=== PATIENT | male | born 1940 | race Two or more races ===

== ENCOUNTER 2020-02-10 21:58 | Inpatient (IN) | payer MEDICARE, OTHER ==
[~2020-02-10] VITALS: Ht 167.6 cm; Wt 63.0 kg
[2020-02-10] MEDS ORDERED: ACETAMINOPHEN 650 MG/SUPP.RECT RC ONE ×2 (22:13→22:30)
--- NOTE | 2020-02-10 22:14 | NUR ---
PATIENT CAME TO ER BED 8 FROM [facility] C/O "MORE ALTERED THAN USUAL". PATIENT IS AAOX0. PATIENT IS RESPONSIVE TO PAINFUL STIMULI. PATIENT IS ON 15L OF NON REBREATHER UPON ARRIVAL. CONNECTED TO POTATO PEELER. RA HAS A 20G STARTED ON THE LEFT HAND.
[2020-02-10] MEDS ORDERED: IV NS 0.9% 500 ML BAG IV ONE (22:30)
[2020-02-10 22:38] LABS: BASOPHILS # (AUTO) 0.2 /CMM (0.0-0.2); BASOPHILS % (AUTO) 2.1 % (0.0-2.0); EOSINOPHILS % (AUTO) 0.1 % (0.0-6.0); HEMATOCRIT 41 % (39-51); HEMOGLOBIN 13.6 g/dL (13.5-17.5); LYMPHOCYTES # (AUTO) 1.4 /CMM (0.8-4.8); LYMPHOCYTES % (AUTO) 15.9 % (20.0-44.0); MEAN CORPUSCULAR HGB CONC 33 g/dl (31.0-36.0); MEAN CORPUSCULAR VOLUME 89 fL (80-96); MONOCYTES # (AUTO) 0.2 /CMM (0.1-1.30); MONOCYTES % (AUTO) 2.7 % (2.0-12.0); NEUTROPHILS # (AUTO) 7.2 /CMM (1.8-8.9); NEUTROPHILS % (AUTO) 79.2 % (43.0-81.0); PLATELET COUNT (AUTO) 239 /CMM (150-450); RED BLOOD CELL COUNT(AUTO) 4.63 MIL/uL (4.5-6.0); WHITE BLOOD COUNT (AUTO) 9.1 K/uL (4.3-11.0)
--- NOTE | 2020-02-10 22:39 | NUR ---
URINE, CULTURES, AND COVID SAMPLE SWAB TAKEN TO LAB.
--- NOTE | 2020-02-10 22:43 | NUR ---
PATIENT TAKEN TO CT.
[2020-02-10 22:47] LABS: APPEARANCE,URINE Cloudy (CLEAR); BILIRUBIN,URINE SMALL (NEGATIVE); BLOOD, URINE Moderate Ery/uL (NEGATIVE); COLOR,URINE Dark (YELLOW); KETONES,URINE Negative (NEGATIVE); LEUKOCYTE ESTERASE ,URINE Large (NEGATIVE); NITRITE, URINE Negative (NEGATIVE); PH,URINE 7.5 (5.0-8.0); PROTEIN,URINE >=300 mg/dl (NEGATIVE); UGLUCOSE Negative (NEGATIVE)
--- NOTE | 2020-02-10 22:49 | NUR ---
PATIENT RETURNED FROM CT.
[2020-02-10 22:50] LABS: CALCIUM, SERUM 8.8 mg/dL (8.5-10.1); CARBON DIOXIDE 25 mmol/L (21-32); CHLORIDE 105 mmol/L (98-107); CREATININE 1.9 mg/dL (0.6-1.3); GLUCOSE 126 mg/dL (74-106); POTASSIUM 4.3 mmol/L (3.5-5.1); SODIUM SERUM 139 mmol/L (136-145); UREA NITROGEN, BLOOD 49 mg/dL (7-18)
[2020-02-10] MEDS ORDERED: AZITHROMYCIN 500 MG in IV D5W 250 ML IV ONE (23:00)
[2020-02-10] MEDS ORDERED: CEFTRIAXONE 1GM BAG (ER ONLY) 1 GM/50 ML PIGGYBACK IV ONE (23:00)
[2020-02-10 23:03] LABS: ALANINE AMINOTRANSFERASE 25 U/L (12-78); ALBUMIN 2.4 g/dL (3.4-5.0); ALKALINE PHOSPHATASE 71 U/L (46-116); ASPARTATE AMINOTRANSFERASE 35 U/L (15-37); B-TYPE NATRIURETIC PEPTIDE 2653 PG/ML (0-125); BILIRUBIN,DIRECT 0.1 mg/dL (0.0-0.2); BILIRUBIN,TOTAL 0.2 mg/dL (0.2-1.0); TOTAL PROTEIN, SERUM 7.2 g/dL (6.4-8.2)
[2020-02-10] MEDS ORDERED: CEFTRIAXONE 1GM BAG (ER ONLY) 50 ML IV ONE (23:03)
[2020-02-10 23:14] LABS: BACTERIA,URINE Many /HPF (None Seen); RBC,URINE 51-80 /HPF (0-2); SQUAMOUS EPITHELIAL CELL,UR Rare /HPF (None Seen); WBC,URINE 51-80 /HPF (0-3)
[2020-02-10] MEDS ORDERED: AZITHROMYCIN 500 MG VIAL ONE (23:24)
[2020-02-10] MEDS ORDERED: ASPIRIN 300 MG/SUPP.RECT RC ONE ×2 (23:30→23:54)
--- NOTE | 2020-02-10 23:38 | NUR ---
CALLED FOR [facility] BED
[2020-02-11] MEDS ORDERED: ONDANSETRON HCL/PF 4 MG/2 ML VIAL IVP PRN
[2020-02-11] MEDS ORDERED: MAGNESIUM HYDROXIDE 30 ML UDC PO PRN
[2020-02-11] MEDS ORDERED: ACETAMINOPHEN 325 MG TABLET PO PRN
[2020-02-11] MEDS ORDERED: ZOLPIDEM TARTRATE 5 MG TABLET PO PRN
[2020-02-11] MEDS ORDERED: MAG HYDROX/AL HYDROX/SIMETH 30 ML UDC PO PRN
[2020-02-11] MEDS ORDERED: Z GUARD REMEDY 2 OZ OINT TP PRN
--- NOTE | 2020-02-11 00:03 | NUR ---
SEEN AND EXAMINED BY DR. RAZO.
--- NOTE | 2020-02-11 00:18 | NUR ---
[facility] CALLED FOR REPORT, STAFF SAID THAT THEY ARE BUSY, WILL CALL BACK AT 10MIN.
--- NOTE | 2020-02-11 00:34 | NUR ---
REPORT GIVEN TO BAKARI MCHUGH FOR RENALDO.
[2020-02-11 01:00] VITALS: BP 94/34
--- NOTE | 2020-02-11 01:00 | NUR ---
RN NOTE PATIENT ARRIVED FROM ER ACCOMPANIED BY 2 RNS UNDER ACLS PROTOCOL. PT CAME IN VIA GURNEY AND TRANSFERRED TO BED WITH 2 PERSON ASSIST. PT ARRIVED WITH 15L NON REBREATHER, PLACED ON TELE MONITOR WHICH SHOWS SINUS RHTHYM, PT IS NON VERBAL BUT PHYSICALLY RESPONSIVE TO VERBAL AND TACTILE STIMULI. VITAL SIGNS TAKEN AND WNL. COMPREHENSIVE PHYSICAL ASSESSMENT COMPLETED, PT KEPT CLEAN AND COMFORTABLE, CALL LIGHT WITHIN REACH, SAFETY MEASURES IN PLACE, NO FURTHER NEEDS AT THIS TIME.
--- NOTE | 2020-02-11 01:45 | NUR ---
RN NOTE PT CODE STATUS CURRENTLY NOT KNOWN, ATTEMPTED TO CALL SNF ([facility]) X 2 BUT NO ANSWER. ATTEMPTED TO CALL KALLI MILLIGAN (PRIMARY CONTACT) [phone] BUT NO ANSWER. WILL ENDORSE TO FOLLOW UP IN AM. PT WILL BE FULL CODE FOR NOW.
[2020-02-11 04:00] VITALS: BP 90/42
[2020-02-11 07:01] LABS: BASOPHILS % (AUTO) 0.1 % (0.0-2.0); HEMATOCRIT 39 % (39-51); HEMOGLOBIN 13.1 g/dL (13.5-17.5); LYMPHOCYTES # (AUTO) 1.1 /CMM (0.8-4.8); LYMPHOCYTES % (AUTO) 10.7 % (20.0-44.0); MEAN CORPUSCULAR HGB CONC 34 g/dl (31.0-36.0); MEAN CORPUSCULAR VOLUME 87 fL (80-96); MONOCYTES # (AUTO) 0.2 /CMM (0.1-1.30); MONOCYTES % (AUTO) 2.1 % (2.0-12.0); NEUTROPHILS # (AUTO) 8.7 /CMM (1.8-8.9); NEUTROPHILS % (AUTO) 87.1 % (43.0-81.0); PLATELET COUNT (AUTO) 244 /CMM (150-450); RED BLOOD CELL COUNT(AUTO) 4.44 MIL/uL (4.5-6.0)
[2020-02-11 07:22] LABS: CALCIUM, SERUM 8.1 mg/dL (8.5-10.1); CARBON DIOXIDE 23 mmol/L (21-32); CHLORIDE 106 mmol/L (98-107); CREATININE 1.8 mg/dL (0.6-1.3); GLUCOSE 92 mg/dL (74-106); MAGNESIUM 1.6 mg/dL (1.8-2.4); PHOSPHORUS 3.9 mg/dL (2.5-4.9); POTASSIUM 4.2 mmol/L (3.5-5.1); SODIUM SERUM 140 mmol/L (136-145); UREA NITROGEN, BLOOD 54 mg/dL (7-18)
[2020-02-11 07:24] LABS: CHOLESTEROL 88 mg/dL (<200); HDL CHOLESTEROL 15 mg/dL (40-60); LDL 39 mg/dL (0-99); THYROID STIMULATING HORMONE 3.717 uIU/mL (0.358-3.74); TRIGLYCERIDES 80 mg/dL (30-150)
--- NOTE | 2020-02-11 07:30 | NUR ---
[facility] RN NOTES RECEIVED PATIENT, OPENS EYES, NON VERBAL, ON 15L NONREBREATHER MASK, NOT IN ANY DISTRESS, RESPIRATION UNLABORED, SINUS RHYTHM, NO SIGNS OF PAIN, SEE NURSING FLOWSHEET FOR SKIN ISSUES. WITH LEFT HAND G 20 AND RT WRIST G 20, FLUSHES WELL, BOTH SITES CLEAR. NPO AT THIS TIME, ISOLATION PRECAUTION OBSERVED, BED LOW LOCKED, CALL LIGHT WITHIN REACH. WILL MONITOR.
[2020-02-11] MEDS ORDERED: ATOR40TA PO (07:43)
[2020-02-11] MEDS ORDERED: MEGE400O4 PO (07:43)
[2020-02-11] MEDS ORDERED: MULT-447 PO (07:43)
[2020-02-11] MEDS ORDERED: MAGN400O6 PO (07:43)
[2020-02-11] MEDS ORDERED: ASCO-352 PO (07:43)
[2020-02-11] MEDS ORDERED: DOCU-141 PO (07:43)
[2020-02-11] MEDS ORDERED: BISA10SU11 RC (07:43)
[2020-02-11] MEDS ORDERED: ACET-2605 PO (07:43)
[2020-02-11] MEDS ORDERED: APIX5TAB PO (07:43)
[2020-02-11] MEDS ORDERED: NA P133E RC (07:43)
[2020-02-11] MEDS ORDERED: ACET-868 PO (07:43)
[2020-02-11] MEDS ORDERED: GABA-532 PO (07:43)
[2020-02-11] MEDS ORDERED: BACL10TA PO (07:43)
[2020-02-11] MEDS ORDERED: HYDR-4384 PO ×2 (07:43)
[2020-02-11 08:00] VITALS: BP 95/42
[2020-02-11] MEDS: ASPIRIN EC 81 MG TABLET.DR PO SCH (08:26)
[2020-02-11] MEDS: PANTOPRAZOLE 40 MG TABLET.DR PO SCH (08:26)
[2020-02-11] MEDS ORDERED: Magnesium 1GM/D5W 100ML PREMIX 50 ML IV SCH (08:47)
--- NOTE | 2020-02-11 09:30 | NUR ---
RN NOTES DUE MEDS GIVEN
[2020-02-11] MEDS: Sodium Bicarbonate 100 MEQ in IV D5/0.45 NACL 1,000 ML IV PRN (10:27)
[2020-02-11] MEDS ORDERED: IV NS 0.9% 1,000 ML IV PRN (11:24)
[2020-02-11 12:00] VITALS: BP 100/53
[2020-02-11] MEDS: ENOXAPARIN SODIUM 30 MG/0.3 ML DISP.SYRIN SQ SCH (12:26)
[2020-02-11 16:00] VITALS: BP 103/63
[2020-02-11] MEDS: IV D5/ 0.9% NACL 1,000 ML IV PRN (18:19)
--- NOTE | 2020-02-11 19:10 | NUR ---
project finance analyst opening notes Received Pt from morning nurse. Pt is resting in bed comfortably. Pt is nonverbal and able to open eyes. Respiration is normal in 15 L non rebreather mask. No SOB. No S/S of distress noted. Tele monitor showed SR Hr at 73 bpm. L hand# 20 is clean, intact and patent. R wrist is clean, intact and patent. Pt status is NPO. Isolation precautions is maintained. Safety precautions is maintained. Bed at low position, brakes locked, side rails upX3, bed alarm is on and call light is within reach. Will continue to monitor.
--- NOTE | 2020-02-11 19:40 | NUR ---
RN NOTES ALL NEEDS MET. STABLE, NOT IN ANY DISTRESS. ENDORSED TO NEXT SHIFT FOR RENALDO.
[2020-02-11 20:00] VITALS: BP 100/54
--- NOTE | 2020-02-11 20:45 | NUR ---
iron worker apprentice notes Jonnathan from lab called to informed Pt's blood cx is gram positive cocci in cluster. MD is notified and informed. Charge nurse is aware and informed. Will continue to monitor.
--- NOTE | 2020-02-11 20:55 | NUR ---
2054 DR RAZO WAS NOTIFIED OF CRITICAL BLOOD CULTURE RESULT GRAM POSITIVE COCCI IN CLUSTERS WITH NO ORDER MADE.
[2020-02-11] MEDS: CEFTRIAXONE 1 G in IV D5W 50 ML IV SCH (22:02)
[2020-02-12] VITALS: BP 90/40
[2020-02-12] MEDS ORDERED: AZITHROMYCIN 500 MG in IV D5W 250 ML IV SCH ×2
--- NOTE | 2020-02-12 00:01 | NUR ---
cognos administrator notes Pt keep removing non rebreather. Made aware risks and benefits. Pt keep removing non rebreather. Pt is not compliant. Pt also scratched the staff. Informed and notified Dr. Tavares. ordered bilateral soft wrist restraints. Order carried out. Charge nurse is aware and informed. Will continue to monitor.
[2020-02-12 04:00] VITALS: BP 116/54
--- NOTE | 2020-02-12 06:26 | NUR ---
lighting technician closing notes Pt is resting in bed comfortably. Pt is nonverbal and able to open eyes. Respiration is normal in 15 L non rebreather mask. No SOB. No S/S of distress noted. Tele monitor showed SR with bundle branch Hr at 89 bpm. Vs is stable. Afebrile. Routine meds were given as ordered. L hand# 20 is clean, intact and patent. R wrist is clean, intact and patent. Wound care provided as ordered. Kept Pt clean, dry and comfortable. Bilateral soft wrist restraints are intact, skin is warm to touch, circulation is check Q 2 hr. Isolation precautions is maintained. Safety precautions is maintained. Bed at low position, brakes locked, side rails upX3, bed alarm is on and call light is within reach. Will endorse to morning nurse for RENALDO.
[2020-02-12] MEDS: PANTOPRAZOLE 40 MG TABLET.DR PO SCH (07:30)
[2020-02-12 08:00] VITALS: BP 111/60
--- NOTE | 2020-02-12 08:00 | NUR ---
SMOKE EATER OPENING NOTES RECEIVED PATIENT IN BED, NON VERBAL, EYES OPEN, RESPOND TO VOICE COMMAND, 15L NON REBREATHER MASK, NO SIGNS OF REPIRATORY DISTRESS, NPO, FOR FURTHER SWALLOW EVAL, LEFT HAND #20, RIGHT WRIST #20, D5NS @ 75ML/HR, NA HCO3 @ 75ML/HR, SIDE RAILS UP.
[2020-02-12 08:01] LABS: BASOPHILS % (AUTO) 0.1 % (0.0-2.0); EOSINOPHILS % (AUTO) 0.1 % (0.0-6.0); HEMATOCRIT 38 % (39-51); HEMOGLOBIN 12.7 g/dL (13.5-17.5); LYMPHOCYTES # (AUTO) 0.6 /CMM (0.8-4.8); LYMPHOCYTES % (AUTO) 9.6 % (20.0-44.0); MEAN CORPUSCULAR HGB CONC 34 g/dl (31.0-36.0); MEAN CORPUSCULAR VOLUME 87 fL (80-96); MONOCYTES # (AUTO) 0.2 /CMM (0.1-1.30); MONOCYTES % (AUTO) 2.7 % (2.0-12.0); NEUTROPHILS # (AUTO) 5.4 /CMM (1.8-8.9); NEUTROPHILS % (AUTO) 87.5 % (43.0-81.0); PLATELET COUNT (AUTO) 271 /CMM (150-450); RED BLOOD CELL COUNT(AUTO) 4.29 MIL/uL (4.5-6.0); WHITE BLOOD COUNT (AUTO) 6.1 K/uL (4.3-11.0)
[2020-02-12 08:50] LABS: ALBUMIN 2.2 g/dL (3.4-5.0); BILIRUBIN,TOTAL 0.3 mg/dL (0.2-1.0); CALCIUM, SERUM 8.4 mg/dL (8.5-10.1); CREATININE 1.3 mg/dL (0.6-1.3); MAGNESIUM 1.8 mg/dL (1.8-2.4); TOTAL PROTEIN, SERUM 6.8 g/dL (6.4-8.2)
[2020-02-12] MEDS: ASPIRIN EC 81 MG TABLET.DR PO SCH (09:00)
[2020-02-12] MEDS: ENOXAPARIN SODIUM 30 MG/0.3 ML DISP.SYRIN SQ SCH (09:57)
[2020-02-12] MEDS: IV D5/ 0.9% NACL 1,000 ML IV PRN (10:04)
[2020-02-12 12:00] VITALS: BP 106/62
[2020-02-12] MEDS: DOXYCYCLINE HYCLATE (100 MG) 100 MG TABLET PO SCH (12:00)
[2020-02-12] MEDS: Sodium Bicarbonate 100 MEQ in IV D5/0.45 NACL 1,000 ML IV PRN (12:02)
[2020-02-12 12:53] LABS: ABG BASE EXCESS 0.6 mmol/L; ABG OXYGEN SATURATION 97.9 % (92.0-98.5); ABG PCO2 32.1 mmHg (35.0-45.0); ABG PO2 98.9 mmHg (75.0-100.0); COHb 0.4 % (0.5-1.5); MetHb 0.3 % (0.0-1.5); O2Hb 97.2 % (94.0-97.0); SITE, ABG Left Radial
[2020-02-12] MEDS: HYDROXYCHLOROQUINE 200 MG TABLET PO SCH ×2 (13:00→17:00)
--- NOTE | 2020-02-12 13:04 | NUR ---
RT NOTE ABG RESULTS RELAYED TO LOLITA FABIAN.
--- NOTE | 2020-02-12 13:05 | NUR ---
MARKETING REP NOTES DR. WHITE INFORMED REGARDING PATIENT'S ABG RESULT.
[2020-02-12] MEDS ORDERED: FEE PK DOSING 1 MIN EA MC ONE (13:08)
--- NOTE | 2020-02-12 13:10 | NUR ---
PARASITOLOGY TEACHER NOTES VIBRAMYCIN AND PLAQUENIL MEDICATION NOT GIVEN. PATIENT WAS NOT ABLE TO TOLERATE DRINKING WATER. RISK FOR ASPIRATION. PATIENT IS ALSO NON VERBAL.
[2020-02-12] MEDS: methylPREDNISolone SOD SUCC 125 MG/2ML VIAL IV SCH (13:16)
[2020-02-12 13:20] LABS: CALCIUM, SERUM 8.5 mg/dL (8.5-10.1); CREATININE 1.3 mg/dL (0.6-1.3); POTASSIUM 4.3 mmol/L (3.5-5.1)
[2020-02-12 13:34] LABS: C-REACTIVE PROTEIN 23.3 mg/dL (0.0-0.9)
--- NOTE | 2020-02-12 13:40 | NUR ---
RT NOTE LOLITA FABIAN INFORMED RT PER . PELEG PT KEPT IN [facility]. PT ON 100% NON REBREATHER AT 15L.
[2020-02-12] MEDS: VANCOMYCIN 1 GM in IV D5W 250 ML IV SCH (14:09)
--- NOTE | 2020-02-12 15:39 | NUR ---
BOOM PUMP OPERATOR NOTES COVID TEST SENT.
[2020-02-12 16:00] VITALS: BP 115/61
[2020-02-12] MEDS ORDERED: Sodium Phosphate 15 MMOL in IV NS 0.9% 245 ML IV SCH (17:00)
--- NOTE | 2020-02-12 18:00 | NUR ---
OIL WELL GUN PERFORATOR OPERATOR NOTES PLAQUENIL NOT GIVEN. PATIENT WAS UNABLE TO TOLERATE WATER AND SOUP. PATIENT IS RISK FOR ASPIRATION AND NON VERBAL.
--- NOTE | 2020-02-12 19:15 | NUR ---
TRACKWALKER CLOSING NOTES ENDORSED PATIENT IN BED, NON VERBAL, EYES OPEN, RESPOND TO VOICE COMMAND, 15L NON REBREATHER MASK, NO SIGNS OF REPIRATORY DISTRESS, NPO, FOR FURTHER SWALLOW EVAL, LEFT HAND #20, RIGHT WRIST #20, D5NS @ 75ML/HR, INFUSING WELL, NO REDNESS OR INFILTRATION NOTED, SIDE RAILS UP FOR SAFETY.
--- NOTE | 2020-02-12 19:20 | NUR ---
RN NOTE RECEIVED PATIENT IN BED RESTING, WITH HOB ELEVATED. A&O X1. PATIENT IS CONFUSED. ON ISOLATION FOR COVID. BREATHING IS EVEN AND NON LABORED. NO SOB NOTED AT THIS TIME. ON O2 15 LPM VIA NON-REBREATHER MASK. PATIENT IS UNABLE TO AMBULATE. EXTREMITIES ARE RIGID. BLE ARE CONTRACTED. IV SITES ON LEFT HAND AND RIGHT WRIST CLEAN AND PATENT. IN NO APPARENT DISTRESS NOTED AT THIS TIME. BED IS LOWERED TO LOWEST LEVEL FOR SAFETY. WILL CONTINUE TO MONITOR.
[2020-02-12 20:00] VITALS: BP 116/66
[2020-02-12] MEDS: CEFTRIAXONE 1 G in IV D5W 50 ML IV SCH (23:04)
[2020-02-13] VITALS (7 sets, daily range): BP systolic 125–139; BP diastolic 60–80
[2020-02-13 05:09] LABS: CREATININE KINASE (CK),MB 3.9 ng/mL (0.0-10.4); PTH, INTACT 16 pg/mL (15-65)
[2020-02-13] MEDS: VANCOMYCIN 1 GM in IV D5W 250 ML IV SCH (06:03)
[2020-02-13] MEDS: IV D5/ 0.9% NACL 1,000 ML IV PRN ×2 (06:03→23:06)
--- NOTE | 2020-02-13 06:46 | NUR ---
RN NOTE PATIENT REMAINED STABLE THROUGHOUT THE NIGHT. NO SIGNIFICANT CHANGES NOTED. PATIENT KEPT CLEAN, DRY, AND COMFORTABLE. ALL WOUND CARE RENDERED. ALL DUE MEDS GIVEN ORDERED AND TOLERATED WELL. REPOSITIONED Q2H. ALL NEEDS ATTENDED AND MET. WILL ENDORSE TO AM SHIFT RN FOR CONTINUATION OF CARE.
[2020-02-13] MEDS: PANTOPRAZOLE 40 MG TABLET.DR PO SCH (07:30)
--- NOTE | 2020-02-13 08:00 | NUR ---
telecommunication tower technician note patient in bed, more awake and alert,non verbal at this time able to take Plaquenil at this time , on nonrebreather mask 15 l ,sat 100% on tele monitor sr hr 85, rt hand is swollen unable to flush hl well bed in lowest and locked position , will cont to monitor, on ivf as ordered, not in distress at this time , hold breakfast per edann roberts dnp notes, will f\u Addendum: 02/13/20 at 0908 by ANDI VAUGHAN RN 0800 rt arm and rt hand is swollen , keep elevated will inform to
[2020-02-13 08:01] LABS: BASOPHILS % (AUTO) 0.1 % (0.0-2.0); CALCIUM, SERUM 8.2 mg/dL (8.5-10.1); CREATININE 0.9 mg/dL (0.6-1.3); HEMATOCRIT 35 % (39-51); HEMOGLOBIN 11.7 g/dL (13.5-17.5); LYMPHOCYTES # (AUTO) 0.5 /CMM (0.8-4.8); LYMPHOCYTES % (AUTO) 11.6 % (20.0-44.0); MEAN CORPUSCULAR HGB CONC 34 g/dl (31.0-36.0); MEAN CORPUSCULAR VOLUME 87 fL (80-96); MONOCYTES # (AUTO) 0.3 /CMM (0.1-1.30); MONOCYTES % (AUTO) 6.8 % (2.0-12.0); NEUTROPHILS # (AUTO) 3.3 /CMM (1.8-8.9); NEUTROPHILS % (AUTO) 81.5 % (43.0-81.0); PLATELET COUNT (AUTO) 290 /CMM (150-450); POTASSIUM 3.3 mmol/L (3.5-5.1); RED BLOOD CELL COUNT(AUTO) 3.94 MIL/uL (4.5-6.0); WHITE BLOOD COUNT (AUTO) 4.1 K/uL (4.3-11.0)
[2020-02-13] MEDS: HYDROXYCHLOROQUINE 200 MG TABLET PO SCH ×2 (08:29→16:50)
[2020-02-13] MEDS: methylPREDNISolone SOD SUCC 125 MG/2ML VIAL IV SCH (08:31)
[2020-02-13] MEDS: ENOXAPARIN SODIUM 30 MG/0.3 ML DISP.SYRIN SQ SCH (08:32)
[2020-02-13] MEDS: ASPIRIN EC 81 MG TABLET.DR PO SCH (08:41)
[2020-02-13] MEDS: THERAHONEY GEL 1.5 OZ TUBE TP SCH (08:42)
[2020-02-13] MEDS ORDERED: POTASSIUM CHLORIDE 20 MEQ TAB.PRT.SR PO SCH (10:30)
--- NOTE | 2020-02-13 10:46 | NUR ---
INSTALLERS MECHANICAL NOTE SPOKE WITH DR WHITE NOTIFIED RT ARM SWOLLEN NO DOPPLER STUDY AT THIS TIME OK TO ELEVATE ARM TOLERATED ALSO SPOKE WITH DR PERALES OK TO ORDER SWALLOW EVAL TODAY .PATENT MORE ALERT ,WILL F\U
[2020-02-13 11:25] LABS: ABG OXYGEN SATURATION 98.3 % (92.0-98.5); SITE, ABG Right Radial
[2020-02-13 11:26] LABS: ABG BASE EXCESS 0.7 mmol/L; ABG PCO2 32.7 mmHg (35.0-45.0); ABG PH 7.475 (7.350-7.450); ABG PO2 126.8 mmHg (75.0-100.0); AaDO2 409.3 mmHg; COHb 1.1 % (0.5-1.5); MetHb 0.7 % (0.0-1.5); O2Hb 95.7 % (94.0-97.0); VENT MODE, BG nrb
[2020-02-13] MEDS: DOXYCYCLINE HYCLATE (100 MG) 100 MG TABLET PO SCH (11:54)
[2020-02-13] MEDS ORDERED: INVESTIGATIONAL MED MISC 1 EA in IV NS 0.9% 250 ML IV ONE (12:00)
--- NOTE | 2020-02-13 13:00 | NUR ---
RN NOTE PICC LINE NURSE AT BED SIDE MIDLINE 18 G INSERTED FRANCHESCA. WILL MONITOR
--- NOTE | 2020-02-13 17:17 | NUR ---
telecommunications network planner note unable to remove soft restrain, patient still at risk to remove all lines
--- NOTE | 2020-02-13 18:51 | NUR ---
telegraph lineman note all needs attended ,will cont to monitor closely ,on 6l of nc ,not in distress
[2020-02-13] MEDS: CEFTRIAXONE 1 G in IV D5W 50 ML IV SCH (22:57)
[2020-02-14] VITALS (8 sets, daily range): BP systolic 125–157; BP diastolic 62–81
--- NOTE | 2020-02-14 | NUR ---
RN NOTES FREQUENT ROUNDING DONE. NO DISTRESS NOTED. PATIENT AWAKE, REQUESTED FOR WATER BY POINTING AT CUP, EXPLAINED HE IS STILL NPO, GAVE ICE CHIPS INSTEAD, TOLERATED WELL. WILL CONT TO MONITOR.
[2020-02-14] MEDS: VANCOMYCIN 1 GM in IV D5W 250 ML IV SCH ×2 (01:24→19:03)
--- NOTE | 2020-02-14 04:51 | NUR ---
RN NOTES LAB PERSONNEL GEORGE STATED PATIENT'S COVID19 RESULT INDETERMINATE. MADE AWARE. AWAITING FOR RESPONSE.
[2020-02-14 07:05] LABS: CALCIUM, SERUM 8.1 mg/dL (8.5-10.1); CREATININE 0.9 mg/dL (0.6-1.3); POTASSIUM 4.1 mmol/L (3.5-5.1)
--- NOTE | 2020-02-14 07:20 | NUR ---
RN NOTES PATIENT IN BED, AWAKE AND ALERT. ON TELE MONITOR SR-SB LOWEST 55 BPM NOTED. STILL ON OXYGEN 6L VIA SIMPLE MASK, TOLERATING WELL, SATURATING >95%. ON BILATERAL SOFT WRIST RESTRAIN FOR PATIENT SAFETY, FREQUENT CHECKS DONE PER PROTOCOL. IV SITES ALL FLUSHING AND PATENT, D5NS RUNNING AT 75ML/HR, TOLERATING WELL. RIGHT ARM STILL WITH NONPITTING EDEMA NOTED, ELEVATED, PER AM RN REPORT MD AWARE. ALL MD ORDERS ATTENDED, ALL NEEDS ANTICIPATED AND MET. REPOSITIONED PATIENT Q2H. SAFETY MEASURES MAINTAINED; CALL LIGHT WITHIN REACH, SIDE RAILS UP X2, HOB ELEVATED, BED LOCKED AND IN LOW POSITION. ENDORSED TO AM RN FOR RENALDO. Addendum: 02/14/20 at 0816 by CALLI CONTRERAS RN IN ADDITION, DR. RAZO MADE AWARE OF PATIENT COVID19 RESULT INDETERMINATE, NO NEW ORDERS NOTED.
--- NOTE | 2020-02-14 08:20 | NUR ---
DEMONSTRATOR SEWING TECHNIQUES OPENING NOTES PT A/O 1-2, ALERT AND RESPONSIVE. ON CONTACT/DROPLET ISOLATION DUE TO + COVID19, RESULT INTERMEDIATE, WAITING FOR PROVIDER RESPONSE. RESPIRATION EVEN AND NON LABORED WITH NO ACUTE RESPIRATORY DISTRESS, ON O2 AT 5LPM VIA N/C, HOB ELEVATED. ABD SOFT AND NON DISTENDED WITH ACTIVE BOWEL SOUNDS. SKIN WARM TO TOUCH AND DRY. NO S/SX OF PAIN AND DISCOMFORT. RIGHT ARM WITH NON PITTING EDEMA, FRANCHESCA MIDLINE RUNNING D5NS AT 75 ML/HR, LEFT HAND #20. PT SINUS BRADYCARDIA 50 PER TELE MONITOR. BED IN LOW LOCKED POSITION, SR X2 UP FOR SAFETY. WILL CONTINUE TO MONITOR CARE
[2020-02-14] MEDS: PANTOPRAZOLE 40 MG TABLET.DR PO SCH (08:24)
[2020-02-14] MEDS: methylPREDNISolone SOD SUCC 125 MG/2ML VIAL IV SCH (08:24)
[2020-02-14] MEDS: ASPIRIN EC 81 MG TABLET.DR PO SCH (08:24)
[2020-02-14] MEDS: ENOXAPARIN SODIUM 30 MG/0.3 ML DISP.SYRIN SQ SCH (08:25)
[2020-02-14] MEDS: HYDROXYCHLOROQUINE 200 MG TABLET PO SCH ×2 (08:27→16:53)
[2020-02-14] MEDS: THERAHONEY GEL 1.5 OZ TUBE TP SCH (08:28)
--- NOTE | 2020-02-14 10:19 | NUR ---
LAMP DECORATOR NOTES REPORT GIVEN TO ANGELLA AMADOR DNP. WHEN GIVEN MEDICATION CRUSH MEDS TO PATIENT, HE IS ABLE TO SWALLOW APPLE SAUCE AND WATER WITH NO THICKENER, NO COUGHING/CHOKING NOTED, HOB ELEVATED FR ASPIRATION PRECAUTION. NEW ORDER OBTAINED FROM THE PROVIDER TO ADVANCE DIET TO MECHANICAL SOFT. ORDER READ BACK NOTED AND CARRIED OUT. WILL MONITOR CARE
[2020-02-14] MEDS: DOXYCYCLINE HYCLATE (100 MG) 100 MG TABLET PO SCH (11:35)
--- NOTE | 2020-02-14 12:06 | NUR ---
DRY CHAIN PULLER NOTES COVID 19 SWAB RE-DONE TODAY DUE TO INTERMIDIATE RESULT FROM THE LAST TESTING. DROPPED OFF TO THE LAB
[2020-02-14] MEDS: INVESTIGATIONAL MED MISC 1 EA in IV NS 0.9% 250 ML IV SCH (12:11)
[2020-02-14] MEDS: IV D5/ 0.9% NACL 1,000 ML IV PRN (18:29)
--- NOTE | 2020-02-14 18:49 | NUR ---
FIG CAPRIFIER CLOSING NOTES PT A/O 1-2. NOT IN ACUTE RESPIRATORY DISTRESS SATING 95-100% AT 5LPM VIA N/C, HOB ELEVATED. BM X1 TODAY. NO NEW SKIN BREAKDOWN, WARM TO TOUCH AND DRY. NO S/SX OF PAIN AND DISCOMFORT. IV SITE AT RIGHT UPPER ARM MIDLINE RUNNING NS D5NS AT 75 ML/HR AND LEFT HAND #20, IV SITE PATENT IN FLUSHING, WITH NO S/SX OF INFILTRATION. TELE MONITOR SHOWS SINUS RHYTHM 79 WITH EPISODES OF SINUS BRADYCARDIA 40'S AND PVC. ON DROPLET/CONTACT ISOLATION DUE TO + COVID19. BED IN LOW LOCKED POSITION, SR X2 UP FOR SAFETY. ENDORSED PT CARE TO NEXT SHIFT.
[2020-02-14] MEDS: CEFTRIAXONE 1 G in IV D5W 50 ML IV SCH (23:03)
[2020-02-15] VITALS: BP 162/77
[2020-02-15 04:00] VITALS: BP 136/70
[2020-02-15 07:56] LABS: BASOPHILS % (AUTO) 0.1 % (0.0-2.0); CALCIUM, SERUM 7.8 mg/dL (8.5-10.1); CREATININE 0.8 mg/dL (0.6-1.3); HEMATOCRIT 36 % (39-51); HEMOGLOBIN 11.8 g/dL (13.5-17.5); LYMPHOCYTES # (AUTO) 1.1 /CMM (0.8-4.8); LYMPHOCYTES % (AUTO) 14.2 % (20.0-44.0); MAGNESIUM 1.6 mg/dL (1.8-2.4); MEAN CORPUSCULAR HGB CONC 33 g/dl (31.0-36.0); MEAN CORPUSCULAR VOLUME 87 fL (80-96); MONOCYTES # (AUTO) 0.7 /CMM (0.1-1.30); MONOCYTES % (AUTO) 8.9 % (2.0-12.0); NEUTROPHILS # (AUTO) 6.1 /CMM (1.8-8.9); NEUTROPHILS % (AUTO) 76.8 % (43.0-81.0); PHOSPHORUS 1.8 mg/dL (2.5-4.9); PLATELET COUNT (AUTO) 362 /CMM (150-450); POTASSIUM 3.3 mmol/L (3.5-5.1); WHITE BLOOD COUNT (AUTO) 7.9 K/uL (4.3-11.0)
[2020-02-15 08:00] VITALS: BP 130/76
--- NOTE | 2020-02-15 08:30 | NUR ---
tele section laborer: notes received pt in bed awake, alert to self only. reality orientation provided prn. pt is on o2 at 5l/min via n/c. hob elevated. isolation precaution maintained. will continue to monitor.
[2020-02-15] MEDS: ASPIRIN EC 81 MG TABLET.DR PO SCH (08:43)
[2020-02-15] MEDS: HYDROXYCHLOROQUINE 200 MG TABLET PO SCH ×2 (08:43→17:02)
[2020-02-15] MEDS: PANTOPRAZOLE 40 MG TABLET.DR PO SCH (08:43)
[2020-02-15] MEDS: ENOXAPARIN SODIUM 30 MG/0.3 ML DISP.SYRIN SQ SCH (08:44)
--- NOTE | 2020-02-15 09:30 | NUR ---
tele cell tuber machine: md visit seen and examined by dr. bacon with verbal order for wound consult re: right nares pressure ulcer. order carried out.
[2020-02-15 09:31] LABS: ALBUMIN 2.1 g/dL (3.4-5.0); BILIRUBIN,DIRECT 0.1 mg/dL (0.0-0.2); BILIRUBIN,TOTAL 0.4 mg/dL (0.2-1.0); TOTAL PROTEIN, SERUM 6.4 g/dL (6.4-8.2)
[2020-02-15] MEDS: methylPREDNISolone SOD SUCC 125 MG/2ML VIAL IV SCH (09:31)
--- NOTE | 2020-02-15 10:00 | NUR ---
tele counter intelligence technician: notes titrated o2 to 4l/min via n/c and satting at 98%. kept comfortable. will continue to monitor.
[2020-02-15] MEDS: Magnesium 1GM/D5W 100ML PREMIX 100 ML IV SCH ×2 (10:23→11:26)
[2020-02-15] MEDS ORDERED: POTASSIUM CHLORIDE 20 MEQ TAB.PRT.SR PO SCH (10:30)
--- NOTE | 2020-02-15 10:45 | NUR ---
tele burrer operator: morenita eval s.t. at bedside and did swallow eval and recommends puree diet with swallow safety precautions. md aware with change diet to puree. will continue to monitor.
--- NOTE | 2020-02-15 10:55 | NUR ---
tele poll clerk: notes lab called and informed me that pt covid result is positive. cn aware.
[2020-02-15] MEDS ORDERED: NEUTRA PHOS 1 POWD.PACKET PO ONE (11:00)
[2020-02-15 12:00] VITALS: BP 126/80
--- NOTE | 2020-02-15 12:00 | NUR ---
tele parcel post officer: notes pt remains confused and disoriented. reality orientation provided prn. will continue to monitor.
[2020-02-15] MEDS: DOXYCYCLINE HYCLATE (100 MG) 100 MG TABLET PO SCH (13:01)
[2020-02-15] MEDS: THERAHONEY GEL 1.5 OZ TUBE TP SCH (13:01)
[2020-02-15] MEDS: INVESTIGATIONAL MED MISC 1 EA in IV NS 0.9% 250 ML IV SCH (13:06)
[2020-02-15] MEDS: VANCOMYCIN 1 GM in IV D5W 250 ML IV SCH (14:20)
[2020-02-15 16:00] VITALS: BP 129/78
--- NOTE | 2020-02-15 16:00 | NUR ---
tele tongue and groove machine operator: notes pt in bed with eyes close. no s/s of resp. distress noted. on 4l of o2 via n/c and satting at 98%. hob elevated. will continue to monitor.
[2020-02-15] MEDS: IV D5/ 0.9% NACL 1,000 ML IV PRN (18:03)
--- NOTE | 2020-02-15 18:03 | NUR ---
tele city sanitarian: notes started on d5ns at 75ml/hr per md due to poor appetite despite pt pass his swallow eval and recommended puree diet. needs attended. will continue to monitor.
--- NOTE | 2020-02-15 19:00 | NUR ---
tele insecticide sprayer: notes report given to endy burton) for continuity of care.
--- NOTE | 2020-02-15 19:00 | NUR ---
tele auditing specialist: notes report given to madan burton) for continuity of care. Addendum: 02/15/20 at 1907 by SHAE NOBLE LVN above charting error.
--- NOTE | 2020-02-15 19:00 | NUR ---
RN OPENING NOTES PATIENT SLEEPING IN BED, BUT EASY TO AROUSE, ALERT HOWEVER CONFUSED. ON TELE MONITOR SB WITH HR 40'S. ON OXYGEN 5LPM VIA NASAL CANNULA, TOLERATING WELL, SATURATING >95%. ON BILATERAL SOFT WRIST RESTRAIN FOR PATIENT SAFETY, FREQUENT CHECKS WILL BE DONE PER PROTOCOL. IV SITES ALL FLUSHING AND PATENT, D5NS RUNNING AT 75ML/HR, TOLERATING WELL. RIGHT ARM NONPITTING EDEMA NOTED, ELEVATED WITH PILLOW. SAFETY MEASURES IN PLACE; CALL LIGHT WITHIN REACH, SIDE RAILS UP X2, HOB ELEVATED, BED LOCKED AND IN LOW POSITION. ISOLATION PRECAUTIONS IN PLACE. WILL CONT TO MONITOR PATIENT CLOSELY.
[2020-02-15 20:00] VITALS: BP 139/64
[2020-02-15] MEDS: CEFTRIAXONE 1 G in IV D5W 50 ML IV SCH (22:17)
[2020-02-16] VITALS: BP 144/70
--- NOTE | 2020-02-16 | NUR ---
RN NOTES FREQUENT ROUNDING DONE; PATIENT SLEEPING IN BED, NO ACUTE DISTRESS NOTED, SATURATING WNL. WILL CONT TO MONITOR.
[2020-02-16] MEDS: IV D5/ 0.9% NACL 1,000 ML IV PRN ×2 (03:57→20:06)
[2020-02-16 04:00] VITALS: BP 147/64
[2020-02-16] MEDS: VANCOMYCIN 1 GM in IV D5W 250 ML IV SCH ×2 (06:30→17:34)
--- NOTE | 2020-02-16 07:08 | NUR ---
RN CLOSING NOTES PATIENT IN BED, AWAKE AND ALERT. ON TELE MONITOR SR-SB LOWEST 42 BPM WHEN SLEEPING NOTED. STILL ON OXYGEN 4L VIA NC, TOLERATING WELL, SATURATING 95%. ON BILATERAL SOFT WRIST RESTRAIN FOR PATIENT SAFETY, FREQUENT CHECKS DONE PER PROTOCOL. IV SITE FRANCHESCA MIDLINE FLUSHING AND PATENT, IVF RUNNING AT 75ML/HR, TOLERATING WELL. ALL MD ORDERS ATTENDED, ALL NEEDS ANTICIPATED AND MET. REPOSITIONED PATIENT Q2H. SAFETY MEASURES MAINTAINED; CALL LIGHT WITHIN REACH, SIDE RAILS UP X2, HOB ELEVATED, BED LOCKED AND IN LOW POSITION. ISOLATION PRECAUTION MAINTAINED. ENDORSED TO AM RN FOR RENALDO.
--- NOTE | 2020-02-16 07:30 | NUR ---
RN OPENING NOTE RECEIVED PATIENT RESTING IN BED. ON 5L O2 TOLERATING WELL, SATURATING WELL. NO SIGNS OF RESPIRATORY DISTRESS NOTED. PATIENT IS A/O X1, CONFUSED AND IS ON RESTRAINTS DUE TO PT PULLING TUBES AND INTERFERING WITH CARE. RESTRAINTS ASSESSED PER PROTOCOL. FRANCHESCA MIDLINE INTACT, PATENT AND FLUSHED WELL. BLOOD RETURN PRESENT. RUNNING D5NS ORDERED. PATIENT SAFETY MAINTAINED, CALL LIGHT WITHIN REACH, WILL CONTINUE TO MONITOR CLOSELY.
[2020-02-16 07:39] LABS: CALCIUM, SERUM 7.8 mg/dL (8.5-10.1); CREATININE 0.8 mg/dL (0.6-1.3); PHOSPHORUS 2.4 mg/dL (2.5-4.9); POTASSIUM 3.7 mmol/L (3.5-5.1)
[2020-02-16 08:00] VITALS: BP 135/43
[2020-02-16 08:08] LABS: *SPE A/G RATIO 0.6 (0.7-1.7); *SPE ALBUMIN 2.2 g/dL (2.9-4.4); *SPE ALPHA-1-GLOBULIN 0.4 g/dL (0.0-0.4); *SPE ALPHA-2-GLOBULIN 1.3 g/dL (0.4-1.0); *SPE BETA GLOBULIN 0.9 g/dL (0.7-1.3); *SPE GLOBULIN, TOTAL 3.4 g/dL (2.2-3.9); *SPE M-SPIKE Not Observed g/dL (Not Observed); *SPEGAMMA GLOBULIN 0.9 g/dL (0.4-1.8)
[2020-02-16] MEDS: ASPIRIN EC 81 MG TABLET.DR PO SCH (08:12)
[2020-02-16] MEDS: HYDROXYCHLOROQUINE 200 MG TABLET PO SCH ×2 (08:13→17:24)
[2020-02-16] MEDS: methylPREDNISolone SOD SUCC 125 MG/2ML VIAL IV SCH (08:13)
[2020-02-16] MEDS: PANTOPRAZOLE 40 MG TABLET.DR PO SCH (08:13)
[2020-02-16] MEDS: ENOXAPARIN SODIUM 30 MG/0.3 ML DISP.SYRIN SQ SCH (08:14)
[2020-02-16] MEDS: THERAHONEY GEL 1.5 OZ TUBE TP SCH (08:15)
--- NOTE | 2020-02-16 09:11 | NUR ---
WOUND CARE CONSULT: RECEIVED CONSULT FOR RT VICENTAE. REVIEWED CHART, NURSING DOCUMENTATION AND PHOTOS WHICH SHOW CRUSTED LESION TO RT NOSTRIL/UPPER LIP AREA. DEFER TO MD FOR LESION. RN TO DISCUSS WITH HOSPICE NURSE PRACTITIONER/IAmaury CHO TODAY. ALL SKIN PROTECTION MEASURES IN PLACE AND DISCUSSED WITH NURSING STAFF. PT ON LAYNE ISOFLEX LOW AIRLOSS BED. MD IN AGREEMENT WITH PLAN OF CARE.
[2020-02-16 09:33] LABS: C-REACTIVE PROTEIN 3.5 mg/dL (0.0-0.9)
[2020-02-16] MEDS: K PHOS NEUTRAL 250 MG TABLET PO ONE ×2 (11:14→11:27)
[2020-02-16] MEDS: DOXYCYCLINE HYCLATE (100 MG) 100 MG TABLET PO SCH (11:27)
[2020-02-16] MEDS ORDERED: POTASSIUM PHOSPHATE MM 15 MMOL in IV NS 0.9% 250 ML IV SCH (11:30)
[2020-02-16 11:34] LABS: BASOPHILS % (AUTO) 0.4 % (0.0-2.0); EOSINOPHILS % (AUTO) 0.1 % (0.0-6.0); HEMATOCRIT 41 % (39-51); HEMOGLOBIN 13.5 g/dL (13.5-17.5); LYMPHOCYTES # (AUTO) 1.2 /CMM (0.8-4.8); LYMPHOCYTES % (AUTO) 16.5 % (20.0-44.0); MEAN CORPUSCULAR HGB CONC 33 g/dl (31.0-36.0); MEAN CORPUSCULAR VOLUME 88 fL (80-96); MONOCYTES # (AUTO) 0.6 /CMM (0.1-1.30); MONOCYTES % (AUTO) 8.3 % (2.0-12.0); NEUTROPHILS # (AUTO) 5.6 /CMM (1.8-8.9); NEUTROPHILS % (AUTO) 74.7 % (43.0-81.0); PLATELET COUNT (AUTO) 388 /CMM (150-450); RED BLOOD CELL COUNT(AUTO) 4.68 MIL/uL (4.5-6.0); WHITE BLOOD COUNT (AUTO) 7.5 K/uL (4.3-11.0)
--- NOTE | 2020-02-16 11:35 | NUR ---
RN NOTE Remdesivir IV IS NOT AVAILABLE ON THE UNIT. CALLED THE PHARMACY. PHARMACY WAITING ON LAB RESULTS BEFORE SENDING THE MEDICATION. WILL NOTIFY ME WHEN IT IS READY. PATIENT SAFETY IS MAINTAINED, CALL LIGHT WITHIN REACH, WILL CONTINUE TO MONITOR.
[2020-02-16 11:40] LABS: ALBUMIN 2.2 g/dL (3.4-5.0); BILIRUBIN,DIRECT 0.1 mg/dL (0.0-0.2); BILIRUBIN,TOTAL 0.3 mg/dL (0.2-1.0); CALCIUM, SERUM 8.2 mg/dL (8.5-10.1); POTASSIUM 4.2 mmol/L (3.5-5.1); TOTAL PROTEIN, SERUM 6.7 g/dL (6.4-8.2)
[2020-02-16 12:00] VITALS: BP 142/80
[2020-02-16 16:00] VITALS: BP 139/73
--- NOTE | 2020-02-16 18:47 | NUR ---
RN OPENING NOTE RECEIVED PATIENT RESTING IN BED. ON 5L O2 TOLERATING WELL, SATURATING WELL. NO SIGNS OF RESPIRATORY DISTRESS NOTED. PATIENT IS A/O X1, CONFUSED AND IS ON RESTRAINTS DUE TO PT PULLING TUBES AND INTERFERING WITH CARE. RESTRAINTS ASSESSED PER PROTOCOL. FRANCHESCA MIDLINE INTACT, PATENT AND FLUSHED WELL. BLOOD RETURN PRESENT. RUNNING D5NS ORDERED. PATIENT SAFETY MAINTAINED, CALL LIGHT WITHIN REACH, WILL CONTINUE TO MONITOR CLOSELY. Addendum: 02/16/20 at 1850 by EARNEST FAIRBANKS RN WRONG TIME DOCUMENTED. NOTE FOR 0730 AM
--- NOTE | 2020-02-16 18:50 | NUR ---
RN CLOSING NOTES NO ACUTE CHANGES TO PATIENT CONDITION DURING MY SHIFT. REMAINED ON 5L O2 VIA NC, TOLERATING WELL. RESTRAINTS ASSESSED FREQUENTLY. REMDESIVIR BROUGHT UP BY THE PHARMACY, INSTRUCTED TO ADMINISTER AFTER VANCOMYCIN. VANCO IS CURRENTLY RUNNING AT THE MOMENT. WILL ENDORSE TO PM NURSE TO HANG REMDESIVIR SOON VANCO IS FINISHED RUNNING. PATIENT SAFETY IS MAINTAINED, CALL LIGHT WITHIN REACH, WILL ENDORSE TO PM NURSE TO CONTINUE CARE.
--- NOTE | 2020-02-16 19:41 | NUR ---
SLAG WORKER OPENING NOTES PATIENT RECEIVED RESTING IN BED, A/OX1, CONFUSED/LETHARGIC; BREATHING EVEN AND UNLABORED; NO SOB NOTED; PATIENT TOLERATING 5L NC WELL; TELE MONITOR READS SINUS ANDRZEJ - SINUS RHYTHM 56 - 60S BPM; R UA MIDLINE INTACT AND PATENT; INFUSING D5NS @ 75ML/HR; PER AM SHIFT, VANCOMYCIN STILL RUNNING AND UNABLE TO GIVE SCHEDULED REMDESIVIR BAG #3 AT 1200; PER AM SHIFT, AWAITING LAB DRAW AND PHARMACY UNABLE TO BRING MEDICATION TO UNIT; WILL HANG BAG #3 ONCE VANCO IS COMPLETED; SAFETY PRECAUTIONS IMPLEMENTED; BED LOCKED IN LOW POSITION; SIDE RAILS X2; CALL LIGHT WITHIN REACH; WILL CONT PLAN OF CARE AND TO MONITOR PATIENT Addendum: 02/16/20 at 1942 by SHERRIE LOPEZ RN BAG #2 SCHEDULED 02/16/20 1200; NOT BAG 3; WILL CONT TO MONITOR
[2020-02-16 20:00] VITALS: BP 111/86
[2020-02-16] MEDS: INVESTIGATIONAL MED MISC 1 EA in IV NS 0.9% 250 ML IV SCH (20:04)
[2020-02-17] VITALS: BP 141/81
[2020-02-17 04:00] VITALS: BP 145/95
[2020-02-17] MEDS: VANCOMYCIN 1 GM in IV D5W 250 ML IV SCH ×2 (05:00→17:07)
--- NOTE | 2020-02-17 06:49 | NUR ---
SEALS ENGRAVER CLOSING NOTES PATIENT RESTING IN BED COMFORTABLY; A/OX1; CONFUSED; BREATHING EVEN AND UNLABORED; PATIENT TOLERATING 5L NC WELL, SPO2 >95%; NO SOB NOTED; TELE MONITOR READS SINUS ANDRZEJ - SINUS RHYTM - SINUS TACHY; PATIENT HR AT REST LOWEST 40 BPM; R UA MIDLINE INTACT; INFUSING D5NS @ 75ML/HR; TOLERATING IVF WELL; NO S/S OF REDNESS OR INFILTRATION NOTED; BILATERAL SOFT WRIST RESTRAINTS APPLIED; NO EVIDENCE OF SKIN BREAKDOWN; ALL NEEDS RENDERED; ISOLATION PRECAUTIONS MAINTAINED; SAFETY PRECAUTIONS IMPLEMENTED; BED LOCKED IN LOW POSITION; SIDE RAILS X2; WILL ENDORSE RENALDO TO ONCOMING SHIFT
--- NOTE | 2020-02-17 07:00 | NUR ---
RN TELE1 OPENING NOTES PATIENT A/O X1 PATIENT CONFUSED ; LETHARGIC PATIENT IS AWAKE AND RESTING COMFORTABLE IN BED. PATIENT ON EXTERNAL MONITOR 50'S SB ASYMPTOMATIC. ON N/C 5L SATURATING >95%. PATIENT HAS MULTIPLE WOUNDS R HEEL STAGE 3 COVER WITH MEPLEX DRY DRESSING, R NARE AND L LEFT DRY DRESSING IN PLACE, ALL WOUNDS CLEAN AND DRY. PATIENT IS ON CARDIAC PURREE DIET. R UA MIDLINE D6NS @ 75 ML/ HR. BED LOCKED LOWEST POSITION CALL [facility] WITH IN REACH ALL SAFETY MEASURE IMPLEMENTED PER HOSPITAL POLICY
[2020-02-17 07:02] LABS: BASOPHILS % (AUTO) 0.2 % (0.0-2.0); EOSINOPHILS % (AUTO) 0.3 % (0.0-6.0); HEMATOCRIT 38 % (39-51); HEMOGLOBIN 12.5 g/dL (13.5-17.5); LYMPHOCYTES # (AUTO) 1.5 /CMM (0.8-4.8); MEAN CORPUSCULAR HGB CONC 33 g/dl (31.0-36.0); MEAN CORPUSCULAR VOLUME 87 fL (80-96); MONOCYTES # (AUTO) 0.4 /CMM (0.1-1.30); NEUTROPHILS # (AUTO) 6.6 /CMM (1.8-8.9); NEUTROPHILS % (AUTO) 77.5 % (43.0-81.0); PLATELET COUNT (AUTO) 407 /CMM (150-450); RED BLOOD CELL COUNT(AUTO) 4.31 MIL/uL (4.5-6.0); WHITE BLOOD COUNT (AUTO) 8.5 K/uL (4.3-11.0)
[2020-02-17 07:16] LABS: CALCIUM, SERUM 7.5 mg/dL (8.5-10.1); CREATININE 0.8 mg/dL (0.6-1.3); PHOSPHORUS 1.9 mg/dL (2.5-4.9); POTASSIUM 3.3 mmol/L (3.5-5.1)
[2020-02-17] MEDS: PANTOPRAZOLE 40 MG TABLET.DR PO SCH ×2 (07:30→09:29)
--- NOTE | 2020-02-17 07:36 | NUR ---
POLICE STENOGRAPHER LAB VANC 50.9 LAB DRAW (0630)AFTER MEDICATION WAS GIVEN (0500).
[2020-02-17 08:00] VITALS: BP 144/68
[2020-02-17] MEDS: ASPIRIN EC 81 MG TABLET.DR PO SCH ×2 (09:00→09:28)
[2020-02-17] MEDS: ENOXAPARIN SODIUM 30 MG/0.3 ML DISP.SYRIN SQ SCH ×2 (09:00→09:30)
[2020-02-17] MEDS: methylPREDNISolone SOD SUCC 125 MG/2ML VIAL IV SCH (09:29)
[2020-02-17] MEDS: THERAHONEY GEL 1.5 OZ TUBE TP SCH (09:32)
--- NOTE | 2020-02-17 09:52 | NUR ---
NEWSPAPER CORRESPONDENT AM MEDS - PATIENT REFUSED MEDICATIONS PATIENT WAS INFORMED 3X THE RISK AND BENIFITS OF MEDICATION COMPLIANCE . PATIENT ABLE FOLLOW SIMPLES AND AWARE OF SELF
[2020-02-17] MEDS ORDERED: POTASSIUM CHLORIDE 20 MEQ POWDER PACKET PO SCH (11:00)
[2020-02-17] MEDS ORDERED: NEUTRA PHOS 1 POWD.PACKET PO ONE (11:30)
[2020-02-17 12:00] VITALS: BP 162/68
--- NOTE | 2020-02-17 12:16 | NUR ---
AIRLINE MANAGERIAL SUPERVISOR - PHARMACY WAITING FOR IV MEDICATION TO BE GIVEN PHARMACY TOLD ME THAT MEDICATIONS HAVE TO HAVE INR PRIOR TO BEING GIVEN
[2020-02-17] MEDS: DOXYCYCLINE HYCLATE (100 MG) 100 MG TABLET PO SCH (12:27)
[2020-02-17 13:09] LABS: BILIRUBIN,DIRECT 0.1 mg/dL (0.0-0.2); BILIRUBIN,TOTAL 0.4 mg/dL (0.2-1.0); CALCIUM, SERUM 7.6 mg/dL (8.5-10.1); CREATININE 0.9 mg/dL (0.6-1.3); POTASSIUM 3.4 mmol/L (3.5-5.1); TOTAL PROTEIN, SERUM 5.7 g/dL (6.4-8.2)
[2020-02-17] MEDS: INVESTIGATIONAL MED MISC 1 EA in IV NS 0.9% 250 ML IV SCH (14:06)
[2020-02-17 16:00] VITALS: BP 139/80
[2020-02-17] MEDS: IV D5/ 0.9% NACL 1,000 ML IV PRN (17:05)
[2020-02-17] MEDS: ENSURE ENLIVE CHOC 237 ML CAN PO SCH (17:25)
--- NOTE | 2020-02-17 18:00 | NUR ---
LOLITA KNOX - Ozzie . ANTIBIOTICS GIVEN
--- NOTE | 2020-02-17 18:32 | NUR ---
RN TELE1 PATIENT REMAINS STABLE AT THIS TIME. NO CHANGE IN PATIENT CONDITION. PATIENT STILL REFUSED MEDICAITIONS AND FOOD THAT WAS OFFERED TO PATIENT. BED LOCKED LOWEST POSITION CALL LIGHT WITH IN REACH ALL SAFETY MEASURE IMPLEMENTED PER HOSPITAL POLICY .
--- NOTE | 2020-02-17 19:35 | NUR ---
AIR TRAFFIC CONTROL OPERATOR OPENING NOTES RECEIVED PATIENT FROM MORNING SHIFT, ALERT AND ORIENTED X 1 CONFUSED. BREATHING REGULAR AND UNLABORED ON OXYGEN AT 5L/MIN VIA NASAL CANNULA. RIGHT UPPER ARM MIDLINE INTACT AND PATENT, INFUSING WELL WITH NO BLEEDING OR S/S OF INFILTRATION NOTED. ON CARDIAC MONITORING WITH NSR AT 69bpm. BILATERAL SOFT WRIST RESTRAINTS ON, SKIN ASSESSMENT DONE. NO S/S OF PAIN/DISCOMFORT NOTED AT THIS TIME. CALL LIGHT IN REACH. WILL CONTINUE TO MONITOR.
[2020-02-17 20:00] VITALS: BP 145/74
[2020-02-18] VITALS: BP 150/75
[2020-02-18 04:00] VITALS: BP 146/67
--- NOTE | 2020-02-18 04:00 | NUR ---
PUNCH BOX TENDER NOTES ON-GOING WOUND TREATMENTS PROVIDED, BOTH HEELS OFFLOADED. REPOSITIONING EVERY 2HRS AND NEEDED.
[2020-02-18] MEDS: VANCOMYCIN 1 GM in IV D5W 250 ML IV SCH (05:23)
[2020-02-18] MEDS: IV D5/ 0.9% NACL 1,000 ML IV PRN ×2 (05:24→22:53)
[2020-02-18 06:33] LABS: BASOPHILS % (AUTO) 0.2 % (0.0-2.0); EOSINOPHILS % (AUTO) 0.3 % (0.0-6.0); HEMATOCRIT 33 % (39-51); HEMOGLOBIN 11.4 g/dL (13.5-17.5); LYMPHOCYTES # (AUTO) 1.7 /CMM (0.8-4.8); LYMPHOCYTES % (AUTO) 18.2 % (20.0-44.0); MEAN CORPUSCULAR HGB CONC 34 g/dl (31.0-36.0); MEAN CORPUSCULAR VOLUME 86 fL (80-96); MONOCYTES # (AUTO) 0.6 /CMM (0.1-1.30); MONOCYTES % (AUTO) 6.3 % (2.0-12.0); NEUTROPHILS # (AUTO) 6.9 /CMM (1.8-8.9); PLATELET COUNT (AUTO) 431 /CMM (150-450); RED BLOOD CELL COUNT(AUTO) 3.87 MIL/uL (4.5-6.0); WHITE BLOOD COUNT (AUTO) 9.2 K/uL (4.3-11.0)
--- NOTE | 2020-02-18 06:35 | NUR ---
SCALE ATTENDANT CLOSING NOTES PATIENT IN BED ALERT AND ORIENTED X 1 CONFUSED. AFEBRILE WITH NO S/S OF DISTRESS OBSERVED. ON OXYGEN AT 5L/MIN VIA NASAL CANNULA; LATEST SPO2 99%. RIGHT UPPER ARM MIDLINE PATENT AND INFUSING WELL. MAINTAINED ON CARDIAC MONITORING WITH NSR AT 69bpm. NO S/S OF PAIN/DISCOMFORT NOTED THE WHOLE SHIFT. MAINTAINED ON BILATERAL SOFT WRIST RESTRAINTS. CIRCULATION AND SKIN ASSESSMENT DONE. CALL LIGHT IN REACH. WILL ENDORSE TO MORNING SHIFT FOR RENALDO.
[2020-02-18 06:46] LABS: BILIRUBIN,DIRECT 0.1 mg/dL (0.0-0.2); BILIRUBIN,TOTAL 0.5 mg/dL (0.2-1.0); CALCIUM, SERUM 7.6 mg/dL (8.5-10.1); CREATININE 0.7 mg/dL (0.6-1.3); PHOSPHORUS 1.8 mg/dL (2.5-4.9); POTASSIUM 3.2 mmol/L (3.5-5.1); TOTAL PROTEIN, SERUM 5.6 g/dL (6.4-8.2)
[2020-02-18 07:11] LABS: C-REACTIVE PROTEIN 2.2 mg/dL (0.0-0.9)
[2020-02-18] MEDS: PANTOPRAZOLE 40 MG TABLET.DR PO SCH (07:51)
[2020-02-18] MEDS: ENSURE ENLIVE CHOC 237 ML CAN PO SCH ×3 (07:54→17:06)
[2020-02-18 08:00] VITALS: BP 140/70
--- NOTE | 2020-02-18 08:00 | NUR ---
RN OPENING NOTES RECEIVED PATIENT IN BED ALERT AND ORIENTED X 2. AFEBRILE WITH NO S/S OF DISTRESS OBSERVED. ON OXYGEN AT 5L/MIN VIA NASAL CANNULA; SAT SPO2 99%. RIGHT UPPER ARM MIDLINE PATENT AND INFUSING WELL. MAINTAINED ON CARDIAC MONITORING WITH NSR AT 69bpm. NO S/S OF PAIN/DISCOMFORT NOTED. PATIENT DENIES PAIN. MAINTAINED ON BILATERAL SOFT WRIST RESTRAINTS. CIRCULATION AND SKIN ASSESSMENT COMPLETED Q1HR. CALL LIGHT IN REACH. WILL CONTINUE TO MONITOR.
[2020-02-18] MEDS: ASPIRIN EC 81 MG TABLET.DR PO SCH (08:06)
[2020-02-18] MEDS: ENOXAPARIN SODIUM 30 MG/0.3 ML DISP.SYRIN SQ SCH (08:12)
[2020-02-18] MEDS: THERAHONEY GEL 1.5 OZ TUBE TP SCH (08:23)
--- NOTE | 2020-02-18 09:00 | NUR ---
on assessment, the patient's lung sounds seem dimished with crackles on the left lobes. it has been reported to Seb (hospitalist).
[2020-02-18] MEDS: POTASSIUM CHLORIDE 20 MEQ TAB.PRT.SR PO SCH ×2 (10:25→10:52)
[2020-02-18 11:33] LABS: ABG BASE EXCESS -2.2 mmol/L; ABG OXYGEN SATURATION 94.1 % (92.0-98.5); ABG PCO2 27.4 mmHg (35.0-45.0); ABG PH 7.482 (7.350-7.450); AaDO2 186.7 mmHg; COHb 0.3 % (0.5-1.5); MetHb 0.4 % (0.0-1.5); O2Hb 93.4 % (94.0-97.0); SITE, ABG Right Radial; VENT MODE, BG Nasal Cannula
[2020-02-18 12:00] VITALS: BP_SYST 135; BP_SYST 147; BP_DIAS 58; BP_DIAS 73
--- NOTE | 2020-02-18 14:49 | NUR ---
when rounding the patient, the patient requested pain medication. unable to state pain level, but has facial grimacing. Tylenol has been given. will be reassessing medication in an hour.
[2020-02-18] MEDS ORDERED: NEUTRA PHOS 1 POWD.PACKET PO ONE (15:00)
--- NOTE | 2020-02-18 15:46 | NUR ---
pain has been reassessed, no facial grimacing at this time. - wound care has been performed on sacral area and both feet - patient has been cleaned and bed linen has been changed - will continue to monitor the patient
[2020-02-18 16:00] VITALS: BP_SYST 140; BP_SYST 144; BP_DIAS 67; BP_DIAS 70
[2020-02-18] MEDS: VANCOMYCIN 0.75 GM in IV D5W 250 ML IV SCH (17:00)
--- NOTE | 2020-02-18 18:08 | NUR ---
RN CLOSING NOTES PATIENT IS IN BED ALERT AND ORIENTED X 2. AFEBRILE WITH NO S/S OF DISTRESS OBSERVED. ON OXYGEN AT 5L/MIN VIA NASAL CANNULA; SAT SPO2 96%. RIGHT UPPER ARM MIDLINE PATENT AND INFUSING WELL. MAINTAINED ON CARDIAC MONITORING WITH NSR AT 77bpm. NO S/S OF PAIN/DISCOMFORT NOTED. PATIENT DENIES PAIN. MAINTAINED ON BILATERAL SOFT WRIST RESTRAINTS. CAP REFILL LESS THAN 3 SEC. SKIN INTACT. CALL LIGHT IN REACH. WILL ENDORSE THE NEXT SHIFT.
--- NOTE | 2020-02-18 18:08 | NUR ---
rn closing notes
[2020-02-18 20:00] VITALS: BP 126/61
[2020-02-18] MEDS: HYDROCODONE/APAP 5/325MG 1 EACH TABLET PO PRN (22:37)
[2020-02-19] VITALS: BP 136/84
[2020-02-19] MEDS: HYDROCODONE/APAP 5/325MG 1 EACH TABLET PO PRN (03:14)
[2020-02-19 04:00] VITALS: BP 138/64
[2020-02-19] MEDS: VANCOMYCIN 0.75 GM in IV D5W 250 ML IV SCH ×2 (06:39→18:15)
[2020-02-19 07:03] LABS: CALCIUM, SERUM 6.9 mg/dL (8.5-10.1); CREATININE 0.8 mg/dL (0.6-1.3); PHOSPHORUS 1.6 mg/dL (2.5-4.9); POTASSIUM 3.1 mmol/L (3.5-5.1)
--- NOTE | 2020-02-19 07:30 | NUR ---
RN OPENING NOTE: RECEIVED PATIENT IN BED THIS MORNING. PATIENT IS ALERT AND ORIENTED X1, FOLLOWS COMMANDS. PATIENT ON 5L/MIN O2 VIA NC, SATING WELL, NO SIGNS OF ACUTE RESPIRATORY DISTRESS NOTED. NO SIGNS OF ACUTE DISTRESS NOTED. TELE READING SR IN THE 80S. BED BOUND AND CONTRACTED. WOUND CARE PER ORDERS. PUREE DIET, CRUSH MEDS, THIN LIQUIDS. MIDLINE AT FRANCHESCA, FLUSHES WELL, C/D/I, NO SIGNS OF COMPLICATIONS NOTED. ISOLATIONS PRECAUTIONS FOR + COVID 19 RESULTS. SAFETY MEASURES IMPLEMENTED, BED IN LOWEST POSITION, LOCKED, SIDE RAILS UP X2, CALL LIGHT WITHIN REACH. WILL CONTINUE TO MONITOR PATIENT FOR CHANGES.
[2020-02-19 07:52] LABS: BASOPHILS % (AUTO) 0.2 % (0.0-2.0); HEMATOCRIT 31 % (39-51); HEMOGLOBIN 10.5 g/dL (13.5-17.5); LYMPHOCYTES # (AUTO) 1.6 /CMM (0.8-4.8); LYMPHOCYTES % (AUTO) 16.8 % (20.0-44.0); MEAN CORPUSCULAR HGB CONC 34 g/dl (31.0-36.0); MEAN CORPUSCULAR VOLUME 86 fL (80-96); MONOCYTES # (AUTO) 0.5 /CMM (0.1-1.30); MONOCYTES % (AUTO) 5.7 % (2.0-12.0); NEUTROPHILS # (AUTO) 7.3 /CMM (1.8-8.9); NEUTROPHILS % (AUTO) 76.3 % (43.0-81.0); PLATELET COUNT (AUTO) 379 /CMM (150-450); RED BLOOD CELL COUNT(AUTO) 3.61 MIL/uL (4.5-6.0); WHITE BLOOD COUNT (AUTO) 9.5 K/uL (4.3-11.0)
[2020-02-19 08:00] VITALS: BP 130/66
[2020-02-19] MEDS ORDERED: POTASSIUM PHOSPHATE MM 15 MMOL in IV NS 0.9% 250 ML IV SCH (08:00)
[2020-02-19] MEDS: ASPIRIN EC 81 MG TABLET.DR PO SCH (08:47)
[2020-02-19] MEDS: PANTOPRAZOLE 40 MG TABLET.DR PO SCH (08:47)
[2020-02-19] MEDS: ENOXAPARIN SODIUM 40 MG/0.4 ML DISP.SYRIN SQ SCH (08:52)
[2020-02-19] MEDS: ENSURE ENLIVE CHOC 237 ML CAN PO SCH ×3 (09:48→17:46)
[2020-02-19] MEDS: THERAHONEY GEL 1.5 OZ TUBE TP SCH (09:49)
[2020-02-19 11:05] LABS: ABG BASE EXCESS 0.6 mmol/L; ABG PCO2 30.1 mmHg (35.0-45.0); ABG PH 7.502 (7.350-7.450); ABG PO2 69.4 mmHg (75.0-100.0); AaDO2 94.7 mmHg; COHb 0.5 % (0.5-1.5); MetHb 0.2 % (0.0-1.5); O2Hb 94.3 % (94.0-97.0); SITE, ABG Right Radial; VENT MODE, BG NC 2 L
[2020-02-19 12:00] VITALS: BP 128/70
[2020-02-19] MEDS ORDERED: POTASSIUM CHLORIDE 20 MEQ POWDER PACKET PO SCH (15:30)
[2020-02-19 16:00] VITALS: BP 132/68
--- NOTE | 2020-02-19 18:59 | NUR ---
RN CLOSING NOTE: PATIENT REMAINS IN BED. NO SIGNS OF ACUTE DISTRESS NOTED. SR IN THE 70S W/ OCCASIONAL PAC ON TELE MONITOR. SAFETY MEASURES IMPLEMENTED, BED IN LOWEST POSITION, LOCKED, SIDE RAILS UP X2, CALL LIGHT WITHIN REACH. WILL ENDORSE TO ONCOMING SHIFT RN FOR CONTINUITY OF CARE.
[2020-02-19] MEDS: IV D5/ 0.9% NACL 1,000 ML IV PRN (19:00)
[2020-02-19 20:00] VITALS: BP 149/71
[2020-02-20] VITALS: BP_SYST 138; BP_DIAS 56; BP_DIAS 58
[2020-02-20] MEDS: IV D5/ 0.9% NACL 1,000 ML IV PRN (02:17)
[2020-02-20 04:00] VITALS: BP 140/73
[2020-02-20] MEDS: VANCOMYCIN 0.75 GM in IV D5W 250 ML IV SCH (04:39)
[2020-02-20 06:44] LABS: BASOPHILS % (AUTO) 0.3 % (0.0-2.0); EOSINOPHILS % (AUTO) 1.4 % (0.0-6.0); HEMATOCRIT 33 % (39-51); HEMOGLOBIN 11.2 g/dL (13.5-17.5); LYMPHOCYTES # (AUTO) 1.7 /CMM (0.8-4.8); LYMPHOCYTES % (AUTO) 15.7 % (20.0-44.0); MEAN CORPUSCULAR HGB CONC 34 g/dl (31.0-36.0); MEAN CORPUSCULAR VOLUME 87 fL (80-96); MONOCYTES # (AUTO) 0.7 /CMM (0.1-1.30); MONOCYTES % (AUTO) 6.4 % (2.0-12.0); NEUTROPHILS # (AUTO) 8.1 /CMM (1.8-8.9); NEUTROPHILS % (AUTO) 76.2 % (43.0-81.0); PLATELET COUNT (AUTO) 422 /CMM (150-450); RED BLOOD CELL COUNT(AUTO) 3.85 MIL/uL (4.5-6.0); WHITE BLOOD COUNT (AUTO) 10.6 K/uL (4.3-11.0)
--- NOTE | 2020-02-20 06:44 | NUR ---
RN notes Patient in bed awake, alert with confusion and episodes of shouting in a very clear tone. No distress noted. breathing even and unlabored. On O2 at 2.5lpm via nasal cannula with O2sat of 91 - 93%. Increased 02 to 5lpm, O2sat went up rto 98-100%. No significant change of condition. Vital signs within normal level. No physical manifestation of pain or discomfort. Kept clean and dry. Will endorse to next shift for continuity of care.
[2020-02-20 07:01] LABS: BILIRUBIN,TOTAL 0.7 mg/dL (0.2-1.0); CALCIUM, SERUM 7.5 mg/dL (8.5-10.1); CREATININE 0.8 mg/dL (0.6-1.3); MAGNESIUM 1.5 mg/dL (1.8-2.4); PHOSPHORUS 2.4 mg/dL (2.5-4.9); TOTAL PROTEIN, SERUM 5.4 g/dL (6.4-8.2)
[2020-02-20 08:00] VITALS: BP_SYST 137; BP_SYST 138; BP_DIAS 68; BP_DIAS 74
--- NOTE | 2020-02-20 08:45 | NUR ---
WELLNESS MANAGER- PATIENT REFUSED TO EAT ATTEMPTED 3X TIMES. PATIENT STILL REFUSED. WAS OFFERED ENSURE ONLY DRANK TWO SIPS
[2020-02-20] MEDS: PANTOPRAZOLE 40 MG TABLET.DR PO SCH (08:54)
[2020-02-20] MEDS: ASPIRIN EC 81 MG TABLET.DR PO SCH (08:54)
[2020-02-20] MEDS: ENOXAPARIN SODIUM 40 MG/0.4 ML DISP.SYRIN SQ SCH (08:56)
[2020-02-20] MEDS: THERAHONEY GEL 1.5 OZ TUBE TP SCH (09:12)
[2020-02-20] MEDS: ENSURE ENLIVE CHOC 237 ML CAN PO SCH ×3 (09:12→17:06)
--- NOTE | 2020-02-20 10:00 | NUR ---
RN TELE1 PATIENT REFUSED TO TAKE MORNING MEDICATION. PATIENT INFORMED 3X TIMES PT EDUCATION. RISK AND BENIFITS. PATIENT STILL REFUSED. PATIENT ABLE TO ANSWER YES AND NO QUESTION.
[2020-02-20] MEDS ORDERED: Magnesium 1GM/D5W 100ML PREMIX 100 ML IV SCH (10:31)
[2020-02-20] MEDS: Magnesium 1GM/D5W 100ML PREMIX 100 ML IV SCH ×2 (10:52→12:38)
[2020-02-20] MEDS ORDERED: K PHOS NEUTRAL 250 MG TABLET PO ONE (11:00)
[2020-02-20 12:00] VITALS: BP 156/57
--- NOTE | 2020-02-20 13:15 | NUR ---
MILLING/POLISHING OPERATOR - PATIENT REFUSED TO EAT FOOD, RN AND SHAREPOINT ARCHITECT ATTEMPTED 3X TIMES . PATIENT STILL REFUSED .
[2020-02-20 16:00] VITALS: BP 130/66
--- NOTE | 2020-02-20 18:25 | NUR ---
RN TELE1 NO CHANGE IN PATIENT CONDITION AT THIS TIME. PATIENT VITALS REMAINS STABLES, NO PAIN, NO ACUTE RESPIRATORY DISTRESS, TURNED AND REPOSITION Q2H, PATIENT AM CARE COMPLETED, EDUCATION AND MEDCATION GIVEN TO PATIENT. BED LOCKED AND LOWEST POSITION CALL LIGHT WITH IN REACH ALL SAFETY MEASURE IMPLEMENTED
--- NOTE | 2020-02-20 19:25 | NUR ---
RN OPENING NOTES PATIENT IS IN BED ALERT AND ORIENTED X 2. AFEBRILE WITH NO S/S OF DISTRESS OBSERVED. ON OXYGEN AT 5L/MIN VIA NASAL CANNULA; SAT SPO2 96%. RIGHT UPPER ARM MIDLINE PATENT AND INFUSING WELL. MAINTAINED ON CARDIAC MONITORING WITH NSR AT 77bpm. NO S/S OF PAIN/DISCOMFORT NOTED. PATIENT DENIES PAIN. MAINTAINED ON BILATERAL SOFT WRIST RESTRAINTS. CAP REFILL LESS THAN 3 SEC. SKIN INTACT. CALL LIGHT IN REACH. WILL CONTINUE TO MONITOR.
[2020-02-20 20:00] VITALS: BP 134/68
[2020-02-20] MEDS: HYDROCODONE/APAP 5/325MG 1 EACH TABLET PO PRN (23:36)
--- NOTE | 2020-02-20 23:54 | NUR ---
Patient continuously was screaming, " why.... why.... god.... god..." When asked if he had pain, he said yes. Unable to state pain level but evident by facial grimacing and yelling. [place] was given. Will monitor the patients response to the medication.
[2020-02-21] VITALS: BP 114/54
--- NOTE | 2020-02-21 00:48 | NUR ---
PAIN REASSESSMENT: PATIENT SEEM MORE RELAX AT THIS TIME. NO FACIAL GRIMACING AND YELLING HAS STOPPED.
[2020-02-21 04:00] VITALS: BP 114/54
[2020-02-21] MEDS: IV D5/ 0.9% NACL 1,000 ML IV PRN (05:20)
[2020-02-21] MEDS: VANCOMYCIN 0.75 GM in IV D5W 250 ML IV SCH (05:55)
--- NOTE | 2020-02-21 07:00 | NUR ---
DOMAIN ARCHITECT 1 OPENING PATIENT ALERT X1 . RESPONSIVE TO NAME, ABLE TO ANSWER YES/ NO QUESTION. ON ISOLATION FOR COVID-19 (+) . ON NASAL CANNULA @ 4LMP PATIENT SATURATING 80'S NURSING INTERVENTIONS DONE, HEAD OF THE BED UP, RT NOTIFIED. INFORMED. PATIENT SATURATING 94% PATIENT ON EXTERNAL MONITOR SR 90'S PATIENT HAS DIAPER, RIGHT HEEL WOUND AND LEFT FOOT REDNESS CLEANED DRY DRESSING WOUND TX . PATIENT ON PUREE DIET, FRANCHESCA MIDLINE WITH D5NS @ 75 ML/HR. BED LOCKED AND LOWEST POSITION CALL LIGHT WITH IN REACH ALL SAFETY MEASURE IMPLEMENTED PER HOSPITAL POLICY .
[2020-02-21] MEDS: PANTOPRAZOLE 40 MG TABLET.DR PO SCH (07:30)
[2020-02-21 08:00] VITALS: BP_SYST 114; BP_SYST 148; BP_DIAS 54; BP_DIAS 78
[2020-02-21 08:19] LABS: BASOPHILS # (AUTO) 0.1 /CMM (0.0-0.2); BASOPHILS % (AUTO) 0.5 % (0.0-2.0); EOSINOPHILS % (AUTO) 0.9 % (0.0-6.0); HEMATOCRIT 34 % (39-51); HEMOGLOBIN 11.5 g/dL (13.5-17.5); LYMPHOCYTES # (AUTO) 1.9 /CMM (0.8-4.8); LYMPHOCYTES % (AUTO) 14.5 % (20.0-44.0); MEAN CORPUSCULAR HGB CONC 34 g/dl (31.0-36.0); MEAN CORPUSCULAR VOLUME 87 fL (80-96); MONOCYTES % (AUTO) 7.4 % (2.0-12.0); NEUTROPHILS # (AUTO) 10.2 /CMM (1.8-8.9); NEUTROPHILS % (AUTO) 76.7 % (43.0-81.0); PLATELET COUNT (AUTO) 420 /CMM (150-450); RED BLOOD CELL COUNT(AUTO) 3.91 MIL/uL (4.5-6.0); WHITE BLOOD COUNT (AUTO) 13.4 K/uL (4.3-11.0)
[2020-02-21 08:33] LABS: CALCIUM, SERUM 7.6 mg/dL (8.5-10.1); CREATININE 0.8 mg/dL (0.6-1.3); MAGNESIUM 1.8 mg/dL (1.8-2.4); PHOSPHORUS 2.2 mg/dL (2.5-4.9); POTASSIUM 3.5 mmol/L (3.5-5.1)
[2020-02-21] MEDS: ASPIRIN EC 81 MG TABLET.DR PO SCH (09:00)
[2020-02-21] MEDS: ENOXAPARIN SODIUM 40 MG/0.4 ML DISP.SYRIN SQ SCH (09:00)
--- NOTE | 2020-02-21 09:00 | NUR ---
LOLITA WHITE ORDER XRAY / ABG
--- NOTE | 2020-02-21 09:21 | NUR ---
BAR TACKER SEWING MACHINE - FEEDING PATIENT ABLE TO DRINK ENSURE. BUT DID NOT WANT PUREE FOODS.
[2020-02-21] MEDS ORDERED: NEUTRA PHOS 1 POWD.PACKET PO ONE (09:30)
[2020-02-21 10:29] LABS: ABG BASE EXCESS 0.7 mmol/L; ABG OXYGEN SATURATION 96.9 % (92.0-98.5); ABG PCO2 34.1 mmHg (35.0-45.0); ABG PH 7.466 (7.350-7.450); ABG PO2 94.8 mmHg (75.0-100.0); AaDO2 295.5 mmHg; COHb 0.3 % (0.5-1.5); MetHb 0.4 % (0.0-1.5); O2Hb 96.2 % (94.0-97.0); SITE, ABG Left Radial; VENT MODE, BG 10L SM
[2020-02-21] MEDS: ENSURE ENLIVE CHOC 237 ML CAN PO SCH ×3 (10:49→17:13)
[2020-02-21] MEDS: THERAHONEY GEL 1.5 OZ TUBE TP SCH (10:50)
--- NOTE | 2020-02-21 10:51 | NUR ---
MEDIA ANALYTICS MANAGER PATIENT REFUSED TO TAKE MEDICATION, PATIENT STARTS TO BITE THE SPOON AND SPITS OUT MEDICATION PATIENT EDUCATION 3X TIMES RISK NAD BENEFITS, PATIENT STILL REFUSES TO TAKE MEDICATION
[2020-02-21 12:00] VITALS: BP 108/49
[2020-02-21 16:00] VITALS: BP 106/66
--- NOTE | 2020-02-21 18:47 | NUR ---
RN TELE1 CLOSING PATIENT REMAINS STABLE AT THIS TIME, VITALS STABLE, NO ACUTE RESPIRATORY DISTRESS. NO PAIN. PATIENT A/O X1. ABLE TO ANSWER YES NO QUESTIONS. AM CARE COMPLETED, WOUND TX DONE, BED LOCKED AND LOWEST POSITION CALL LIGHT WITH IN REACH ALL SAFETY MEASURES IMPLEMENTED PER HOSPITAL POLICY. PATIENT TURNED AND REPOSITION Q2H
--- NOTE | 2020-02-21 19:30 | NUR ---
TECHNICIAN BIOLOGICAL HEALTH OPENING NOTES: RECEIVED PT A/OX1; NOT RESPONSIVE. PT IN BED RESTING COMFORTABLY. PATIENT IN NO S/SX OF ACUTE DISTRESS AT THIS TIME. NO SOB NOTED. PATIENT'S BREATHING IS EVEN AND UNLABORED. PATIENT IS ON 4 L OF OXYGEN VIA NC; TOLERATING WELL. PATIENT ON TELE MONITORING READING SINUS RHYTHM HR IS @90s NOTED IV SITE ON FRANCHESCA MIDLINE #18 ; PATENT IN INTACT,NO S/S OF INFECTION OR INFILTRATION. PATIENT ON DIAPERS. PATIENT HAS BILATERAL SOFT WRIST RESTRAINTS IN PLACE, ASSESSED PER PROTOCOL. SAFETY MEASURES HAVE BEEN PROVIDED AND IMPLEMENTED. PATIENT BED ALARM IS ON. HEAD OF BED ELEVATED. BED IS LOCKED, IN LOWEST POSITION AND SIDE RAILS UP. CALL LIGHT WITHIN REACH OF THE PATIENT. ISOLATION PRECAUTIONS IN PLACE. WILL CONTINUE TO MONITOR AND REASSESS FOR ANY CHANGES.
[2020-02-21 20:00] VITALS: BP 160/60
[2020-02-22 01:00] VITALS: BP 110/51
[2020-02-22] MEDS: IV D5/ 0.9% NACL 1,000 ML IV PRN (03:31)
[2020-02-22 04:00] VITALS: BP 160/70
--- NOTE | 2020-02-22 06:05 | NUR ---
RN NOTES VANCO IV PUT ON HOLD/PENDING VANCO TROUGH RESULT NOT YET AVAILABLE. CLINICAL EDUCATION MANAGER INFORMED. WILL ENDORSE TO AM SHIFT RN
--- NOTE | 2020-02-22 06:30 | NUR ---
RN CLOSING NOTE: PATIENT REMAINS IN ROOM RESTING COMFORTABLY. PATIENT IN NO ACUTE DISTRESS. NO SOB NOTED, PT BREATHING IS EVEN AND UNLABORED. PATIENT IS CLEAN , DRY AND COMFORTABLE THROUGHOUT THE SHIFT. NEEDS AND CONCERNS ADDRESSED. SAFETY MEASURES IN PLACED. PATIENT BED IS LOCKED AND IN LOWEST POSITION. SIDE RAILS UP. CALL LIGHT WITHIN REACH OF THE PATIENT. ISOLATION PRECAUTION MAINTAINED .WILL ENDORSE TO AM SHIFT FOR RENALDO.
[2020-02-22 06:43] LABS: BASOPHILS % (AUTO) 0.2 % (0.0-2.0); EOSINOPHILS % (AUTO) 0.6 % (0.0-6.0); HEMATOCRIT 32 % (39-51); HEMOGLOBIN 10.8 g/dL (13.5-17.5); LYMPHOCYTES # (AUTO) 1.6 /CMM (0.8-4.8); MEAN CORPUSCULAR HGB CONC 34 g/dl (31.0-36.0); MEAN CORPUSCULAR VOLUME 87 fL (80-96); MONOCYTES % (AUTO) 7.4 % (2.0-12.0); NEUTROPHILS # (AUTO) 10.5 /CMM (1.8-8.9); NEUTROPHILS % (AUTO) 79.8 % (43.0-81.0); PLATELET COUNT (AUTO) 405 /CMM (150-450); RED BLOOD CELL COUNT(AUTO) 3.68 MIL/uL (4.5-6.0); WHITE BLOOD COUNT (AUTO) 13.1 K/uL (4.3-11.0)
[2020-02-22 06:59] LABS: CALCIUM, SERUM 7.6 mg/dL (8.5-10.1); PHOSPHORUS 1.5 mg/dL (2.5-4.9); POTASSIUM 3.5 mmol/L (3.5-5.1)
--- NOTE | 2020-02-22 07:27 | NUR ---
TRAVEL SERVICES PROFESSIONAL NOTES: RECEIVED PT IN BED RESTING COMFORTABLY IN MODERATE HIGH BACK REST. A/OX1;. NO S/SX OF ACUTE DISTRESS NOTED AT THIS TIME. ON 4 L OF OXYGEN VIA NC; TOLERATING WELL. PATIENT ON TELE MONITORING READING SINUS RHYTHM HR IS @90s. NOTED IV FLUIDS ON FRANCHESCA MIDLINE #18, PATENT AND INTACT, INFUSING WELL @ 75ML/HR, NO S/S OF INFECTION OR INFILTRATION. PATIENT HAS BILATERAL SOFT WRIST RESTRAINTS IN PLACE, ASSESSED PER PROTOCOL. SAFETY MEASURES IN PLACE. PATIENT BED ALARM IS ON. BED IS LOCKED, IN LOWEST POSITION AND SIDE RAILS UP X2. CALL LIGHT WITHIN REACH OF THE PATIENT. ISOLATION PRECAUTIONS IN PLACE. WILL CONTINUE TO MONITOR.
[2020-02-22 08:00] VITALS: BP 108/52
[2020-02-22] MEDS: VANCOMYCIN 0.75 GM in IV D5W 250 ML IV SCH (08:15)
[2020-02-22] MEDS: ASPIRIN EC 81 MG TABLET.DR PO SCH (08:15)
[2020-02-22] MEDS: PANTOPRAZOLE 40 MG TABLET.DR PO SCH (08:16)
[2020-02-22] MEDS: ENSURE ENLIVE CHOC 237 ML CAN PO SCH ×3 (08:16→16:29)
[2020-02-22] MEDS: ENOXAPARIN SODIUM 40 MG/0.4 ML DISP.SYRIN SQ SCH (08:21)
[2020-02-22] MEDS: THERAHONEY GEL 1.5 OZ TUBE TP SCH (08:35)
[2020-02-22] MEDS ORDERED: Sodium Phosphate 15 MMOL in IV NS 0.9% 245 ML IV SCH (09:40)
--- NOTE | 2020-02-22 10:25 | NUR ---
RN NOTES CALLED PHARMACY REGARDING SODIUM PHOSPHATE, PER HAYLIE THEY ARE STILL WORKING ON IT. WILL F/U AND MONITOR.
[2020-02-22] MEDS: GUAIFENESIN LA 600 MG TABLET.SA PO SCH ×2 (11:36→20:16)
[2020-02-22 12:00] VITALS: BP 122/54
[2020-02-22 16:00] VITALS: BP_SYST 118; BP_SYST 128; BP_DIAS 53; BP_DIAS 63
--- NOTE | 2020-02-22 18:43 | NUR ---
MICROFICHE DUPLICATOR NOTES: PT IN BED RESTING COMFORTABLY IN MODERATE HIGH BACK REST. A/OX1;. NO S/SX OF ACUTE DISTRESS NOTED THROUGHOUT THE SHIFT. ON 4 L OF OXYGEN VIA NC; TOLERATING WELL. PATIENT ON TELE MONITORING READING SINUS RHYTHM HR IS @90s. NOTED IV FLUIDS ON FRANCHESAC MIDLINE #18, PATENT AND INTACT, INFUSING WELL @ 75ML/HR, NO S/S OF INFECTION OR INFILTRATION. PATIENT HAS BILATERAL SOFT WRIST RESTRAINTS IN PLACE, ASSESSED PER PROTOCOL. SAFETY MEASURES IN PLACE. PATIENT BED ALARM IS ON. BED IS LOCKED, IN LOWEST POSITION AND SIDE RAILS UP X2. CALL LIGHT WITHIN REACH OF THE PATIENT. ISOLATION PRECAUTIONS IN PLACE. WILL ENDORSE TO CONTRACTOR GENERAL BUILDING NURSE FOR RENALDO.
--- NOTE | 2020-02-22 19:30 | NUR ---
CRUSHER AND BLENDER OPERATOR OPENING NOTES: RECEIVED PT A/OX1; CONFUSED DOESNT RESPOND WELL TO RN. PATIENT IN BED RESTING COMFORTABLY. PATIENT IN NO S/SX OF ACUTE DISTRESS AT THIS TIME. NO SOB NOTED. PATIENT'S BREATHING IS EVEN AND UNLABORED. PATIENT IS ON 4L OF OXYGEN VIA NC; TOLERATING WELL. PATIENT ON TELE MONITORING READING SINUS TACHY HR IS @106. NOTED IV SITE ON FRANCHESCA MIDLINE #18 ; PATENT IN INTACT,NO S/S OF INFECTION OR INFILTRATION. PATIENT ON DIAPERS. PATIENT HAS BILATERAL SOFT WRIST RESTRAINTS IN PLACE, ASSESSED PER PROTOCOL. SAFETY MEASURES HAVE BEEN PROVIDED AND IMPLEMENTED. PATIENT BED ALARM IS ON. HEAD OF BED ELEVATED. BED IS LOCKED, IN LOWEST POSITION AND SIDE RAILS UP. CALL LIGHT WITHIN REACH OF THE PATIENT. ISOLATION PRECAUTIONS IN PLACE. WILL CONTINUE TO MONITOR AND REASSESS FOR ANY CHANGES.
[2020-02-22 20:00] VITALS: BP 100/52
[2020-02-23] VITALS: BP 98/45
[2020-02-23] MEDS: IV D5/ 0.9% NACL 1,000 ML IV PRN (00:24)
[2020-02-23] MEDS: PIPERACILLIN /TAZOBACTAM 3.375 G in IV D5W 50 ML IV SCH ×4 (00:54→17:03)
[2020-02-23 04:00] VITALS: BP 114/61
[2020-02-23] MEDS: VANCOMYCIN 0.75 GM in IV D5W 250 ML IV SCH (05:07)
[2020-02-23 06:58] LABS: BASOPHILS % (AUTO) 0.3 % (0.0-2.0); EOSINOPHILS % (AUTO) 0.1 % (0.0-6.0); HEMATOCRIT 28 % (39-51); HEMOGLOBIN 9.3 g/dL (13.5-17.5); LYMPHOCYTES # (AUTO) 1.4 /CMM (0.8-4.8); LYMPHOCYTES % (AUTO) 8.9 % (20.0-44.0); MEAN CORPUSCULAR HGB CONC 33 g/dl (31.0-36.0); MEAN CORPUSCULAR VOLUME 87 fL (80-96); MONOCYTES % (AUTO) 6.3 % (2.0-12.0); NEUTROPHILS # (AUTO) 13.6 /CMM (1.8-8.9); NEUTROPHILS % (AUTO) 84.4 % (43.0-81.0); PLATELET COUNT (AUTO) 334 /CMM (150-450); RED BLOOD CELL COUNT(AUTO) 3.25 MIL/uL (4.5-6.0); WHITE BLOOD COUNT (AUTO) 16.1 K/uL (4.3-11.0)
--- NOTE | 2020-02-23 07:00 | NUR ---
RN CLOSING NOTE: PATIENT REMAINS IN ROOM. NO SIGNS OF RESPIRATORY. ALL DUE MEDS GIVEN ORDERED. SAFETY MEASURES IMPLEMENTED, BED IN LOWEST POSITION, LOCKED, SIDE RAILS UP, CALL LIGHT WITHIN REACH. ISOLATION PRECAUTION MAINTAINED .ENDORSED TO ONCOMING SHIFT RN FOR CONTINUITY OF CARE.
[2020-02-23 07:08] LABS: CALCIUM, SERUM 7.2 mg/dL (8.5-10.1); POTASSIUM 3.3 mmol/L (3.5-5.1)
[2020-02-23] MEDS: ENSURE ENLIVE CHOC 237 ML CAN PO SCH ×3 (07:37→16:17)
--- NOTE | 2020-02-23 07:46 | NUR ---
telegraphic typewriter installer note patient in bed awake alert with confusion,on 4l nc, no sob noted at this time sat 98% ,on tele monitor st hr 105 , at this time , rt upper arm midline in place on ivf as ordered , rt foot with swelling noted, keep elevated as tolerated , bed in lowest and locked position, all needs attended ,call light within reach ,plan or care discussed with patent Addendum: 02/23/20 at 1459 by ANDI VAUGHAN RN [id number] LT ARM AND LT HAND IS SWOLLEN KEEP ELEVATED TOLERATED
[2020-02-23 08:00] VITALS: BP 117/62
[2020-02-23] MEDS: GUAIFENESIN LA 600 MG TABLET.SA PO SCH ×2 (08:38→20:40)
[2020-02-23] MEDS: PANTOPRAZOLE 40 MG TABLET.DR PO SCH (08:38)
[2020-02-23] MEDS: ASPIRIN EC 81 MG TABLET.DR PO SCH (08:39)
[2020-02-23] MEDS: ENOXAPARIN SODIUM 40 MG/0.4 ML DISP.SYRIN SQ SCH (08:40)
[2020-02-23] MEDS: THERAHONEY GEL 1.5 OZ TUBE TP SCH (08:41)
[2020-02-23] MEDS ORDERED: POTASSIUM CHLORIDE 20 MEQ TAB.PRT.SR PO SCH (10:30)
[2020-02-23 12:00] VITALS: BP 114/42
--- NOTE | 2020-02-23 12:53 | NUR ---
ARC FURNACE OPERATOR NOTE KEEP CLEAN DRY REPOSITION REFUSED TO HAVE LUNCH ,OFFERED X3 STILL REFUSING
--- NOTE | 2020-02-23 15:00 | NUR ---
CERTIFIED CONTROL SYSTEMS TECHNICIAN NOTE UNABLE TO REMOVE SOFT RESTRAIN, STILL AT RISK TO REMOVE ALL LINES
[2020-02-23 16:00] VITALS: BP 96/42
--- NOTE | 2020-02-23 16:59 | NUR ---
SUPERVISOR CLAM BED NOTE LT RM AND LT HAND IS SWOLLEN ,DR CHAO SALAS NOTIFIED WITH ORDER DOPPLER STUDLY, WILL F\U
--- NOTE | 2020-02-23 18:40 | NUR ---
CLINICAL COURIER NOTE KEEP CLEAN DRY , ALL NEEDS ATTENDED, NOT IN DISTRESS AT THIS TIME
--- NOTE | 2020-02-23 19:25 | NUR ---
PROMOTIONS EXECUTIVE OPENING NOTES PATIENT SLEEPING IN BED, EASY TO AWAKEN. A/OX2. ON 4L NC. NO S/S OF ACUTE RESPIRATORY DISTRESS; BREATHING IS EVEN AND UNLABORED. NO S/S OF PAIN AT THIS TIME. TELE MONITOR READING NSR, HEART RATE 82. DROPLET/CONTACT PRECAUTIONS IN PLACE FOR POSITIVE COVID 19. BILATERAL SOFT WRIST RESTRAINTS CURRENTLY PRESENT; SKIN CIRCULATION WNL. MIDLINE PRESENT ON RIGHT UPPER ARM, INTACT & PATENT, HEP LOCKED. SAFETY MEASURES IN PLACE AND PATIENT'S NEEDS MET. BED LOCKED, ALARM ON, HOB ELEVATED, SIDE RAILS X3, CALL LIGHT WITHIN REACH. WILL CONTINUE TO MONITOR.
[2020-02-23 20:00] VITALS: BP 96/47
[2020-02-24] VITALS (7 sets, daily range): BP systolic 94–141; BP diastolic 49–66
[2020-02-24] MEDS: PIPERACILLIN /TAZOBACTAM 3.375 G in IV D5W 50 ML IV SCH ×5 (00:15→23:00)
[2020-02-24 05:35] LABS: APPEARANCE,URINE CLOUDY (CLEAR); BILIRUBIN,URINE NEGATIVE (NEGATIVE); BLOOD, URINE NEGATIVE Ery/uL (NEGATIVE); COLOR,URINE YELLOW (YELLOW); KETONES,URINE NEGATIVE (NEGATIVE); LEUKOCYTE ESTERASE ,URINE TRACE (NEGATIVE); NITRITE, URINE NEGATIVE (NEGATIVE); PROTEIN,URINE NEGATIVE (NEGATIVE); UGLUCOSE NEGATIVE (NEGATIVE)
[2020-02-24 05:45] LABS: BACTERIA,URINE Few /HPF (None Seen); RBC,URINE 0-2 /HPF (0-2); SQUAMOUS EPITHELIAL CELL,UR Rare /HPF (None Seen); URINE AMORPHOUS URATE Many /HPF (None Seen)
[2020-02-24] MEDS: VANCOMYCIN 0.75 GM in IV D5W 250 ML IV SCH (06:35)
[2020-02-24 06:37] LABS: BASOPHILS % (AUTO) 0.5 % (0.0-2.0); EOSINOPHILS % (AUTO) 0.6 % (0.0-6.0); HEMATOCRIT 27 % (39-51); HEMOGLOBIN 9.1 g/dL (13.5-17.5); LYMPHOCYTES # (AUTO) 1.2 /CMM (0.8-4.8); LYMPHOCYTES % (AUTO) 12.7 % (20.0-44.0); MEAN CORPUSCULAR HGB CONC 34 g/dl (31.0-36.0); MEAN CORPUSCULAR VOLUME 88 fL (80-96); MONOCYTES # (AUTO) 0.8 /CMM (0.1-1.30); MONOCYTES % (AUTO) 8.5 % (2.0-12.0); NEUTROPHILS # (AUTO) 7.4 /CMM (1.8-8.9); NEUTROPHILS % (AUTO) 77.7 % (43.0-81.0); PLATELET COUNT (AUTO) 333 /CMM (150-450); RED BLOOD CELL COUNT(AUTO) 3.06 MIL/uL (4.5-6.0); WHITE BLOOD COUNT (AUTO) 9.6 K/uL (4.3-11.0)
--- NOTE | 2020-02-24 06:49 | NUR ---
HOIST WORKER CLOSING NOTES PATIENT SLEEPING IN BED, EASY TO AWAKEN. A/OX1-2. ON 4L NC. NO S/S OF ACUTE RESPIRATORY DISTRESS; BREATHING IS EVEN AND UNLABORED; SPO2 100%. NO S/S OF PAIN AT THIS TIME. TELE MONITOR READING NSR, HEART RATE 90. BILATERAL SOFT WRIST RESTRAINTS CURRENTLY OFF; PATIENT IS CALM AND COOPERATIVE. MIDLINE ON RIGHT UPPER ARM REMAINS INTACT & PATENT WITH IVPB VANCO RUNNING AT 250ML/HR. SAFETY MEASURES IN PLACE AND PATIENT'S NEEDS MET. BED LOCKED, ALARM ON, HOB ELEVATED, SIDE RAILS X3, CALL LIGHT WITHIN REACH. WILL ENDORSE TO DAY SHIFT NURSE PLAN OF CARE.
[2020-02-24 06:54] LABS: CREATININE 1.2 mg/dL (0.6-1.3); MAGNESIUM 1.7 mg/dL (1.8-2.4); PHOSPHORUS 2.8 mg/dL (2.5-4.9); POTASSIUM 3.4 mmol/L (3.5-5.1)
[2020-02-24] MEDS: PANTOPRAZOLE 40 MG TABLET.DR PO SCH ×2 (07:30→08:51)
[2020-02-24] MEDS: GUAIFENESIN LA 600 MG TABLET.SA PO SCH ×2 (08:51→21:38)
[2020-02-24] MEDS: ASPIRIN EC 81 MG TABLET.DR PO SCH ×2 (08:51→09:00)
[2020-02-24] MEDS: ENOXAPARIN SODIUM 40 MG/0.4 ML DISP.SYRIN SQ SCH (08:53)
[2020-02-24] MEDS: ENSURE ENLIVE CHOC 237 ML CAN PO SCH ×3 (08:59→17:00)
[2020-02-24] MEDS ORDERED: POTASSIUM CHLORIDE 20 MEQ TAB.PRT.SR PO SCH (09:00)
[2020-02-24] MEDS: THERAHONEY GEL 1.5 OZ TUBE TP SCH (09:00)
[2020-02-24] MEDS: Magnesium 1GM/D5W 100ML PREMIX 100 ML IV SCH ×2 (09:00→10:08)
--- NOTE | 2020-02-24 09:30 | NUR ---
the patient is refusing to take some of the medications. It was mentioned to Dr Horner.
--- NOTE | 2020-02-24 12:14 | NUR ---
the patient continues to refuse to take any po medication, including meals. The charge nurse will communicate the issue with Dr. Barbi Martel...
--- NOTE | 2020-02-24 19:45 | NUR ---
BOX TOE FLANGER STITCHDOWNS NOTES PATIENT IN BED, RESTING, ALERT AND ORIENTED X 1. BREATHING EVEN AND UNLABORED ON 4L. SHOWS NO SIGNS OF ACUTE RESPIRATORY DISTRESS, NO ACUTE PAIN. TELE MONITOR SR 60'S. IBV ON FRANCHESCA MIDLINE. SHOW NO SIGNS OF INFILTRATION, NO REDNESS. SAFETY PRECAUTIONS IN PLACE. BED IN LOWEST POSITION, LOCKED, AND CALL LIGHT KEPT WITH IN REACH. WILL CONTINUE TO MONITOR.
[2020-02-25] VITALS (7 sets, daily range): BP systolic 95–137; BP diastolic 63–83
[2020-02-25] MEDS: PIPERACILLIN /TAZOBACTAM 3.375 G in IV D5W 50 ML IV SCH ×3 (05:13→17:05)
--- NOTE | 2020-02-25 06:44 | NUR ---
ELL TEACHER NOTES PATIENT IN BED, RESTING, ALERT AND ORIENTED X 1. BREATHING EVEN AND UNLABORED ON 4L. SHOWS NO SIGNS OF ACUTE RESPIRATORY DISTRESS, NO ACUTE PAIN. TELE MONITOR SR-SB 60'S. IV ON FRANCHESCA MIDLINE. SHOWS NO SIGNS OF INFILTRATION, NO REDNESS. ALL IV MEDICATIONS GIVEN. PT REFUSED PO MED. RELEASED FROM BILATERAL WRIST RESTRAINTS THROUGHOUT NIGHT. SAFETY PRECAUTIONS IN PLACE. BED IN LOWEST POSITION, LOCKED, AND CALL LIGHT KEPT WITH IN REACH. WILL ENDORSE TO ONCOMING NURSE.
[2020-02-25 06:52] LABS: BASOPHILS % (AUTO) 0.6 % (0.0-2.0); EOSINOPHILS % (AUTO) 0.7 % (0.0-6.0); HEMATOCRIT 25 % (39-51); HEMOGLOBIN 8.6 g/dL (13.5-17.5); LYMPHOCYTES # (AUTO) 1.1 /CMM (0.8-4.8); LYMPHOCYTES % (AUTO) 13.7 % (20.0-44.0); MEAN CORPUSCULAR HGB CONC 34 g/dl (31.0-36.0); MEAN CORPUSCULAR VOLUME 87 fL (80-96); MONOCYTES # (AUTO) 0.6 /CMM (0.1-1.30); MONOCYTES % (AUTO) 7.1 % (2.0-12.0); NEUTROPHILS # (AUTO) 6.2 /CMM (1.8-8.9); NEUTROPHILS % (AUTO) 77.9 % (43.0-81.0); PLATELET COUNT (AUTO) 343 /CMM (150-450); RED BLOOD CELL COUNT(AUTO) 2.89 MIL/uL (4.5-6.0); WHITE BLOOD COUNT (AUTO) 7.9 K/uL (4.3-11.0)
[2020-02-25 06:56] LABS: CREATININE 1.1 mg/dL (0.6-1.3); MAGNESIUM 2.1 mg/dL (1.8-2.4); PHOSPHORUS 2.6 mg/dL (2.5-4.9); POTASSIUM 3.3 mmol/L (3.5-5.1)
--- NOTE | 2020-02-25 07:23 | NUR ---
MINH CLAMP REMOVER NOTES CALLED PHARMACY IN REGARDS TO VANCO TROPH IT IS K TO GIVE THE 6 AM VANCO
--- NOTE | 2020-02-25 08:00 | NUR ---
MINH OTHER SALES SUPPORT WORKER NOTES RECEIVED PT IN BED. ALERT AND ORIENTED X1. LOOK VERY SAD. PT ON RA ON 4L OXYGEN . PT IS AFIB HR 73. RIGHT MIDLINE ARE FLUSHED WELL AND INTACT. IN COVID DROPLET ISOLATION. SAFETY MEASURES ARE IMPLEMENTED. BED IN LOWEST POSITION. SIDE RAILS ARE UP X2..CALL LIGHT WITHIN REACH.WILL CONTINUE TO MONITOR.
[2020-02-25] MEDS: VANCOMYCIN 0.75 GM in IV D5W 250 ML IV SCH (08:13)
[2020-02-25] MEDS: ASPIRIN EC 81 MG TABLET.DR PO SCH (08:15)
[2020-02-25] MEDS: ENOXAPARIN SODIUM 40 MG/0.4 ML DISP.SYRIN SQ SCH (08:15)
[2020-02-25] MEDS: PANTOPRAZOLE 40 MG TABLET.DR PO SCH (08:15)
[2020-02-25] MEDS: GUAIFENESIN LA 600 MG TABLET.SA PO SCH ×2 (08:15→20:37)
[2020-02-25] MEDS: THERAHONEY GEL 1.5 OZ TUBE TP SCH (08:16)
[2020-02-25] MEDS: ENSURE ENLIVE CHOC 237 ML CAN PO SCH ×3 (08:17→17:04)
--- NOTE | 2020-02-25 09:41 | NUR ---
MINH LASER ENGINEER NOTES CALLED PHARMACY TO CHANGED THE PILL POTASSIUM TO POWDER DUE TO UNABLE TO SWALLOW
[2020-02-25] MEDS ORDERED: POTASSIUM CHLORIDE 20 MEQ POWDER PACKET PO SCH (10:00)
[2020-02-25] MEDS ORDERED: POTASSIUM CHLORIDE 20 MEQ TAB.PRT.SR PO SCH (10:00)
--- NOTE | 2020-02-25 10:36 | NUR ---
MINH ANGEL RN NOTES PT DRANK ENSURE THE WHOLE BOTTLE AND A HALF THIS MORNING . HAD APPLE SAUCE WITH HIS MEDS. HAD CRUSHED ICE.
--- NOTE | 2020-02-25 15:59 | NUR ---
TELE MINH RN NOTES TALKED TO WOOD FILLER LET THEM KNOW THAT HE DRANK ENSURE IN THE MORNING. PT ALSO DRANK ANOTHER BOTTLE OF ENSURE AND MILK.
--- NOTE | 2020-02-25 19:07 | NUR ---
MINH TELEMETRY CLOSING RN NOTES PATIENT IS RESTING. WILL BE TRANSFER TOMORROW TO SNF. PT IS ON NC 4 L. PT SR HR 88. FRANCHESCA MIDLINE IS FLUSHED AND INTACT. BED IS IN LOWER POSITION. CALL LIGHT WITHIN REACH. SAFETY MEASURED ARE IMPLEMENTED. PT IS COVID PENDING. RAILS ARE X2. WILL ENDORSED TO NIGHTSFITS TO [facility].
--- NOTE | 2020-02-25 19:12 | NUR ---
MINH TELEMETRY CLOSING RN NOTES PATIENT IS RESTING. . PT IS ON NC 3 L. PT SR HR 88. FRANCHESCA MIDLINE IS FLUSHED AND INTACT. BED IS IN LOWER POSITION. CALL LIGHT WITHIN REACH. SAFETY MEASURED ARE IMPLEMENTED. PT IS COVID TESTED AND HANDED TO LAB BY RN.. RAILS ARE X2. WILL ENDORSED TO NIGHTSFITS TO [facility].
--- NOTE | 2020-02-25 19:19 | NUR ---
RN OPENING NOTE RECEIVED PATIENT AWAKE IN BED. ON O2 VIA NC AT 3 L/MIN O2 SAT AT 99 %. PT CURRENTLY SR ON TELE MONITOR. FRANCHESCA MIDLINE IS PATENT AND INTACT FLUSHING WELL. BED LOCKED AND IN LOWEST POSITION. CALL LIGHT WITHIN REACH. SAFETY MEASURES IN PLACE. SIDE RAILS UP X 3 WILL CONTINUE TO MONITOR PT
[2020-02-26] VITALS (7 sets, daily range): BP systolic 95–141; BP diastolic 50–66
[2020-02-26] MEDS: PIPERACILLIN /TAZOBACTAM 3.375 G in IV D5W 50 ML IV SCH ×4 (00:07→17:11)
[2020-02-26] MEDS: VANCOMYCIN 0.75 GM in IV D5W 250 ML IV SCH (05:50)
[2020-02-26 07:02] LABS: CALCIUM, SERUM 7.9 mg/dL (8.5-10.1); CREATININE 1.1 mg/dL (0.6-1.3); MAGNESIUM 1.7 mg/dL (1.8-2.4); PHOSPHORUS 2.3 mg/dL (2.5-4.9); POTASSIUM 3.8 mmol/L (3.5-5.1)
--- NOTE | 2020-02-26 07:30 | NUR ---
RN OPENING NOTES: RECEIVED PT AT BED, RESTING CALM, A&O X 1. PATIENT ON ISOLATION FOR POSITIVE COVID ; REPEATING TEST IS PENDING. ON 3L OXYGEN WITH NC TOLERATING WELL. NO SOB, NO DISTRESS NOTED. PATIENT IS IN SOFT WRIST RESTRAINTS,REMOVED RESTRAINTS FOR ASSESSMENT , SKIN INTACT NO BRUISING, NO REDNESS NOTED; CHECKING REGULARLY. FRANCHESCA MIDLINE PATENT AND FLUSHING, G 18. TKO NS SOLUTION IS RUNNING @5ML/HR. MULTIPLE DRESSINGS IN PLACE NOTED- ON R HEEL AND ON SACRUM (MEPILEX)BOTH ARE INTACT AND CLEAN. SAFETY MEASURES IN PLACE. CALL LIGHT IN REACH, BED IN LOWEST POSITION, SIDE RAILS X 2 UP APPROPRIATE, NO S/S OF DISTRESS NOTED, NEEDS ATTENDED. WILL CONTINUE TO MONITOR.
[2020-02-26 07:58] LABS: BASOPHILS # (AUTO) 0.1 /CMM (0.0-0.2); BASOPHILS % (AUTO) 0.8 % (0.0-2.0); EOSINOPHILS % (AUTO) 0.9 % (0.0-6.0); HEMATOCRIT 30 % (39-51); HEMOGLOBIN 10.1 g/dL (13.5-17.5); LYMPHOCYTES # (AUTO) 1.2 /CMM (0.8-4.8); LYMPHOCYTES % (AUTO) 18.6 % (20.0-44.0); MEAN CORPUSCULAR HGB CONC 34 g/dl (31.0-36.0); MEAN CORPUSCULAR VOLUME 87 fL (80-96); MONOCYTES # (AUTO) 0.6 /CMM (0.1-1.30); MONOCYTES % (AUTO) 8.7 % (2.0-12.0); NEUTROPHILS # (AUTO) 4.5 /CMM (1.8-8.9); PLATELET COUNT (AUTO) 367 /CMM (150-450); RED BLOOD CELL COUNT(AUTO) 3.43 MIL/uL (4.5-6.0); WHITE BLOOD COUNT (AUTO) 6.4 K/uL (4.3-11.0)
[2020-02-26] MEDS: GUAIFENESIN LA 600 MG TABLET.SA PO SCH ×2 (08:10→20:50)
[2020-02-26] MEDS: ASPIRIN EC 81 MG TABLET.DR PO SCH (08:10)
[2020-02-26] MEDS: ENOXAPARIN SODIUM 40 MG/0.4 ML DISP.SYRIN SQ SCH ×2 (08:10→09:00)
[2020-02-26] MEDS: PANTOPRAZOLE 40 MG TABLET.DR PO SCH (08:10)
[2020-02-26] MEDS: ENSURE ENLIVE CHOC 237 ML CAN PO SCH ×3 (08:17→16:20)
[2020-02-26] MEDS: THERAHONEY GEL 1.5 OZ TUBE TP SCH (08:23)
[2020-02-26] MEDS: MAGNESIUM OXIDE 400 MG TABLET PO SCH ×3 (09:00→16:20)
[2020-02-26] MEDS: NEUTRA PHOS 1 POWD.PACKET PO SCH ×4 (09:00→16:20)
[2020-02-26] MEDS ORDERED: K PHOS NEUTRAL 250 MG TABLET PO ONE (14:00)
--- NOTE | 2020-02-26 18:56 | NUR ---
RN CLOSING NOTES: PT AT BED, RESTING CALM, A&O X 1. PATIENT ON ISOLATION FOR POSITIVE COVID ; REPEATING TEST IS PENDING. ON 3L OXYGEN WITH NC TOLERATING WELL. NO SOB, NO DISTRESS NOTED. PATIENT IS IN SOFT WRIST RESTRAINTS,REMOVED RESTRAINTS FOR ASSESSMENT , SKIN INTACT NO BRUISING, NO REDNESS NOTED; CHECKING REGULARLY. FRANCHESCA MIDLINE PATENT AND FLUSHING, G 18. TKO NS SOLUTION IS RUNNING @5ML/HR. SAFETY MEASURES IN PLACE. CALL LIGHT IN REACH, BED IN LOWEST POSITION, SIDE RAILS X 2 UP APPROPRIATE, NO S/S OF DISTRESS NOTED, ALL MEDS ARE GIVEN IN SAFETY DIRECTION, NEEDS ATTENDED.
--- NOTE | 2020-02-26 19:30 | NUR ---
GOLF BALL MOLDER OPENING NOTES: RECEIVED PT A/OX1; CONFUSED IN BED RESTING COMFORTABLY. PATIENT IN NO S/SX OF ACUTE DISTRESS AT THIS TIME. NO SOB NOTED. PATIENT'S BREATHING IS EVEN AND UNLABORED.PATIENT IS ON 3 L OF OXYGEN VIA NC; TOLERATING WELL. PATIENT ON TELE MONITORING READING SINUS RHYTHM HR IS @60s. NOTED IV SITE ON FRANCHESCA MIDLINE #18; PATENT IN INTACT,NO S/S OF INFECTION OR INFILTRATION. PT ON DIAPERS. BILATERAL SOFT WRIST RESTRAINTS IN PLACE, ASSESSED PER PROTOCOL. SAFETY MEASURES HAVE BEEN PROVIDED AND IMPLEMENTED. PATIENT BED ALARM IS ON. HEAD OF BED ELEVATED. BED IS LOCKED, IN LOWEST POSITION AND SIDE RAILS UP. CALL LIGHT WITHIN REACH OF THE PATIENT. ISOLATION PRECAUTIONS IN PLACE. WILL CONTINUE TO MONITOR AND REASSESS FOR ANY CHANGES.
[2020-02-27] VITALS: BP 125/59
[2020-02-27 04:00] VITALS: BP 121/53
[2020-02-27] MEDS: PIPERACILLIN /TAZOBACTAM 3.375 G in IV D5W 50 ML IV SCH ×5 (05:25→17:31)
--- NOTE | 2020-02-27 06:41 | NUR ---
RN NOTES NOREEN BAKER FROM LAB CALLED FOR COVID RESULT NEGATIVE. THIS IS #3 COVID TEST; WILL ENDORSE TO AM SHIFT TO NOTIFY MD SINCE THE FIRST 2 RESULTS ARE POSITIVE. PRIMARY RN LYN MADE AWARE
--- NOTE | 2020-02-27 06:55 | NUR ---
RN CLOSING NOTE: PATIENT REMAINS IN ROOM. NO SIGNS OF RESPIRATORY. SAFETY MEASURES IMPLEMENTED, BED IN LOWEST POSITION, LOCKED, SIDE RAILS UP, CALL LIGHT WITHIN REACH. ENDORSED TO ONCOMING SHIFT RN FOR CONTINUITY OF CARE.
[2020-02-27 08:00] VITALS: BP 140/86
[2020-02-27] MEDS: PANTOPRAZOLE 40 MG TABLET.DR PO SCH (08:45)
[2020-02-27] MEDS: ENSURE ENLIVE CHOC 237 ML CAN PO SCH ×3 (08:46→17:28)
[2020-02-27] MEDS: GUAIFENESIN LA 600 MG TABLET.SA PO SCH ×2 (08:51→21:38)
[2020-02-27] MEDS: ASPIRIN EC 81 MG TABLET.DR PO SCH (08:51)
[2020-02-27] MEDS: MAGNESIUM OXIDE 400 MG TABLET PO SCH ×2 (08:52→17:28)
[2020-02-27] MEDS: ENOXAPARIN SODIUM 40 MG/0.4 ML DISP.SYRIN SQ SCH (08:52)
[2020-02-27] MEDS: THERAHONEY GEL 1.5 OZ TUBE TP SCH (08:53)
[2020-02-27 12:00] VITALS: BP 133/76
[2020-02-27 16:00] VITALS: BP 128/82
[2020-02-27 20:00] VITALS: BP 113/53
[2020-02-28] VITALS: BP 128/48
[2020-02-28] MEDS: PIPERACILLIN /TAZOBACTAM 3.375 G in IV D5W 50 ML IV SCH ×4 (00:49→17:45)
[2020-02-28 04:00] VITALS: BP 120/53
--- NOTE | 2020-02-28 07:20 | NUR ---
RN opening note: Received patient in bed. Awake, alert and oriented to self. On bilateral soft wrist restraints for behavior noted. Tele monitor showing Call light in reach. Bed locked, low and at semi-khalil's position. 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 Isolation precaution for COVID-[address] Patient on cont. 02 via NC @ 3lpm. NO SOB noted and not in respiratory distress. Patient with no reports of pain and none noted. IV site clean, dry, patent and intact. Call light in reach. Bed locked, low and at semi-khalil's position. Side rails upx3. Safety ensured and observed. Will continue to monitor.
[2020-02-28 07:23] LABS: BASOPHILS # (AUTO) 0.2 /CMM (0.0-0.2); BASOPHILS % (AUTO) 2.8 % (0.0-2.0); EOSINOPHILS % (AUTO) 1.5 % (0.0-6.0); HEMATOCRIT 29 % (39-51); HEMOGLOBIN 9.8 g/dL (13.5-17.5); LYMPHOCYTES # (AUTO) 1.8 /CMM (0.8-4.8); LYMPHOCYTES % (AUTO) 20.4 % (20.0-44.0); MEAN CORPUSCULAR HGB CONC 34 g/dl (31.0-36.0); MEAN CORPUSCULAR VOLUME 89 fL (80-96); MONOCYTES # (AUTO) 0.8 /CMM (0.1-1.30); NEUTROPHILS # (AUTO) 5.8 /CMM (1.8-8.9); NEUTROPHILS % (AUTO) 66.3 % (43.0-81.0); PLATELET COUNT (AUTO) 381 /CMM (150-450); RED BLOOD CELL COUNT(AUTO) 3.28 MIL/uL (4.5-6.0); WHITE BLOOD COUNT (AUTO) 8.7 K/uL (4.3-11.0)
[2020-02-28 08:00] VITALS: BP_SYST 111; BP_DIAS 48; BP_DIAS 58
[2020-02-28 08:15] LABS: ALBUMIN 1.9 g/dL (3.4-5.0); BILIRUBIN,TOTAL 0.5 mg/dL (0.2-1.0); CALCIUM, SERUM 8.2 mg/dL (8.5-10.1); CREATININE 1.1 mg/dL (0.6-1.3); MAGNESIUM 1.8 mg/dL (1.8-2.4); POTASSIUM 3.7 mmol/L (3.5-5.1)
[2020-02-28] MEDS: PANTOPRAZOLE 40 MG TABLET.DR PO SCH (08:17)
[2020-02-28] MEDS: ASPIRIN EC 81 MG TABLET.DR PO SCH (08:17)
[2020-02-28] MEDS: GUAIFENESIN LA 600 MG TABLET.SA PO SCH ×2 (08:18→20:09)
[2020-02-28] MEDS: ENOXAPARIN SODIUM 40 MG/0.4 ML DISP.SYRIN SQ SCH (08:20)
[2020-02-28] MEDS: THERAHONEY GEL 1.5 OZ TUBE TP SCH (08:27)
[2020-02-28] MEDS: ENSURE ENLIVE CHOC 237 ML CAN PO SCH ×3 (08:28→17:45)
[2020-02-28 12:00] VITALS: BP 126/54
[2020-02-28 16:00] VITALS: BP_SYST 84; BP_SYST 87; BP_DIAS 38; BP_DIAS 39
[2020-02-28] MEDS ORDERED: IV NS 0.9% 1,000 ML IV PRN (16:30)
[2020-02-28] MEDS ORDERED: IV NS 0.9% 500 ML IV ONE (16:30)
--- NOTE | 2020-02-28 16:30 | NUR ---
rn note: informed Segundo Bryant DNP about patient's current blood pressure. Orders for NS 500ml bolus then NS @ 80mls/hr given. Noted and carried out. Will continue to monitor patient's blood pressure
--- NOTE | 2020-02-28 18:26 | NUR ---
rn note: rechecked patient's BP with 101/57 as the latest value
--- NOTE | 2020-02-28 19:35 | NUR ---
RN closing note: Patient remains in bed. Awake, alert and oriented to self. On bilateral soft wrist restraints for behavior noted. Tele monitor showing Call light in reach. Bed locked, low and at semi-khalil's position. Tele monitor showing sinus rhythm to sinus tachycardia with BBB noted. Isolation precaution for COVID-[address] Patient on room air with saturation >92% with noted refusal of cont. 02 via NC @ 3lpm and Segundo Bryant DNP informed. NO SOB noted and not in respiratory distress. Patient appears relaxed and comfortable. IV site clean, dry, patent and intact with infusion of NS running as ordered. Bed locked, low and at semi-khalil's position. Side rails upx3. Safety ensured and observed. Due medications given. Treatment given as ordered. Endorsed to oncoming shift for RENALDO.
--- NOTE | 2020-02-28 19:35 | NUR ---
DOCK CLERK OPENING NOTES, RECEIVED PATIENT IN BED AWAKE, A/OX1; CONFUSED, ON RA REFUSED NS DURING DAY SHIFT AND NOW, TOLERATING WELL NO S/S OF SOB OR ACUTE DISTRESSED NOTED AT THIS TIME. PATIENT'S BREATHING IS EVEN AND UNLABORED. SINUS RHYTHM HR IS @60s. IV SITE ON FRANCHESCA MIDLINE #18; PATENT IN INTACT, NO S/S OF INFILTRATION NOTED. PATIENT ON DIAPERS. BILATERAL SOFT WRIST RESTRAINTS IN PLACE, ASSESSED PER PROTOCOL. SAFETY MEASURES HAVE BEEN PROVIDED AND IMPLEMENTED. PATIENT BED ALARM IS ON. HEAD OF BED ELEVATED. BED IS LOCKED, IN LOWEST POSITION AND SIDE RAILS UP. CALL LIGHT WITHIN REACH. ISOLATION PRECAUTIONS IN PLACE. WILL CONTINUE TO MONITOR THE PATIENT.
[2020-02-28 20:00] VITALS: BP 115/53
[2020-02-29] VITALS: BP 109/59
[2020-02-29] MEDS: PIPERACILLIN /TAZOBACTAM 3.375 G in IV D5W 50 ML IV SCH ×4 (00:53→17:38)
[2020-02-29 04:00] VITALS: BP 105/51
--- NOTE | 2020-02-29 06:59 | NUR ---
COPYRIGHT EXPERT CLOSING NOTES, PATIENT IN BED AWAKE, A/OX1; CONFUSED, ON RA, REFUSED NS DURING BUSINESS PROCESS SPECIALIST, TOLERATING WELL NO S/S OF SOB OR ACUTE DISTRESSED NOTED AT THIS TIME. PATIENT'S BREATHING IS EVEN AND UNLABORED. SR/ST WITH BBB, HR IN 90S. IV SITE ON FRANCHESCA MIDLINE #18; PATENT IN INTACT, NO S/S OF INFILTRATION NOTED. PATIENT ON DIAPERS. BILATERAL SOFT WRIST RESTRAINTS IN PLACE, ASSESSED PER PROTOCOL. SAFETY MEASURES HAVE BEEN PROVIDED AND IMPLEMENTED. PATIENT BED ALARM IS ON. HEAD OF BED ELEVATED. BED IS LOCKED, IN LOWEST POSITION AND SIDE RAILS UP. CALL LIGHT WITHIN REACH. ISOLATION PRECAUTIONS IN PLACE. WILL ENDORSE THE PATIENT TO AM RN FOR RENALDO.
--- NOTE | 2020-02-29 07:00 | NUR ---
RN TELE1 OPENING NOTES. A/OX 1 ABLE T ANSWER YES NO QUESTION PATIENT WAKE . ON LAMBSKIN TRIMMER SR 80'S NO PAIN, NO SOB, NO ACUTE RESPIRATORY DISTRESS. PATIENT ON ROOM AIR SATING @ < 92 %. PATIENT DIAPER. FRANCHESCA MIDLINE NS @ 80 ML/ HR PATIENT NO SIGNS OF INFILTRATION OR REDNESS. BED LOCKED LOWEST POSITION CALL LIGHT WITH IN REACH ALL SAFETY MEASURE IMPLEMENTED PER HOSPITAL POLICY
[2020-02-29 08:00] VITALS: BP 111/32
[2020-02-29] MEDS: ENSURE ENLIVE CHOC 237 ML CAN PO SCH ×3 (10:28→17:38)
[2020-02-29] MEDS: PANTOPRAZOLE 40 MG TABLET.DR PO SCH (10:28)
[2020-02-29] MEDS: GUAIFENESIN LA 600 MG TABLET.SA PO SCH (10:28)
[2020-02-29] MEDS: ASPIRIN EC 81 MG TABLET.DR PO SCH (10:28)
[2020-02-29] MEDS: THERAHONEY GEL 1.5 OZ TUBE TP SCH (10:28)
[2020-02-29] MEDS: ENOXAPARIN SODIUM 40 MG/0.4 ML DISP.SYRIN SQ SCH (10:35)
[2020-02-29 12:00] VITALS: BP 96/51
[2020-02-29] MEDS ORDERED: PIPE3.379 IV (14:09)
[2020-02-29] MEDS ORDERED: COLL30OI TP (14:09)
[2020-02-29] MEDS ORDERED: ASPI-1152 PO (14:09)
[2020-02-29 16:00] VITALS: BP 137/64
--- NOTE | 2020-02-29 18:10 | NUR ---
CLAIMS REPRESENTATIVE- CLOSING DISCHARGE PAPER SIGNED, COMPLETE, REPORT GIVEN TO DANNY MCHUGH AT 4 SEASON. PATIENT STABLE AT THIS TIME, NO CHANGE IN CONDITION, PATIENT VITALS STABLE. BED LOCKED LOWEST POSITION CALL LIGHT WITH IN REACH ALL SAFETY MEASURE IMPLENENTED PER HOSPITAL POLICY. PATIENT WOUND DRESSING CHANGED, AM SHIFT BED BATH COMPLETED , ALL NEEDS MET. PATIENT TURN Q2H
== END 2020-02-29 19:04 | DRG 871 ==
LOC: ER 21:58 → TELE1 02-11 00:50 → TELE-TD 02-11 01:29 → TELE1 02-11 17:30
PROVIDERS: ADMIT Student in an Organized Health Care Education/Training Program; ATTEND Nurse Practitioner Acute Care
PROC: 05HY33Z Insertion of Infusion Device into Upper Vein, Percutaneous Approach (ICD-10-PCS; principal; 2020-02-13)
DX: A41.89 Other specified sepsis (principal); L89.613 Pressure ulcer of right heel, stage 3; U07.1 COVID-19; G92 Toxic encephalopathy; J96.01 Acute respiratory failure with hypoxia; J12.89 Other viral pneumonia; N17.0 Acute kidney failure with tubular necrosis; E43 Unspecified severe protein-calorie malnutrition; I21.A1 Myocardial infarction type 2; N39.0 Urinary tract infection, site not specified; D68.59 Other primary thrombophilia; J90 Pleural effusion, not elsewhere classified; J98.11 Atelectasis; J44.1 Chronic obstructive pulmonary disease with (acute) exacerbation; J44.0 Chronic obstructive pulmonary disease with (acute) lower respiratory infection; L97.419 Non-pressure chronic ulcer of right heel and midfoot with unspecified severity; I69.351 Hemiplegia and hemiparesis following cerebral infarction affecting right dominant side; E87.2 Acidosis; E87.0 Hyperosmolality and hypernatremia; E78.5 Hyperlipidemia, unspecified; G62.9 Polyneuropathy, unspecified; R91.8 Other nonspecific abnormal finding of lung field; R65.20 Severe sepsis without septic shock; R13.10 Dysphagia, unspecified; M19.90 Unspecified osteoarthritis, unspecified site; F03.90 Unspecified dementia, unspecified severity, without behavioral disturbance, psychotic disturbance, mood disturbance, and anxiety; I70.0 Atherosclerosis of aorta; I73.9 Peripheral vascular disease, unspecified; Y95 Nosocomial condition; Z74.01 Bed confinement status; E83.42 Hypomagnesemia; E86.0 Dehydration; E87.6 Hypokalemia; E83.39 Other disorders of phosphorus metabolism; D63.8 Anemia in other chronic diseases classified elsewhere; Z74.09 Other reduced mobility; L89.890 Pressure ulcer of other site, unstageable
CPT/HCPCS: 36410; 36415; 36600; 70450-TC; 71045-TC; 80048-TC; 80053-TC; 80061-TC; 80076-TC; 80202-TC; 81000-TC; 82550-TC; 82553; 82728-TC; 82803-TC; 82962-TC; 83605-TC; 83615-TC; 83735-TC; 83880; 83970; 84100-TC; 84155; 84165; 84443-TC; 84484-TC; 85025-TC; 85378-TC; 85610-TC; 85730-TC; 86140-TC; 86480; 87040-TC; 87081-TC; 87086-TC; 87186-TC; 92526; 92611-TC; 93307-TC; 94760-TC; 97530-TC; 97535-TC; A4349; A6253; A6403; A9563; G0378; J0456; J0696; J1650; J2543; J2930; J3370; J3475; J3490; J7030; J7040; J7042; J7050; J7060; J7070; U0003-CS

== ENCOUNTER 2020-04-05 07:48 | Inpatient (IN) | payer MEDICARE, OTHER ==
[~2020-04-05] VITALS: Ht 170.2 cm; Wt 73.9 kg
[2020-04-05] VITALS (45 sets, daily range): BP systolic 67–148; BP diastolic 46–77
[~2020-04-05 07:48] MED LIST: ACET-2605 GT; ACET-868 GT; APIX5TAB GT; ASCO-352 GT; ASPI-1152 PO; ATOR40TA GT; BACL10TA GT; BISA10SU11 RC; COLL30OI TP; DOCU-141 GT; GABA-532 GT; HYDR-4384 GT; MAGN400O6 GT; MEGE400O4 PO; MULT-447 GT; NA P133E RC; PIPE3.379 IV
--- NOTE | 2020-04-05 08:05 | NUR ---
KLALI MILLIGAN CALLED, LEFT A MESSAGE TO CALL BACK
[2020-04-05] MEDS ORDERED: ROCURONIUM BROMIDE 100 MG/10 ML VIAL IV ONE (08:30)
[2020-04-05] MEDS ORDERED: IV NS 0.9% 1,000 ML BAG IV ONE (08:30)
[2020-04-05] MEDS ORDERED: PIPERACILLIN /TAZOBACTAM 3.375 G in IV D5W 50 ML IV ONE (08:30)
[2020-04-05] MEDS ORDERED: VANCOMYCIN 1 GM in IV D5W 250 ML IV ONE (08:30)
[2020-04-05] MEDS ORDERED: ETOMIDATE 2 MG/ML VIAL IV ONE (08:30)
--- NOTE | 2020-04-05 08:36 | NUR ---
DR AGUILAR, RN AND RT AT BEDSIDE FOR INTUBATION
--- NOTE | 2020-04-05 08:37 | NUR ---
@ 0837 PT. INTUBATED BY ANGÉLICA CHO DUE TO INCREASED WORK OF BREATHING AND AIRWAY PROTECTION. INTUBATED WITH 7.5 ETT SECURED @ 23 CM CENTER OF THE LIPS. CO2 DETECTOR CHANGED TO YELLOW COLOR POST INTUBATION. BREATH SOUNDS CLEAR BILATERAL WITH SYMMETRICAL CHEST RISE. VENT SETTINGS BELOW ORDER: AC 22 VT 500ml FIO2 100% PEEP+ 12 VENT PLUGGED INTO RED OUTLET WITH ALARMS ON AND FUNCTIONING. IGNACIOUBAG@ BEDSIDE. Addendum: 04/05/20 at 0909 by VAN LANDIS RT Amended: Links added.
--- NOTE | 2020-04-05 08:40 | NUR ---
PT INTUBATED BY DR. CLEMENTE. RT @ BS. ET TUBE 7.5, 23 @ LIP. VENT SETTINGS: R22, 500ML TV, PEEP 12 @ 100%
[2020-04-05 09:25] LABS: BASOPHILS # (AUTO) 0.2 /CMM (0.0-0.2); EOSINOPHILS % (AUTO) 1.3 % (0.0-6.0); HEMATOCRIT 33 % (39-51); HEMOGLOBIN 10.6 g/dL (13.5-17.5); LYMPHOCYTES # (AUTO) 1.2 /CMM (0.8-4.8); LYMPHOCYTES % (AUTO) 6.2 % (20.0-44.0); MEAN CORPUSCULAR HGB CONC 32 g/dl (31.0-36.0); MEAN CORPUSCULAR VOLUME 93 fL (80-96); MONOCYTES # (AUTO) 0.7 /CMM (0.1-1.30); MONOCYTES % (AUTO) 3.7 % (2.0-12.0); NEUTROPHILS # (AUTO) 16.9 /CMM (1.8-8.9); NEUTROPHILS % (AUTO) 87.8 % (43.0-81.0); PLATELET COUNT (AUTO) 332 /CMM (150-450); RED BLOOD CELL COUNT(AUTO) 3.54 MIL/uL (4.5-6.0); WHITE BLOOD COUNT (AUTO) 19.2 K/uL (4.3-11.0)
[2020-04-05 09:33] LABS: CALCIUM, SERUM 8.9 mg/dL (8.5-10.1); CARBON DIOXIDE 29 mmol/L (21-32); CHLORIDE 110 mmol/L (98-107); CREATININE 1.3 mg/dL (0.6-1.3); GLUCOSE 126 mg/dL (74-106); POTASSIUM 4.8 mmol/L (3.5-5.1); SODIUM SERUM 142 mmol/L (136-145); UREA NITROGEN, BLOOD 42 mg/dL (7-18)
[2020-04-05 09:39] LABS: ALANINE AMINOTRANSFERASE 20 U/L (12-78); ALBUMIN 1.7 g/dL (3.4-5.0); ALKALINE PHOSPHATASE 107 U/L (46-116); ASPARTATE AMINOTRANSFERASE 43 U/L (15-37); BILIRUBIN,DIRECT 0.1 mg/dL (0.0-0.2); BILIRUBIN,TOTAL 0.1 mg/dL (0.2-1.0); TOTAL PROTEIN, SERUM 6.1 g/dL (6.4-8.2)
--- NOTE | 2020-04-05 09:41 | NUR ---
GOT ICU BED 257.
[2020-04-05] MEDS ORDERED: ASPI-605 GT (10:01)
[2020-04-05] MEDS ORDERED: LACT-96 (10:01)
[2020-04-05] MEDS ORDERED: ZINC1CAP3 GT (10:01)
[2020-04-05] MEDS ORDERED: SENN-18 GT (10:01)
[2020-04-05 10:13] LABS: ABG OXYGEN SATURATION 94.8 % (92.0-98.5); ABG PCO2 51.4 mmHg (35.0-45.0); ABG PH 7.256 (7.350-7.450); ABG PO2 92.8 mmHg (75.0-100.0); AaDO2 568.8 mmHg; COHb 0.3 % (0.5-1.5); MetHb 0.5 % (0.0-1.5); PEEP,BG 12 cm H2O; SITE, ABG Right Radial; VT, ABG 500 mL
--- NOTE | 2020-04-05 10:18 | NUR ---
VENT CHANGES BELOW PER ER MD: HIRAL 26 VT 550 Addendum: 04/05/20 at 1019 by VAN LANDIS RT Amended: Links added.
[2020-04-05] MEDS ORDERED: ACETAMINOPHEN 325 MG TABLET PO PRN (10:30)
[2020-04-05] MEDS ORDERED: MAGNESIUM HYDROXIDE 30 ML UDC PO PRN (10:30)
[2020-04-05] MEDS ORDERED: ENOXAPARIN SODIUM 40 MG/0.4 ML DISP.SYRIN SQ SCH (10:30)
[2020-04-05] MEDS ORDERED: ONDANSETRON HCL/PF 4 MG/2 ML VIAL IVP PRN (10:30)
[2020-04-05] MEDS ORDERED: ZOLPIDEM TARTRATE 5 MG TABLET PO PRN (10:30)
[2020-04-05] MEDS ORDERED: HYDROCODONE/APAP 5/325MG 1 EACH TABLET PO PRN (10:30)
[2020-04-05] MEDS ORDERED: MAG HYDROX/AL HYDROX/SIMETH 30 ML UDC PO PRN (10:30)
[2020-04-05] MEDS ORDERED: Z GUARD REMEDY 2 OZ OINT TP PRN (10:30)
--- NOTE | 2020-04-05 10:31 | NUR ---
REPORT GIVEN TO LOLITA MALDONADO FOR RENALDO.
[2020-04-05] MEDS ORDERED: FEE PK DOSING 1 MIN EA MC ONE (10:54)
--- NOTE | 2020-04-05 11:27 | NUR ---
transferred from er to icu 257 with same [facility] vent and settings. vent plugged into red outlet with alarms on and functioning. elisabeth @ bedside. Addendum: 04/05/20 at 1128 by VAN LANDIS RT Amended: Links added.
--- NOTE | 2020-04-05 12:00 | NUR ---
ICU/RN PT IS ADMITTED FROM ER INTUBATED ON THE VENT ON FIO2-100%,SAT O2 -87%.V/S STABLE,AFEBRILE.HR 115-120 BPM.PT IS RESPONSIVE ON PAIN STIMULATION. CONTRACTED ,MULTIPLY WOUND NOTED ALL OVER THE BODY.F/C REPLACED .RIGHT UPPER ARM PICC LINE,NO BLOOD RETURN. REDNESS ON ELYSIA ARE NOTED..CONTINUE MONITORING.
[2020-04-05] MEDS: FUROSEMIDE 40 MG/4 ML VIAL IV SCH ×2 (12:20→16:11)
[2020-04-05] MEDS: DEXAMETHASONE SOD PHOSPHATE 10 MG/ML VIAL IV SCH (12:20)
[2020-04-05 12:22] LABS: ABG BASE EXCESS -0.2 mmol/L; ABG OXYGEN SATURATION 77.8 % (92.0-98.5); ABG PCO2 64.5 mmHg (35.0-45.0); ABG PH 7.259 (7.350-7.450); AaDO2 603.5 mmHg; COHb 0.5 % (0.5-1.5); MetHb 0.3 % (0.0-1.5); O2Hb 77.2 % (94.0-97.0); PEEP,BG 12 cm H2O; SITE, ABG Left Radial; VT, ABG 550 mL
--- NOTE | 2020-04-05 12:35 | NUR ---
VENT CHANGES BELOW PER DR. WHITE: AC 30 VT 600 Addendum: 04/05/20 at 1236 by VAN LANDIS RT Amended: Links added.
[2020-04-05 14:28] LABS: THYROID STIMULATING HORMONE 5.791 uIU/mL (0.358-3.74)
[2020-04-05 15:05] LABS: ABG BASE EXCESS -3.4 mmol/L; ABG OXYGEN SATURATION 99.5 % (92.0-98.5); ABG PCO2 69.6 mmHg (35.0-45.0); ABG PH 7.191 (7.350-7.450); ABG PO2 282.7 mmHg (75.0-100.0); AaDO2 360.7 mmHg; COHb 0.3 % (0.5-1.5); MetHb 0.2 % (0.0-1.5); PEEP,BG 12 cm H2O; SITE, ABG Right Radial; VT, ABG 600 mL
--- NOTE | 2020-04-05 15:18 | NUR ---
VENT CHANGES BELOW PER DR. WHITE: VT 650 ML FIO2 60% PEEP +8 Addendum: 04/05/20 at 1519 by VAN LANDIS RT Amended: Links added.
--- NOTE | 2020-04-05 15:54 | NUR ---
vent changes below per dr. bess: fio2 100% peep +10 Addendum: 04/05/20 at 1555 by VAN LANDIS RT Amended: Links added.
[2020-04-05] MEDS: PHENYLEPHRINE 100 MG in IV NS 0.9% 240 ML IV PRN (16:12)
[2020-04-05] MEDS: PROPOFOL 100 ML IV PRN (16:14)
[2020-04-05] MEDS ORDERED: IV NS 0.9% 500 ML BAG IV ONE (16:30)
[2020-04-05] MEDS: PIPERACILLIN /TAZOBACTAM 3.375 G in IV D5W 50 ML IV SCH (17:06)
[2020-04-05] MEDS: ASPIRIN 81 MG TAB.CHEW PO SCH (17:06)
[2020-04-05 17:26] LABS: ABG BASE EXCESS -2.2 mmol/L; ABG OXYGEN SATURATION 99.6 % (92.0-98.5); ABG PCO2 45.3 mmHg (35.0-45.0); ABG PH 7.337 (7.350-7.450); ABG PO2 366.3 mmHg (75.0-100.0); AaDO2 301.4 mmHg; COHb 0.3 % (0.5-1.5); MetHb 0.3 % (0.0-1.5); PEEP,BG 10 cm H2O; SITE, ABG Right Radial; VT, ABG 650 mL
--- NOTE | 2020-04-05 17:35 | NUR ---
PEEP OF +[address] WHITE Addendum: 04/05/20 at 1735 by VAN LANDIS RT Amended: Links added.
--- NOTE | 2020-04-05 18:00 | NUR ---
ICU/RN PM CARE PROVIDED.WOUND DRESSING DONE.REPOSITION FOR COMFORT.DIPRIVAN STARTED ORDERED, NEOSYNEPHRINE STARTED.
--- NOTE | 2020-04-05 19:28 | NUR ---
PRESCRIPTION CLERK. INITIAL ASSESSMENT. RECEIVED THE PT REST ON THE BED. ORALLY INTUBATED, SEDATED WITH DIPRIVAN. ETT 7.5,LIP 23,AC 30,TV 650,FIO2 100%,PEEP 8. SAT 98%, NO ACUTE DISTRESS NOTED. AD COPY WRITER SHOWING S ANDRZEJ. HOB ELEVATED. GT CLAMPED, FC PATENT, BRANDIE SOFT WRIST RESTRAINT CHECKED AND RELEASED. NO INJURY OR REDNESS NOTED. PT IS NPO RT UPPER ARM PICC LINE DIPRIVAN 10 MCG/KG/MIN,KYLER 0.7MCG/KG/MIN,TKO STARTED. AFEBRILE. WILL CONTINUE TO MONITOR VITALS.
[2020-04-05] MEDS ORDERED: NOREPINEPHRINE 8 MG in IV NS 0.9% 242 ML IV PRN (19:30)
[2020-04-05] MEDS ORDERED: IV NS 0.9% 250 ML IV PRN (19:30)
[2020-04-06] VITALS (87 sets, daily range): BP systolic 58–143; BP diastolic 36–91
[2020-04-06] MEDS: PROPOFOL 100 ML IV PRN ×2 (00:40→18:54)
[2020-04-06] MEDS: PIPERACILLIN /TAZOBACTAM 3.375 G in IV D5W 50 ML IV SCH ×4 (00:45→18:20)
[2020-04-06] MEDS: PHENYLEPHRINE 100 MG in IV NS 0.9% 240 ML IV PRN ×2 (01:50→11:04)
--- NOTE | 2020-04-06 03:39 | NUR ---
agricultural adviser. am care. oral care, bed bath given. linen changed.remaining same vent setting tolerated well. sat 98%. no acute distress noted. clinical project leader showing s berto. hob elevated, ivf tko @5ml/h.diprivan 15mcg/kg/min,dannielle 1.1mcg/kg/min,gt clamped. afebrile. npo. will continue to monitor vitals.
[2020-04-06 05:13] LABS: BASOPHILS # (AUTO) 0.1 /CMM (0.0-0.2); BASOPHILS % (AUTO) 0.3 % (0.0-2.0); HEMATOCRIT 36 % (39-51); HEMOGLOBIN 11.5 g/dL (13.5-17.5); LYMPHOCYTES # (AUTO) 2.2 /CMM (0.8-4.8); LYMPHOCYTES % (AUTO) 6.9 % (20.0-44.0); MEAN CORPUSCULAR HGB CONC 32 g/dl (31.0-36.0); MEAN CORPUSCULAR VOLUME 95 fL (80-96); MONOCYTES # (AUTO) 1.2 /CMM (0.1-1.30); MONOCYTES % (AUTO) 3.8 % (2.0-12.0); NEUTROPHILS # (AUTO) 28.6 /CMM (1.8-8.9); PLATELET COUNT (AUTO) 496 /CMM (150-450); RED BLOOD CELL COUNT(AUTO) 3.81 MIL/uL (4.5-6.0)
[2020-04-06 05:15] LABS: WHITE BLOOD COUNT (AUTO) 32.2 K/uL (4.3-11.0)
[2020-04-06 05:20] LABS: CALCIUM, SERUM 9.5 mg/dL (8.5-10.1); CARBON DIOXIDE 21 mmol/L (21-32); CHLORIDE 107 mmol/L (98-107); CREATININE 2.2 mg/dL (0.6-1.3); GLUCOSE 104 mg/dL (74-106); MAGNESIUM 2.2 mg/dL (1.8-2.4); PHOSPHORUS 4.7 mg/dL (2.5-4.9); SODIUM SERUM 140 mmol/L (136-145); UREA NITROGEN, BLOOD 53 mg/dL (7-18)
[2020-04-06 05:25] LABS: POTASSIUM 6.2 mmol/L (3.5-5.1)
[2020-04-06 05:28] LABS: CHOLESTEROL 119 mg/dL (<200); HDL CHOLESTEROL 31 mg/dL (40-60); LDL 76 mg/dL (0-99); THYROID STIMULATING HORMONE 5.687 uIU/mL (0.358-3.74); TRIGLYCERIDES 128 mg/dL (30-150)
[2020-04-06 06:00] LABS: BAND % (MANUAL) 1 % (0.0-5.0); LYMPHOCYTES % (MANUAL) 2 % (16-48); MONOCYTES % (MANUAL) 2 % (0-11.0); NEUTROPHILS % (MANUAL) 95 (42-76)
[2020-04-06] MEDS ORDERED: SODIUM POLYSTYRENE SULFONATE 15 G/60 ML BOTTLE PO ONE (06:00)
[2020-04-06] MEDS ORDERED: SODIUM POLYSTYRENE SULFONATE 15 G/60 ML BOTTLE ONE ×2 (06:08→06:09)
--- NOTE | 2020-04-06 06:51 | NUR ---
horticulture professor. omaira sykes extremity contracted
--- NOTE | 2020-04-06 06:52 | NUR ---
lab called for potassium 6.2. wbc 32.2. notified esteban latham. order received
--- NOTE | 2020-04-06 07:00 | NUR ---
agricultural research technologist.temperature 100. tylenol given per md ordered
[2020-04-06] MEDS ORDERED: IV NS 0.9% 1,000 ML IV PRN (08:03)
[2020-04-06 08:11] LABS: ABG OXYGEN SATURATION 99.5 % (92.0-98.5); ABG PCO2 24.3 mmHg (35.0-45.0); ABG PO2 460.2 mmHg (75.0-100.0); AaDO2 228.5 mmHg; COHb 0.3 % (0.5-1.5); MetHb 0.3 % (0.0-1.5); O2Hb 98.9 % (94.0-97.0); PEEP,BG 8 cm H2O; SITE, ABG Left Radial; VT, ABG 650 mL
--- NOTE | 2020-04-06 08:23 | NUR ---
WOUND CARE CONSULT: REVIEWED CHART, NURSING DOCUMENTATION AND PHOTOS WHICH SHOW MULTIPLE WOUNDS PRESENT ON ADMISSION. RECOMMEND DPM AND SURGICAL CONSULTS. DR MENDOZA AND DR KEYS NOTIFIED OF CONSULT REQUESTS. PT IS ON ISOFLEX LOW AIRLOSS BED. ALL SKIN PROTECTION RECOMMENDATIONS MADE AND DISCUSSED WITH NURSING STAFF. WILL SEE PRN. CHO IN AGREEMENT WITH PLAN OF CARE.
[2020-04-06] MEDS: ASPIRIN 81 MG TAB.CHEW PO SCH (08:50)
[2020-04-06] MEDS: ENOXAPARIN SODIUM 30 MG/0.3 ML DISP.SYRIN SQ SCH (08:50)
[2020-04-06] MEDS: DEXAMETHASONE SOD PHOSPHATE 10 MG/ML VIAL IV SCH (08:50)
[2020-04-06] MEDS: PANTOPRAZOLE 40 MG TABLET.DR PO SCH (08:50)
[2020-04-06] MEDS ORDERED: VANCOMYCIN 0.75 GM in IV D5W 250 ML IV SCH (10:00)
[2020-04-06] MEDS ORDERED: FUROSEMIDE 20 MG/2 ML VIAL IV ONE (13:00)
[2020-04-06] MEDS: Sodium Bicarbonate 100 MEQ in IV D5/0.45 NACL 1,000 ML IV PRN (13:33)
[2020-04-06] MEDS: LEVOTHYROXINE SODIUM 100 MCG TABLET PO SCH (14:26)
--- NOTE | 2020-04-06 17:40 | NUR ---
RT NOTE Pt received intubated via 7.5 ETT @ 23cm and on [facility] vent on ordered settings. Alarms are set and audible. Bmv @ hob. Vent plugged into red outlet. Pt is stable. No respiratory distress noted t/o shift. Addendum: 04/06/20 at 1825 by BLANCA WALKER RT Amended: Links added.
--- NOTE | 2020-04-06 19:55 | NUR ---
curriculum counselor closing note no significant changed. no distress noted, tolerating current vent settings. kept clean and dry. wound tx done. all due meds given. hob elevated. gt in place, patent and intact. f/c draining by gravity. turned and repositioned q2 and prn. isolation precautions observed. side rails up and locked. bed kept at lowest position. sofia picc line patent and intact with diprivan at 10mcg/kg/min and dannielle at 0.8 mcg/kg/min. continuity of care endorsed to pm nurse.
--- NOTE | 2020-04-06 20:03 | NUR ---
RT NOTE PT RECEIVED INTUBATED WITH 7.5 ET TUBE @ 23 CM LIP LINE. MOVED ET TUBE TO MID LIP LINE. SX DONE, ET TUBE SECURED AND PATENT. ALARMS ON AND AUDIBLE. VENT PLUGGED TO RED OUTLET. SRINIVASA BAG @ HOB. NO DISTRESS NOTED AT THIS TIME. WILL CONTINUE TO MONITOR T/O SHIFT. Addendum: 04/06/20 at 2004 by SAIDA SEBASTIAN RT Amended: Links added.
--- NOTE | 2020-04-06 23:35 | NUR ---
RT NOTE TITRATED FIO2 TO 50%. RN PAMELA AWARE. NO SOB NOTED AT THIS TIME. WILL CONTINUE TO MONITOR CLOSELY.
[2020-04-07] VITALS (97 sets, daily range): BP systolic 73–139; BP diastolic 38–71
[2020-04-07] MEDS: PIPERACILLIN /TAZOBACTAM 3.375 G in IV D5W 50 ML IV SCH ×4 (00:11→17:23)
[2020-04-07] MEDS: Sodium Bicarbonate 100 MEQ in IV D5/0.45 NACL 1,000 ML IV PRN (00:17)
--- NOTE | 2020-04-07 01:08 | NUR ---
RT NOTE PLACED PT BACK ON 60% DUE TO DESATURATION. RN PAMELA AWARE. WILL CONTINUE TO MONITOR.
--- NOTE | 2020-04-07 02:10 | NUR ---
POLICE BOOKING OFFICER COVID TEST NEGATIVE. CONTINUE TO MONITOR.
[2020-04-07] MEDS: PHENYLEPHRINE 100 MG in IV NS 0.9% 240 ML IV PRN (02:54)
[2020-04-07 04:50] LABS: BASOPHILS # (AUTO) 0.1 /CMM (0.0-0.2); BASOPHILS % (AUTO) 0.3 % (0.0-2.0); EOSINOPHILS % (AUTO) 0.2 % (0.0-6.0); HEMATOCRIT 28 % (39-51); HEMOGLOBIN 9.2 g/dL (13.5-17.5); LYMPHOCYTES # (AUTO) 2.5 /CMM (0.8-4.8); LYMPHOCYTES % (AUTO) 11.9 % (20.0-44.0); MEAN CORPUSCULAR HGB CONC 33 g/dl (31.0-36.0); MEAN CORPUSCULAR VOLUME 92 fL (80-96); MONOCYTES # (AUTO) 1.3 /CMM (0.1-1.30); NEUTROPHILS # (AUTO) 17.3 /CMM (1.8-8.9); NEUTROPHILS % (AUTO) 81.6 % (43.0-81.0); PLATELET COUNT (AUTO) 382 /CMM (150-450); RED BLOOD CELL COUNT(AUTO) 3.04 MIL/uL (4.5-6.0); WHITE BLOOD COUNT (AUTO) 21.2 K/uL (4.3-11.0)
[2020-04-07] MEDS: PROPOFOL 100 ML IV PRN (05:30)
[2020-04-07 05:31] LABS: CARBON DIOXIDE 23 mmol/L (21-32); CHLORIDE 105 mmol/L (98-107); GLUCOSE 110 mg/dL (74-106); MAGNESIUM 2.1 mg/dL (1.8-2.4); PHOSPHORUS 3.3 mg/dL (2.5-4.9); SODIUM SERUM 142 mmol/L (136-145); UREA NITROGEN, BLOOD 65 mg/dL (7-18)
--- NOTE | 2020-04-07 06:49 | NUR ---
CAR DUMPER OPERATOR PT WITH WHAT APPEARS TO BE DRY BLACK BLOOD ON RIGHT NOSTRIL CLEANED WITH INTERMITTENT BLEEDING NOTED.
[2020-04-07 08:06] LABS: ABG BASE EXCESS 1.1 mmol/L; ABG OXYGEN SATURATION 98.2 % (92.0-98.5); ABG PCO2 22.8 mmHg (35.0-45.0); ABG PH 7.602 (7.350-7.450); ABG PO2 110.1 mmHg (75.0-100.0); AaDO2 292.6 mmHg; COHb 0.3 % (0.5-1.5); MetHb 0.3 % (0.0-1.5); O2Hb 97.6 % (94.0-97.0); SITE, ABG Right Radial
[2020-04-07] MEDS: LEVOTHYROXINE SODIUM 100 MCG TABLET PO SCH (08:19)
[2020-04-07] MEDS: ASPIRIN 81 MG TAB.CHEW PO SCH (08:19)
[2020-04-07] MEDS: PANTOPRAZOLE 40 MG TABLET.DR PO SCH (08:19)
[2020-04-07] MEDS: DEXAMETHASONE SOD PHOSPHATE 10 MG/ML VIAL IV SCH (08:19)
[2020-04-07] MEDS: ENOXAPARIN SODIUM 30 MG/0.3 ML DISP.SYRIN SQ SCH (08:20)
[2020-04-07] MEDS: THERAHONEY GEL 1.5 OZ TUBE TP SCH (08:20)
[2020-04-07] MEDS: IV D5/ 0.9% NACL 1,000 ML IV PRN ×2 (09:33→18:52)
[2020-04-07] MEDS: VANCOMYCIN 0.75 GM in IV D5W 250 ML IV SCH (10:27)
--- NOTE | 2020-04-07 10:49 | NUR ---
RN NOTE 0715: Received patient with ETT intact, to vent, tolerated settings at this time. With GT clamped. FRANCHESCA PICC intact. On D5 1/2 NS with 100mEq Bicarb @ 100, Levo @ 0.8 and Diprivan @ 10. Will titrate meds as ordered. SB 40-50's on the monitor. Chavez cath intact, noted with minimal amount of jose colored urine drained to BSD. PNEUMATIC TESTER restraints on for safety. Noted with BLE contracted. 0830: S/E by Dr. Horner, ABG resulted with new order of settings AC 22 500 50%, will monitor. Changed IVF from with Bicarb to D%NS. 1045: No any significant changes noted at this time . On Levo @ 0.9, Diprivan is off per Dr. Horner, will keep off for now, VSS and no resp distress. Patient is unable to follow commands, does not open eyes either, noted with facial grimace on painful stimuli. Turned and repositioned q2. Made MD aware for low UOP.
[2020-04-07] MEDS ORDERED: ETOMIDATE 2 MG/ML VIAL IV ONE (15:16)
[2020-04-07] MEDS ORDERED: FEE EMEERGENCY 1 MIN EA MC ONE (15:16)
[2020-04-07] MEDS ORDERED: ROCURONIUM BROMIDE 50 MG/5 ML IV ONE (15:16)
[2020-04-07] MEDS: JEVITY 1.2 CAL 1,000 ML BOTTLE GT PRN (17:27)
--- NOTE | 2020-04-07 18:37 | NUR ---
RN NOTE No any significant changes noted. Noted with bleeding on nose, placed dry dressing. Started on TF @ mL/hr. Will continue to monitor. Remained on Levo @ 0.5mcg at this time. Kept clean, warm and dry. Needs attended. SB 40, with episode of 30's, kept SBP >100. Low UOP, awaiting Bumex drip from pharmacy.
--- NOTE | 2020-04-07 19:30 | NUR ---
[employer] RCD PT W/DX RESP FAIL; PT IS OBTUNDED. SB ON MONITOR. ON NEOSTNEPHRINE @ 0.5 MCG/KG/MIN TO MAIN SBP >90. INTUBATED 7.5 @ 23 W/VENT SETTINGS AC 22 500 50% +8. PT HAS THICK WHITE SECRETIONS; RENDERED ORAL CARE. SANTANA CATH IN PLACE W/MIN URINE OUTPUT; PENDING PHARMACY DELIVERY OF BUMEX. MULTIPLE SKIN ISSUES W/DRESSINGS C/D/I. JEVITY 1.2 @ 20 ML/HR VIA G TUBE WITH GOAL OF 60 ML/HR. NO RESIDUAL AT THIS TIME. FRANCHESCA PICC LINE IN PLACE' NO BLOOD RETURN AT THIS TIME. CONTINUE TO MONITOR.
[2020-04-07] MEDS ORDERED: BUMETANIDE INJ 4 MG in IV D5W 24 ML IV ONE (20:00)
[2020-04-08] VITALS (94 sets, daily range): BP systolic 73–161; BP diastolic 39–80
[2020-04-08] MEDS: PHENYLEPHRINE 100 MG in IV NS 0.9% 240 ML IV PRN (00:30)
[2020-04-08] MEDS: IV D5/ 0.9% NACL 1,000 ML IV PRN ×3 (00:30→16:54)
[2020-04-08 04:48] LABS: BASOPHILS % (AUTO) 0.1 % (0.0-2.0); EOSINOPHILS % (AUTO) 0.4 % (0.0-6.0); HEMATOCRIT 24 % (39-51); HEMOGLOBIN 7.7 g/dL (13.5-17.5); LYMPHOCYTES # (AUTO) 1.2 /CMM (0.8-4.8); LYMPHOCYTES % (AUTO) 10.6 % (20.0-44.0); MEAN CORPUSCULAR HGB CONC 32 g/dl (31.0-36.0); MEAN CORPUSCULAR VOLUME 92 fL (80-96); MONOCYTES # (AUTO) 0.5 /CMM (0.1-1.30); MONOCYTES % (AUTO) 4.4 % (2.0-12.0); NEUTROPHILS # (AUTO) 9.5 /CMM (1.8-8.9); NEUTROPHILS % (AUTO) 84.5 % (43.0-81.0); PLATELET COUNT (AUTO) 267 /CMM (150-450); WHITE BLOOD COUNT (AUTO) 11.3 K/uL (4.3-11.0)
[2020-04-08 04:59] LABS: CALCIUM, SERUM 7.4 mg/dL (8.5-10.1); CARBON DIOXIDE 24 mmol/L (21-32); CHLORIDE 105 mmol/L (98-107); CREATININE 3.5 mg/dL (0.6-1.3); GLUCOSE 161 mg/dL (74-106); MAGNESIUM 2.2 mg/dL (1.8-2.4); PHOSPHORUS 4.3 mg/dL (2.5-4.9); POTASSIUM 4.1 mmol/L (3.5-5.1); SODIUM SERUM 140 mmol/L (136-145); UREA NITROGEN, BLOOD 69 mg/dL (7-18)
[2020-04-08] MEDS: PIPERACILLIN /TAZOBACTAM 3.375 G in IV D5W 50 ML IV SCH ×6 (05:30→23:29)
--- NOTE | 2020-04-08 07:39 | NUR ---
RN NOTE 0715: Received patient with ETT intact, to vent, tolerated settings at this time. With GT intact, TF tolerated, on 30mL/hr, goal of 60. Awaiting Chavez cath intact, noted with minimal UOP, jose with sediments. BLE contracted. PUMPER HELPER restraints on for safety. FRANCHESCA PICC intact. On Levo @ 0.2mcg and IVF infusing as ordered. SB 40's on the monitor. 0730: S/E by Dr. Horner, patient is still unable to follow commands. Only responds to painful stimuli. Tried calling Yemi, family, but no answer. Called SNF and spoke with a nurse re: patient's mentality, about 2 weeks ago, patient became less responsive and does not talk anymore like before that he was able to follow simple commands at times. 0735: ABG resulted, Dr. Horner in the unit with order to change vent settings from AC 22 500 50% +8 to AC 16 PEEP 5, will monitor.
[2020-04-08 07:46] LABS: ABG BASE EXCESS -3.5 mmol/L; ABG OXYGEN SATURATION 98.9 % (92.0-98.5); ABG PCO2 28.3 mmHg (35.0-45.0); ABG PH 7.459 (7.350-7.450); ABG PO2 151.4 mmHg (75.0-100.0); AaDO2 173.3 mmHg; COHb 0.3 % (0.5-1.5); MetHb 0.2 % (0.0-1.5); O2Hb 98.4 % (94.0-97.0); SITE, ABG Left Radial; VENT MODE, BG AC 22 500 50% +8
[2020-04-08] MEDS: LEVOTHYROXINE SODIUM 100 MCG TABLET PO SCH (08:11)
[2020-04-08] MEDS: PANTOPRAZOLE 40 MG TABLET.DR PO SCH (08:11)
[2020-04-08] MEDS: DEXAMETHASONE SOD PHOSPHATE 10 MG/ML VIAL IV SCH (08:11)
[2020-04-08] MEDS: ASPIRIN 81 MG TAB.CHEW PO SCH (08:11)
[2020-04-08] MEDS: ENOXAPARIN SODIUM 30 MG/0.3 ML DISP.SYRIN SQ SCH (08:13)
[2020-04-08] MEDS: THERAHONEY GEL 1.5 OZ TUBE TP SCH (09:20)
[2020-04-08] MEDS: VANCOMYCIN 0.75 GM in IV D5W 250 ML IV SCH (10:39)
[2020-04-08] MEDS ORDERED: HYDROCODONE/APAP 5/325MG 1 EACH TABLET GT PRN ×2 (12:00→12:30)
[2020-04-08] MEDS ORDERED: MAGNESIUM HYDROXIDE 30 ML UDC GT PRN ×2 (12:00)
[2020-04-08] MEDS ORDERED: BISACODYL SUPP (10 MG) 10 MG/SUPP.RECT SUPP.RECT RC PRN (12:00)
[2020-04-08] MEDS ORDERED: NA PHOS,M-B/NA PHOS,DI-BA 1 EA ENEMA RC PRN (12:00)
[2020-04-08] MEDS ORDERED: MAG HYDROX/AL HYDROX/SIMETH 30 ML UDC GT PRN (12:00)
[2020-04-08] MEDS: GABAPENTIN 100 MG CAPSULE GT SCH ×2 (12:21→17:02)
[2020-04-08] MEDS: HYDROCODONE/APAP 5/325MG 1 EACH TABLET GT SCH (12:22)
[2020-04-08] MEDS: HYDROCORTISONE SOD SUCCINATE 100 MG/2 ML VIAL IV SCH ×2 (12:59→17:02)
--- NOTE | 2020-04-08 13:54 | NUR ---
RN NOTE Received order to give 1PRBC today, tried calling Yemi Hernandez again @ [phone], but no answer, again left message.
--- NOTE | 2020-04-08 16:12 | NUR ---
RN NOTE Still unable to get a hold of RP, per Dr. Maldonado, give 1PRBCMD's agreed.
[2020-04-08] MEDS ORDERED: APIXABAN 5 MG TABLET GT SCH (17:00)
[2020-04-08] MEDS ORDERED: DOCUSATE SODIUM 100 MG CAPSULE PO SCH (17:00)
[2020-04-08] MEDS: DOCUSATE SODIUM LIQ 100 MG/10 ML UDC GT SCH (17:02)
[2020-04-08] MEDS: BACLOFEN (10 MG) 10 MG TABLET GT SCH (17:02)
--- NOTE | 2020-04-08 19:09 | NUR ---
RN NOTE Blood transfusion ongoing, tolerated. On Levo 0.3mcg. D5NS IVF on hold while on BT. Kept clean, warm and dry.
--- NOTE | 2020-04-08 19:45 | NUR ---
RN CAMP BLOOD TRANSFUSION COMPLETE AT THIS TIME. VSS.
[2020-04-08] MEDS: APIXABAN 2.5 MG TABLET GT SCH (20:00)
[2020-04-08] MEDS: ATORVASTATIN 40 MG TABLET GT SCH (22:57)
[2020-04-08] MEDS: SENNOSIDES 8.6 MG TABLET GT SCH (22:58)
[2020-04-09] VITALS (38 sets, daily range): BP systolic 70–130; BP diastolic 33–71
[2020-04-09] MEDS: IV D5/ 0.9% NACL 1,000 ML IV PRN ×3 (03:47→20:25)
--- NOTE | 2020-04-09 04:53 | NUR ---
RT NOTE PT rec'd orally intubated via ETT #7.5 secured @ 23CM at the lipline. pt on [facility] vent on AC mode settings as charted. Pt shows no signs of resp distress or sob. Pt sx'd for thick large amt of blood tinged secretions. Alarms are set and auidble. Vent plugged into red outlet. Ambu bag bedside. Will continue to monitor cloesly. Addendum: 04/09/20 at 0453 by CAREN CALHOUN RT Amended: Links added.
[2020-04-09 05:55] LABS: ABG BASE EXCESS -4.6 mmol/L; ABG OXYGEN SATURATION 98.8 % (92.0-98.5); ABG PCO2 31.9 mmHg (35.0-45.0); ABG PH 7.403 (7.350-7.450); ABG PO2 150.2 mmHg (75.0-100.0); AaDO2 170.4 mmHg; MetHb 0.1 % (0.0-1.5); O2Hb 98.7 % (94.0-97.0); PEEP,BG 5 cm H2O
[2020-04-09] MEDS: PIPERACILLIN /TAZOBACTAM 3.375 G in IV D5W 50 ML IV SCH ×3 (06:15→18:00)
--- NOTE | 2020-04-09 06:38 | NUR ---
LAB DIRECTOR MOLD SETTER UNABLE TO DRAW BLOOD.
[2020-04-09 06:49] LABS: SITE, ABG Right Radial
[2020-04-09 08:06] LABS: BASOPHILS % (AUTO) 0.3 % (0.0-2.0); EOSINOPHILS % (AUTO) 0.1 % (0.0-6.0); HEMATOCRIT 33 % (39-51); HEMOGLOBIN 10.2 g/dL (13.5-17.5); LYMPHOCYTES # (AUTO) 0.9 /CMM (0.8-4.8); LYMPHOCYTES % (AUTO) 7.1 % (20.0-44.0); MEAN CORPUSCULAR HGB CONC 31 g/dl (31.0-36.0); MEAN CORPUSCULAR VOLUME 96 fL (80-96); MONOCYTES # (AUTO) 0.5 /CMM (0.1-1.30); MONOCYTES % (AUTO) 4.1 % (2.0-12.0); NEUTROPHILS # (AUTO) 10.6 /CMM (1.8-8.9); NEUTROPHILS % (AUTO) 88.4 % (43.0-81.0); PLATELET COUNT (AUTO) 271 /CMM (150-450); RED BLOOD CELL COUNT(AUTO) 3.44 MIL/uL (4.5-6.0)
[2020-04-09] MEDS: ZINC SULFATE 220 MG CAPSULE GT SCH (08:31)
[2020-04-09] MEDS: ASPIRIN 81 MG TAB.CHEW GT SCH (08:31)
[2020-04-09] MEDS: DOCUSATE SODIUM LIQ 100 MG/10 ML UDC GT SCH ×2 (08:31→16:18)
[2020-04-09] MEDS: HYDROCORTISONE SOD SUCCINATE 100 MG/2 ML VIAL IV SCH ×3 (08:31→16:17)
[2020-04-09] MEDS: GABAPENTIN 100 MG CAPSULE GT SCH ×3 (08:32→16:17)
[2020-04-09] MEDS: ASCORBIC ACID 500 MG TABLET GT SCH (08:32)
[2020-04-09] MEDS: PANTOPRAZOLE 40 MG/PACK PACK GT SCH (08:32)
[2020-04-09] MEDS: THERAHONEY GEL 1.5 OZ TUBE TP SCH (08:32)
[2020-04-09] MEDS: BACLOFEN (10 MG) 10 MG TABLET GT SCH ×2 (08:32→16:17)
[2020-04-09] MEDS: HYDROCODONE/APAP 5/325MG 1 EACH TABLET GT SCH ×2 (08:32→12:03)
[2020-04-09] MEDS: MULTIVIT W/MINERALS 1 TAB TABLET GT SCH (08:32)
[2020-04-09] MEDS: LEVOTHYROXINE SODIUM 100 MCG TABLET GT SCH (08:32)
[2020-04-09] MEDS ORDERED: ASPIRIN EC 81 MG TABLET.DR PO SCH (09:00)
[2020-04-09 09:19] LABS: CARBON DIOXIDE 18 mmol/L (21-32); CHLORIDE 105 mmol/L (98-107); CREATININE 3.8 mg/dL (0.6-1.3); GLUCOSE 167 mg/dL (74-106); MAGNESIUM 2.3 mg/dL (1.8-2.4); PHOSPHORUS 4.6 mg/dL (2.5-4.9); POTASSIUM 4.5 mmol/L (3.5-5.1); SODIUM SERUM 138 mmol/L (136-145); UREA NITROGEN, BLOOD 74 mg/dL (7-18)
[2020-04-09] MEDS: VANCOMYCIN 0.75 GM in IV D5W 250 ML IV SCH (10:00)
[2020-04-09] MEDS: APIXABAN 2.5 MG TABLET GT SCH ×3 (11:35→16:18)
[2020-04-09] MEDS: JEVITY 1.2 CAL 1,000 ML BOTTLE GT PRN (18:11)
--- NOTE | 2020-04-09 19:29 | NUR ---
RN OPENING NOTES received the client resting in bed. Client is nonverbal, VS baseline HR is 50's, and 40's. According to previous shift nurse, this has been the baseline. At this moment, BP 106/57. RR 16. the client is on external telemonitor, SB. The client is ventilator, peep of 8, ac16, tv 500, fio2 50%. The client remains stable, no s/s of distress, or pain. The client is currently receiving 150ml/hr of D5 NS trough a SANDI midline, Flushing well at this time. The is also on Peg tube, receiving 45ml/hr, no residual at this time. All safety mechanisms in place, will continue to monitor. Bed locked in the lowest position, side rails up x2, call light within reach. Restraints remain off at this time.
[2020-04-09] MEDS: SENNOSIDES 8.6 MG TABLET GT SCH (22:22)
[2020-04-09] MEDS: ATORVASTATIN 40 MG TABLET GT SCH (22:22)
[2020-04-10] VITALS (36 sets, daily range): BP systolic 94–139; BP diastolic 44–74
[2020-04-10] MEDS: PIPERACILLIN /TAZOBACTAM 3.375 G in IV D5W 50 ML IV SCH ×5 (00:05→23:19)
[2020-04-10] MEDS: IV D5/ 0.9% NACL 1,000 ML IV PRN (03:24)
--- NOTE | 2020-04-10 07:30 | NUR ---
RECEIVED PATIENT IN BED. NO ACUTE DISTRESS NOTED. PATIENT OBTUNDED. PATIENT ON MECHANICAL VENTILATOR, SATURATING WELL AT 100%, BREATHING EVEN AND UNLABORED. PATIENT ON PATIENT SAFETY TECH, SINUS BRADYCARDIA NOTED WITH HEART RATE IN 40S. PATIENT G-TUBE IN PLACE, INTACT, PATENT, FLUSHED WELL. PATIENT SANTANA CATHETER IN PLACE, INTACT, DRAINING TO GRAVITY. PATIENT LEFT UPPER ARM MIDLINE INTACT, PATENT, FLUSHED WELL. PATIENT SAFETY MAINTAINED. CALL LIGHT WITHIN REACH. WILL CONTINUE TO MONITOR.
--- NOTE | 2020-04-10 07:40 | NUR ---
RN CLOSING NOTES Client is nonverbal, VS baseline HR is 50's, and 40's. According to previous shift nurse, this has been the baseline. The client is on external telemonitor, SB. The client continues on ventilator, peep of 8, ac16, tv 500, fio2 50%. The client remains stable, no s/s of distress, or pain. The client is currently receiving 150ml/hr of D5 NS trough a SANDI midline, Flushing well at this time. There client is also on Peg tube, receiving 45ml/hr, no residual at this time. All safety mechanisms in place, will endorse the next shift. Bed locked in the lowest position, side rails up x2, call light within reach. Restraints remain off at this time
[2020-04-10] MEDS: ASCORBIC ACID 500 MG TABLET GT SCH (08:25)
[2020-04-10] MEDS: BACLOFEN (10 MG) 10 MG TABLET GT SCH ×2 (08:26→17:16)
[2020-04-10] MEDS: ASPIRIN 81 MG TAB.CHEW GT SCH (08:26)
[2020-04-10] MEDS: LEVOTHYROXINE SODIUM 100 MCG TABLET GT SCH (08:26)
[2020-04-10] MEDS: ZINC SULFATE 220 MG CAPSULE GT SCH (08:26)
[2020-04-10] MEDS: MULTIVIT W/MINERALS 1 TAB TABLET GT SCH (08:26)
[2020-04-10] MEDS: PANTOPRAZOLE 40 MG/PACK PACK GT SCH (08:26)
[2020-04-10] MEDS: HYDROCODONE/APAP 5/325MG 1 EACH TABLET GT SCH ×2 (08:28→12:28)
[2020-04-10] MEDS: DOCUSATE SODIUM LIQ 100 MG/10 ML UDC GT SCH ×2 (08:28→17:15)
[2020-04-10] MEDS: APIXABAN 2.5 MG TABLET GT SCH ×2 (08:28→17:17)
[2020-04-10] MEDS: HYDROCORTISONE SOD SUCCINATE 100 MG/2 ML VIAL IV SCH ×3 (08:28→17:16)
[2020-04-10] MEDS: THERAHONEY GEL 1.5 OZ TUBE TP SCH (08:29)
[2020-04-10] MEDS ORDERED: BUMETANIDE INJ 6 MG in IV NS 0.9% 36 ML IV ONE (09:00)
--- NOTE | 2020-04-10 09:15 | NUR ---
fio2 decreased from 50% to 30% due to 148 pao2 and 100% spo2. rn notified on vent changes. Addendum: 04/10/20 at 0916 by VAN LANDIS RT Amended: Links added.
--- NOTE | 2020-04-10 09:57 | NUR ---
PATIENT GABAPENTIN DUE AT 0900. NONE IN THE [facility]. CALLED PHARMACY 2 TIMES, SAID THEY WILL SEND IT UP. AWAITING DELIVERY STILL NOT IN [facility] OR [facility].
[2020-04-10] MEDS ORDERED: VANCOMYCIN 0.75 GM in IV D5W 250 ML IV SCH (10:00)
[2020-04-10] MEDS: GABAPENTIN 100 MG CAPSULE GT SCH ×3 (10:01→17:16)
[2020-04-10 11:06] LABS: BASOPHILS % (AUTO) 0.3 % (0.0-2.0); EOSINOPHILS % (AUTO) 0.1 % (0.0-6.0); HEMATOCRIT 34 % (39-51); HEMOGLOBIN 10.7 g/dL (13.5-17.5); LYMPHOCYTES # (AUTO) 0.7 /CMM (0.8-4.8); LYMPHOCYTES % (AUTO) 6.2 % (20.0-44.0); MEAN CORPUSCULAR HGB CONC 31 g/dl (31.0-36.0); MEAN CORPUSCULAR VOLUME 94 fL (80-96); MONOCYTES # (AUTO) 0.5 /CMM (0.1-1.30); MONOCYTES % (AUTO) 4.1 % (2.0-12.0); NEUTROPHILS # (AUTO) 10.5 /CMM (1.8-8.9); NEUTROPHILS % (AUTO) 89.3 % (43.0-81.0); PLATELET COUNT (AUTO) 298 /CMM (150-450); RED BLOOD CELL COUNT(AUTO) 3.63 MIL/uL (4.5-6.0); WHITE BLOOD COUNT (AUTO) 11.8 K/uL (4.3-11.0)
--- NOTE | 2020-04-10 11:18 | NUR ---
PATIENT VANCOMYCIN DUE AT 1000. VANCOTROUGH STILL PENDING, SO HOLDING PER PROTOCOL.
[2020-04-10 11:24] LABS: CALCIUM, SERUM 6.7 mg/dL (8.5-10.1); CARBON DIOXIDE 19 mmol/L (21-32); CHLORIDE 105 mmol/L (98-107); CREATININE 4.1 mg/dL (0.6-1.3); GLUCOSE 155 mg/dL (74-106); PHOSPHORUS 4.8 mg/dL (2.5-4.9); POTASSIUM 4.5 mmol/L (3.5-5.1); SODIUM SERUM 140 mmol/L (136-145); UREA NITROGEN, BLOOD 76 mg/dL (7-18)
--- NOTE | 2020-04-10 11:33 | NUR ---
[facility] SHOWS VALUE OF 26. HOLDING DOSE OF VANCOMYCIN. PHARMACY NOTIFIED.
[2020-04-10 12:45] LABS: BAND % (MANUAL) 1 % (0.0-5.0); LYMPHOCYTES % (MANUAL) 6 % (16-48); MONOCYTES % (MANUAL) 6 % (0-11.0); NEUTROPHILS % (MANUAL) 87 (42-76)
--- NOTE | 2020-04-10 15:10 | NUR ---
WIRE HARNESS DESIGN ENGINEER NOTE DR RAZO NOTIFIED THAT BP 94/56 AND VERY LOW URINE OUTPUT ,PATIENT ON BUMEX DRIP AT THIS TIME ,IVF WAS D\C EARLIER , WILL CONT TO MONITOR CLOSELY, KEEP ,CLEAN DRY ,TURN REPOSITION DONE TOLERATED
[2020-04-10 15:55] LABS: ABG BASE EXCESS -8.2 mmol/L; ABG OXYGEN SATURATION 98.9 % (92.0-98.5); ABG PCO2 31.2 mmHg (35.0-45.0); ABG PH 7.342 (7.350-7.450); ABG PO2 148.8 mmHg (75.0-100.0); AaDO2 172.6 mmHg; COHb 0.3 % (0.5-1.5); MetHb 0.3 % (0.0-1.5); O2Hb 98.3 % (94.0-97.0); PEEP,BG 5 cm H2O; SITE, ABG Right Radial; VT, ABG 500 mL
--- NOTE | 2020-04-10 18:23 | NUR ---
PATIENT IN BED. NO ACUTE DISTRESS NOTED. PATIENT OBTUNDED. PATIENT ON MECHANICAL VENTILATOR, SATURATING WELL AT 100%, BREATHING EVEN AND UNLABORED. PATIENT ON RN PERIOPERATIVE, SINUS BRADYCARDIA NOTED WITH HEART RATE IN 50S. PATIENT G-TUBE IN PLACE, INTACT, PATENT, FLUSHED WELL. PATIENT SANTANA CATHETER IN PLACE, INTACT, DRAINING TO GRAVITY. PATIENT LEFT UPPER ARM MIDLINE INTACT, PATENT, FLUSHED WELL. PATIENT SAFETY MAINTAINED. CALL LIGHT WITHIN REACH. WILL ENDORSE PLAN OF CARE TO ONCOMING NURSE FOR CONTINUITY OF CARE.
--- NOTE | 2020-04-10 19:15 | NUR ---
MASH TUB COOKER OPERATOR NOTES Received pt vented with ETT intact. NAD, no SOB. Pt is obtunded. GTF running and florentino well. SANDI ML intact, flushes well. Chavez cath intact, with clear, yellow urine drained to BSD. Noted with BLE contracted. Bed locked and in lowest position. Kept clean and dry. Will cont to monitor
[2020-04-10] MEDS: SENNOSIDES 8.6 MG TABLET GT SCH (21:33)
[2020-04-10] MEDS: ATORVASTATIN 40 MG TABLET GT SCH (21:33)
[2020-04-11] VITALS (24 sets, daily range): BP systolic 94–134; BP diastolic 53–71
--- NOTE | 2020-04-11 03:41 | NUR ---
RT NOTE PT rec'd orally intubated via ETT #7.5 secured @ 23CM at the lipline. pt on [facility] vent on AC mode settings as charted. Pt shows no signs of resp distress or sob. Pt sx'd for thick large amt of blood tinged secretions. Alarms are set and auidble. Vent plugged into red outlet. Ambu bag bedside. Will continue to monitor closely. Addendum: 04/11/20 at 0341 by CAREN CALHOUN RT Amended: Links added.
[2020-04-11 05:06] LABS: BASOPHILS % (AUTO) 0.1 % (0.0-2.0); HEMATOCRIT 30 % (39-51); HEMOGLOBIN 9.9 g/dL (13.5-17.5); LYMPHOCYTES # (AUTO) 0.7 /CMM (0.8-4.8); LYMPHOCYTES % (AUTO) 5.4 % (20.0-44.0); MEAN CORPUSCULAR HGB CONC 33 g/dl (31.0-36.0); MEAN CORPUSCULAR VOLUME 91 fL (80-96); MONOCYTES # (AUTO) 0.5 /CMM (0.1-1.30); MONOCYTES % (AUTO) 3.8 % (2.0-12.0); NEUTROPHILS # (AUTO) 12.5 /CMM (1.8-8.9); NEUTROPHILS % (AUTO) 90.7 % (43.0-81.0); PLATELET COUNT (AUTO) 345 /CMM (150-450); RED BLOOD CELL COUNT(AUTO) 3.36 MIL/uL (4.5-6.0); WHITE BLOOD COUNT (AUTO) 13.8 K/uL (4.3-11.0)
[2020-04-11 05:52] LABS: ALANINE AMINOTRANSFERASE 13 U/L (12-78); ALKALINE PHOSPHATASE 62 U/L (46-116); ASPARTATE AMINOTRANSFERASE 19 U/L (15-37); BILIRUBIN,TOTAL 0.2 mg/dL (0.2-1.0); CALCIUM, SERUM 6.7 mg/dL (8.5-10.1); CARBON DIOXIDE 18 mmol/L (21-32); CHLORIDE 105 mmol/L (98-107); CREATININE 4.6 mg/dL (0.6-1.3); GLUCOSE 104 mg/dL (74-106); MAGNESIUM 1.9 mg/dL (1.8-2.4); PHOSPHORUS 5.6 mg/dL (2.5-4.9); POTASSIUM 3.9 mmol/L (3.5-5.1); SODIUM SERUM 139 mmol/L (136-145); TOTAL PROTEIN, SERUM 5.3 g/dL (6.4-8.2)
[2020-04-11] MEDS: PIPERACILLIN /TAZOBACTAM 3.375 G in IV D5W 50 ML IV SCH ×4 (06:04→23:34)
[2020-04-11] MEDS: JEVITY 1.2 CAL 1,000 ML BOTTLE GT PRN (06:13)
[2020-04-11 06:22] LABS: ALBUMIN 1.2 g/dL (3.4-5.0); UREA NITROGEN, BLOOD 83 mg/dL (7-18)
--- NOTE | 2020-04-11 07:15 | NUR ---
RN OPENING NOTE Received patient asleep in bed appears calm and relaxed no signs of distress. On room air tolerating well. Patient is AO x4 kenyan speaking but understands a little bit of Luxembourgish. No co pain or discomfort. Tele monitor reading ST 100-110 bpm. Bedside commode noted. Has RAC running KCL 20meq on NS @ 75ml/hr and D10 @ 100ml/hr. LAC running Regular Insulin @ 4u/hr. Safety measures reinforced. Call light within reach. Bed locked and on lowest position. Will cont to monitor. Addendum: 04/11/20 at 1141 by ASHOK DELAROSA RN NOTE WRONG PATIENT
--- NOTE | 2020-04-11 07:20 | NUR ---
RN OPENING NOTE Received patient asleep in bed appears calm and relaxed no signs of distress. On ETT 7.02/12 Vent Settings as follows: AC 16 TV 500 FIO2 30% PEEP 5. Patient is obtunded no signs pain or discomfort. Tele monitor reading SB 40-50 with BBB. Has SANDI Midline flushes well. Chavez catheter in place. Jevity 1.5 @ 45ml/hr running tolerating well. Safety measures reinforced. Call light within reach. Bed locked and on lowest position. Will cont to monitor.
[2020-04-11] MEDS: LEVOTHYROXINE SODIUM 100 MCG TABLET GT SCH (07:55)
[2020-04-11] MEDS: PANTOPRAZOLE 40 MG/PACK PACK GT SCH (07:55)
[2020-04-11] MEDS ORDERED: VANCOMYCIN 0.75 GM in IV D5W 250 ML IV SCH (08:00)
--- NOTE | 2020-04-11 08:00 | NUR ---
VANCO DOSE 0800 NOT GIVEN. VANCO TROUGH IS 25. INFORMED PHARMACY.
[2020-04-11 08:18] LABS: ABG BASE EXCESS -8.2 mmol/L; ABG OXYGEN SATURATION 96.8 % (92.0-98.5); ABG PCO2 31.2 mmHg (35.0-45.0); ABG PH 7.341 (7.350-7.450); ABG PO2 93.1 mmHg (75.0-100.0); AaDO2 84.1 mmHg; COHb 0.1 % (0.5-1.5); MetHb 0.1 % (0.0-1.5); O2Hb 96.6 % (94.0-97.0); SITE, ABG Right Radial; VENT MODE, BG AC 16 500 30% +0
[2020-04-11] MEDS: ZINC SULFATE 220 MG CAPSULE GT SCH (08:43)
[2020-04-11] MEDS: HYDROCORTISONE SOD SUCCINATE 100 MG/2 ML VIAL IV SCH ×3 (08:43→16:19)
[2020-04-11] MEDS: DOCUSATE SODIUM LIQ 100 MG/10 ML UDC GT SCH ×2 (08:43→16:18)
[2020-04-11] MEDS: APIXABAN 2.5 MG TABLET GT SCH ×2 (08:43→16:20)
[2020-04-11] MEDS: MULTIVIT W/MINERALS 1 TAB TABLET GT SCH (08:43)
[2020-04-11] MEDS: ASCORBIC ACID 500 MG TABLET GT SCH (08:44)
[2020-04-11] MEDS: BACLOFEN (10 MG) 10 MG TABLET GT SCH ×2 (08:44→16:19)
[2020-04-11] MEDS: ASPIRIN 81 MG TAB.CHEW GT SCH (08:48)
[2020-04-11] MEDS: HYDROCODONE/APAP 5/325MG 1 EACH TABLET GT SCH ×2 (08:48→12:50)
[2020-04-11] MEDS: THERAHONEY GEL 1.5 OZ TUBE TP SCH (08:50)
[2020-04-11] MEDS: GABAPENTIN 100 MG CAPSULE GT SCH ×3 (08:50→16:19)
--- NOTE | 2020-04-11 15:53 | NUR ---
ICU/RN DR WHITE WOULD LIKE TO TALK TO THE FAMILY REGARDING PT CONDITION. PT HAS NO FAMILY.HIS FRIEND NUMBER ON THE CHART [phone] IS DISCONNECTED. TALK TO THE SNF CASE MANAGEMENT JOSE.PT IS ON BIOETHIC IN THE SNF.DR WHITE NOTIFIED.
--- NOTE | 2020-04-11 18:46 | NUR ---
RN CLOSING NOTE Patient asleep in bed appears calm and relaxed no signs of distress. On ETT 7.02/12 Vent Settings no changes as follows: AC 16 TV 500 FIO2 30% PEEP 5. Patient is obtunded no signs pain or discomfort. Tele monitor reading SB 40-50 with BBB. All due meds given, vital signs within normal limits. SANDI Midline flushes well dressing intact. Kept extremities offload. Dressing changed kept clean and dry. Chavez catheter in place output 100ml. Doctor aware. Increased Jevity 1.5 to 50ml/hr running tolerating well. Checked placement of GT . Safety measures reinforced. Call light within reach. Bed locked and on lowest position. Will endorse to car shifter nurse for sahra.
--- NOTE | 2020-04-11 19:22 | NUR ---
BLOCK MACHINE OPERATOR NOTES Received pt vented with ETT intact. NAD, no SOB. Pt is obtunded. GTF running and florentino well. SANDI ML intact, flushes well. Chavez cath intact, with clear, yellow urine drained to BSD. BLE contracted. . Bed locked and in lowest position. Kept clean and dry. Will cont to monitor
[2020-04-11] MEDS: SENNOSIDES 8.6 MG TABLET GT SCH (21:55)
[2020-04-11] MEDS: ATORVASTATIN 40 MG TABLET GT SCH (21:55)
[2020-04-12] VITALS (24 sets, daily range): BP systolic 101–139; BP diastolic 55–74
--- NOTE | 2020-04-12 03:44 | NUR ---
Pt noted to have some bleeding from the wound below the right nares. Covered with 4x4 gauze. Will continue to monitor
[2020-04-12 05:18] LABS: BASOPHILS % (AUTO) 0.1 % (0.0-2.0); EOSINOPHILS % (AUTO) 0.1 % (0.0-6.0); HEMATOCRIT 33 % (39-51); HEMOGLOBIN 10.5 g/dL (13.5-17.5); LYMPHOCYTES # (AUTO) 0.7 /CMM (0.8-4.8); LYMPHOCYTES % (AUTO) 4.9 % (20.0-44.0); MEAN CORPUSCULAR HGB CONC 32 g/dl (31.0-36.0); MEAN CORPUSCULAR VOLUME 91 fL (80-96); MONOCYTES # (AUTO) 0.6 /CMM (0.1-1.30); NEUTROPHILS # (AUTO) 13.7 /CMM (1.8-8.9); NEUTROPHILS % (AUTO) 90.9 % (43.0-81.0); PLATELET COUNT (AUTO) 367 /CMM (150-450); RED BLOOD CELL COUNT(AUTO) 3.58 MIL/uL (4.5-6.0)
[2020-04-12] MEDS: PIPERACILLIN /TAZOBACTAM 3.375 G in IV D5W 50 ML IV SCH ×3 (05:32→17:43)
[2020-04-12 05:39] LABS: CARBON DIOXIDE 19 mmol/L (21-32); CHLORIDE 103 mmol/L (98-107); POTASSIUM 4.1 mmol/L (3.5-5.1); SODIUM SERUM 138 mmol/L (136-145)
[2020-04-12 05:40] LABS: CALCIUM, SERUM 7.2 mg/dL (8.5-10.1); CREATININE 5.1 mg/dL (0.6-1.3); GLUCOSE 128 mg/dL (74-106); MAGNESIUM 2.2 mg/dL (1.8-2.4); PHOSPHORUS 6.5 mg/dL (2.5-4.9)
[2020-04-12 06:09] LABS: UREA NITROGEN, BLOOD 91 mg/dL (7-18)
[2020-04-12] MEDS: JEVITY 1.2 CAL 1,000 ML BOTTLE GT PRN (06:49)
--- NOTE | 2020-04-12 08:05 | NUR ---
CUSTOMER SUPPORT ENGINEER OPENING NOTES PATIENT IN BED OBTUNDED, NO SOB OR DISCOMFORT NOTED AT THIS TIME. APPEARS CALM. NO ISOLATION. ON VENT. PATIENT HAS GTF JEVITY 1.2 50ML/HR. TELE MONITOR READING 47 SINUS ANDRZEJ WITH BBB. NO RESIDUAL NOTED FROM GT SITE, FLUSHED AND PATENT. NOTED LOWE URINE OUTPUT. BED AT THE LOWEST POSITION LOCKED. CALL LIGHT WITHIN REACH. WILL CONTINUE TO MONITOR.
[2020-04-12] MEDS: ASCORBIC ACID 500 MG TABLET GT SCH (08:18)
[2020-04-12] MEDS: ZINC SULFATE 220 MG CAPSULE GT SCH (08:18)
[2020-04-12] MEDS: DOCUSATE SODIUM LIQ 100 MG/10 ML UDC GT SCH ×2 (08:18→16:32)
[2020-04-12] MEDS: PANTOPRAZOLE 40 MG/PACK PACK GT SCH (08:19)
[2020-04-12] MEDS: ASPIRIN 81 MG TAB.CHEW GT SCH (08:19)
[2020-04-12] MEDS: LEVOTHYROXINE SODIUM 100 MCG TABLET GT SCH (08:19)
[2020-04-12] MEDS: MULTIVIT W/MINERALS 1 TAB TABLET GT SCH (08:19)
[2020-04-12] MEDS: HYDROCORTISONE SOD SUCCINATE 100 MG/2 ML VIAL IV SCH ×3 (08:20→16:32)
[2020-04-12] MEDS: THERAHONEY GEL 1.5 OZ TUBE TP SCH (08:20)
[2020-04-12] MEDS: BACLOFEN (10 MG) 10 MG TABLET GT SCH ×2 (08:20→16:32)
[2020-04-12] MEDS: APIXABAN 2.5 MG TABLET GT SCH ×2 (08:22→16:32)
[2020-04-12] MEDS: HYDROCODONE/APAP 5/325MG 1 EACH TABLET GT SCH ×2 (08:23→12:53)
[2020-04-12] MEDS: GABAPENTIN 100 MG CAPSULE GT SCH ×3 (08:41→16:32)
--- NOTE | 2020-04-12 10:50 | NUR ---
CRIME LABORATORY ANALYST NOTES NOTED BLEEDING FROM RIGHT NARE SKIN. NOTIFIED HOSPITALIST PERRY AND OBTAIN ORDER FOR SURGICEL AND PLACED ON THE WOUND.
--- NOTE | 2020-04-12 11:12 | NUR ---
MEDICAL SURGERY NURSE NOTES PER HOSPITALIST PERRY STOP ELIQUIS DUE TO THE BLEEDING.
--- NOTE | 2020-04-12 11:24 | NUR ---
OPERATOR RECEPTIONIST collaborated with case consultant Iesha to regarding if pt has any family or public guardian. Per LASHELL Julian, pt has no family per Rogelio at [facility] and pt will require bioethics. LASHELL Julian to notify Dr. Maldonado and TATI Hernandez.
[2020-04-12] MEDS ORDERED: CELLULOSE,OXIDIZED 1 PKT EACH MC ONE (11:30)
--- NOTE | 2020-04-12 12:00 | NUR ---
COUNTY COURT JUDGE NOTES PER HOSPITALIST ORDER GTF INCREASED TO 60ML/HR.
--- NOTE | 2020-04-12 16:32 | NUR ---
UPHOLSTERY CLEANER NOTES ELIQUIS NOT ADMINISTRATED DUE TO BLEEDING , HOSPITALIST PERRY AWARE.
--- NOTE | 2020-04-12 19:25 | NUR ---
MENTAL HEALTH COUNSELOR NOTES PATIENT IN BED NO SOB OR DISCOMFORT NOTED. HR 51 ANDRZEJ CARDIA WITH BBB. PATIENT TOLERATED GTF WELL NO RESIDUAL NOTED AT THIS TIME. IV SITE PATENT ON TKO. ALL MEDS GIVEN. LOW URINE OUTPUT. REPORT GIVEN TO HAND GLASS CUTTER NURSE FOR RENALDO.
--- NOTE | 2020-04-12 19:30 | NUR ---
RN NOTES RECEIVED PATIENT IN BED VENT DEPENDED ETT INTACT. PATIENT IS OBTUNDED. TELE MONITOR SHOWS SB IN 50'S WITH BBB. SANDI ML INTACT FLUSHES WELL. ON GTF JEVITY RUNNING AT 60CC/HR TOLERATING WELL NO RESIDUAL NOTED. F/C INTACT YELLOW URINE RUNNING TO GRAVITY. BLE CONTRACTED. SAFETY MEASURES IN PLACE, CALL LIGHT WITHIN REACH. WILL CONT TO MONITOR FOR RENALDO.
[2020-04-12] MEDS: ATORVASTATIN 40 MG TABLET GT SCH (21:16)
[2020-04-12] MEDS: SENNOSIDES 8.6 MG TABLET GT SCH (21:16)
[2020-04-13] VITALS (14 sets, daily range): BP systolic 88–109; BP diastolic 51–58
[2020-04-13 04:34] LABS: BASOPHILS % (AUTO) 0.1 % (0.0-2.0); HEMATOCRIT 32 % (39-51); HEMOGLOBIN 10.5 g/dL (13.5-17.5); LYMPHOCYTES # (AUTO) 0.7 /CMM (0.8-4.8); LYMPHOCYTES % (AUTO) 3.9 % (20.0-44.0); MEAN CORPUSCULAR HGB CONC 33 g/dl (31.0-36.0); MEAN CORPUSCULAR VOLUME 90 fL (80-96); MONOCYTES # (AUTO) 0.9 /CMM (0.1-1.30); MONOCYTES % (AUTO) 5.4 % (2.0-12.0); NEUTROPHILS # (AUTO) 15.2 /CMM (1.8-8.9); NEUTROPHILS % (AUTO) 90.6 % (43.0-81.0); PLATELET COUNT (AUTO) 366 /CMM (150-450); WHITE BLOOD COUNT (AUTO) 16.8 K/uL (4.3-11.0)
[2020-04-13 05:01] LABS: CALCIUM, SERUM 6.4 mg/dL (8.5-10.1); CARBON DIOXIDE 17 mmol/L (21-32); CHLORIDE 104 mmol/L (98-107); CREATININE 5.2 mg/dL (0.6-1.3); GLUCOSE 149 mg/dL (74-106); POTASSIUM 3.8 mmol/L (3.5-5.1); SODIUM SERUM 139 mmol/L (136-145)
[2020-04-13 05:06] LABS: UREA NITROGEN, BLOOD 102 mg/dL (7-18)
[2020-04-13] MEDS: PIPERACILLIN /TAZOBACTAM 3.375 G in IV D5W 50 ML IV SCH ×3 (06:00)
--- NOTE | 2020-04-13 07:04 | NUR ---
RN NOTES PATIENT RESTED WELL THROUGHOUT THE SHIFT NO ACUTE CHANGES NOTED. NO CHANGES IN VENT SETTING TOLERATING WELL ORDERED. ALL DUE MEDICATIONS WERE GIVEN TOLERATED WELL. SANDI MIDLINE FLUSHES WELL DRESSING INTACT. GTF TOLERATING WELL NO RESIDUAL NOTED. F/C INTACT YELLOW URINE DRAINING WELL TO GRAVITY. KEEP EXTREMITIES OFFLOAD. BED BATH GIVEN PATIENT TOLERATED WELL. DRESSING CHANGED KEPT CLEAN DRY AND COMFORTABLE. SAFETY MEASURES IN PLACE, CALL LIGHT WITHIN REACH. WILL ENDORSE TO AM NURSE FOR RENALDO.
[2020-04-13] MEDS: LEVOTHYROXINE SODIUM 100 MCG TABLET GT SCH (07:40)
[2020-04-13] MEDS: PANTOPRAZOLE 40 MG/PACK PACK GT SCH (07:40)
[2020-04-13] MEDS: JEVITY 1.2 CAL 1,000 ML BOTTLE GT PRN (07:52)
--- NOTE | 2020-04-13 08:04 | NUR ---
CELLULAR PHONE REPAIRER NOTES RECEIVED PATIENT IN BED, SLEEPING , COMFORTABLE. NO SOB OR DISCOMFORT NOTED AT THIS TIME. NO ISOLATION. 150CC ON SANTANA NOTED. 50ML RESIDUAL NOTED AT THE GT FEEDING. NO BLEEDING NOTED AT THIS TIME. IV SITE PATENT. HR 55. BED AT THE LOW POSITION LOCKED. CALL LIGHT WITHIN REACH . WILL CONTINUE TO MONITOR THE PATIENT.
[2020-04-13] MEDS ORDERED: VANCOMYCIN 0.75 GM in IV D5W 250 ML IV SCH (09:00)
[2020-04-13] MEDS: DOCUSATE SODIUM LIQ 100 MG/10 ML UDC GT SCH (09:24)
[2020-04-13] MEDS: HYDROCORTISONE SOD SUCCINATE 100 MG/2 ML VIAL IV SCH (09:24)
[2020-04-13] MEDS: GABAPENTIN 100 MG CAPSULE GT SCH (09:24)
[2020-04-13] MEDS: HYDROCODONE/APAP 5/325MG 1 EACH TABLET GT SCH (09:24)
[2020-04-13] MEDS: BACLOFEN (10 MG) 10 MG TABLET GT SCH (09:24)
[2020-04-13] MEDS: THERAHONEY GEL 1.5 OZ TUBE TP SCH (09:25)
[2020-04-13] MEDS: APIXABAN 2.5 MG TABLET GT SCH (09:26)
--- NOTE | 2020-04-13 09:55 | NUR ---
SERVICE CENTER REPRESENTATIVE NOTES CALLED PHARMACY AND NOTIFIED FOR VANCO THROUGH. PER PHARMACY DO NOT ADMINISTER THE VANCO.
[2020-04-13] MEDS ORDERED: MORPHINE SULFATE PF DRIP 250 MG in IV D5W 240 ML IV PRN (10:00)
[2020-04-13] MEDS: SCOPOLAMINE HBR 1 EA PATCH.TD72 TD SCH (10:25)
--- NOTE | 2020-04-13 10:33 | NUR ---
DEVELOPMENT DISABILITY SPECIALIST NOTES DR WHITE IS AWARE OF EXTUBATION.
--- NOTE | 2020-04-13 11:20 | NUR ---
ENVIRONMENTAL RESTORATION PLANNER NOTES PATIENT EXTUBATED.
--- NOTE | 2020-04-13 11:55 | NUR ---
SUPERVISOR ASBESTOS REMOVAL NOTES PATIENT TRANSFERRED TO 3W ROOM 306 ROOM 2. NO BELONGING.
--- NOTE | 2020-04-13 12:15 | NUR ---
MS RN NOTE PATIENT ARRIVED FROM ICU BY BED. REPORT RECEIVED FROM CHASIDY MCHUGH. PATIENT IN BED RESTING COMFORTABLY. PATIENT IN NO ACUTE DISTRESS. NO SOB NOTED. PATIENT BREATHING IS EVEN AND UNLABORED. PATIENT ON COMFORT CARE MEASURES. PATIENT BED ALARM IS ON. PATIENT BED IS LOCKED AND IN LOWEST POSITION. CALL LIGHT WITHIN REACH. WILL CONTINUE TO MONITOR.
--- NOTE | 2020-04-13 18:50 | NUR ---
MS RN CLOSING NOTE PATIENT IN BED RESTING COMFORTABLY. PATIENT IN NO ACUTE DISTRESS. NO SOB NOTED. PATIENT BREATHING IS EVEN AND UNLABORED. WOUND CARE PROVIDED ORDERED. PATIENT TURNED AND REPOSITIONED Q2H. PATIENT ON COMFORT CARE MEASURES. PATIENT ON MORPHINE DRIP 1MG/HR. PATIENT BED ALARM IS ON. PATIENT BED IS LOCKED AND IN LOWEST POSITION. CALL LIGHT WITHIN REACH. WILL ENDORSE CARE TO PM SHIFT FOR RENALDO.
--- NOTE | 2020-04-13 19:30 | NUR ---
ms stephanie initial notes received report from am nurse and seen pt in bed resting with eyes closed respiration even and non-labored, not in any distress noted. with 02 at 3 liters via nasa canula. pt also on Morphine drip at 1mg/hr as ordered for comfort care. skin warm and dry to touch. kept him comfortable at all times. will continue monitoring.
[2020-04-14] MEDS ORDERED: KEY,NONCONTROL,TO KEEP IN PYXI 1 EA MC ONE ×4 (07:07→21:32)
--- NOTE | 2020-04-14 07:09 | NUR ---
ms plate drying machine tender closing notes pt remains resting and breathing , respiration non-labored, still on morphine drip 1mg /hr. skin warm and dry to touch. morning care done and with the helped of agricultural production engineer , wound care dressing still dry and intact. kept him warm and comfortable at all times. endorse to am nurse for continuity of care.
--- NOTE | 2020-04-14 07:15 | NUR ---
shore man notes keys for the narcotic returned to the [facility] .
--- NOTE | 2020-04-14 07:35 | NUR ---
MS/RN OPENING NOTES RECEIVED PATIENT ON BED RESTING COMFORTABLY. PATIENT IN NO ACUTE DISTRESS. NO SOB NOTED. PATIENT BREATHING IS EVEN AND UNLABORED. PATIENT ON COMFORT CARE MEASURES. PATIENT ON MORPHINE DRIP 1MG/HR. PATIENT BED ALARM IS ON. PATIENT BED IS LOCKED AND IN LOWEST POSITION. CALL LIGHT WITHIN REACH. WILL CONTINUE TO MONITOR.
[2020-04-14] MEDS ORDERED: VANCOMYCIN 0.75 GM in IV D5W 250 ML IV SCH (08:00)
[2020-04-14] MEDS: THERAHONEY GEL 1.5 OZ TUBE TP SCH (09:28)
[2020-04-14 10:14] LABS: CALCIUM, SERUM 6.8 mg/dL (8.5-10.1); CARBON DIOXIDE 18 mmol/L (21-32); CHLORIDE 105 mmol/L (98-107); CREATININE 5.8 mg/dL (0.6-1.3); GLUCOSE 84 mg/dL (74-106); POTASSIUM 4.7 mmol/L (3.5-5.1); SODIUM SERUM 138 mmol/L (136-145)
[2020-04-14 10:20] LABS: UREA NITROGEN, BLOOD 107 mg/dL (7-18)
--- NOTE | 2020-04-14 19:15 | NUR ---
MS RN NOTES RECEIVED ON BED OBTUNDED,ON COMFORT MEASURES ONLY,MORPHINE DRIP IN PROGRESS AT 1MG/HR RATE VIA BUSINESS WRITER PUMP.SANTANA CATH IN PLACE DRAINING MINIMAL OUTPUT.O2 IN USED AT 3L/NC.WILL CONTINUE TO MONITOR STATUS.
--- NOTE | 2020-04-14 19:44 | NUR ---
MS/RN CLOSING NOTES PATIENT IS ON BED RESTING COMFORTABLY. PATIENT IN NO ACUTE DISTRESS. PATIENT WITH OXYGEN 3L VIA NASAL CANNULA IN PLACED. NO SOB NOTED. PATIENT BREATHING IS EVEN AND UNLABORED. PATIENT ON COMFORT CARE MEASURES. IV ACCESS AT LEFT UPPER ARM MIDLINE WITH MORPHINE DRIP 1MG/HR ON AND INFUSING WELL. CHECKED PATIENT EVERY 2 HOURS. PATIENT BED IS LOCKED AND IN LOWEST POSITION. CALL LIGHT WITHIN REACH. WILL ENDORSED TO DIRECT SUPPORT PROFESSIONAL FOR RENALDO.
[2020-04-14 20:00] VITALS: BP 103/47
--- NOTE | 2020-04-15 06:02 | NUR ---
MS RN NOTES APPEARS CALM BREATHING NON LABORED.MORPHINE DRIP REMAINS AT SAME RATE.MORNING CARE RENDERED,DRESSING CHANGE DONE ON RIGHT HEEL.REPOSITION PER PROTOCOL.GT CLAMPED.WILL ENDORSE TO DAY NURSE FOR RENALDO.
[2020-04-15 08:00] VITALS: BP 112/44
[2020-04-15] MEDS: THERAHONEY GEL 1.5 OZ TUBE TP SCH (09:33)
--- NOTE | 2020-04-15 11:29 | NUR ---
CHANGED PT'S MORPHINE DRIP BAG AND STARTED INFUSING AT 1 MG/HR WITNESSED BY LOLITA MUNOZ.WASTED 31.8 ML OF PREVIOUS MORPHINE BAG. DELAYED INFUSION DUE TO AWAITING FOR [employer] TO PROVIDE THE WATER TREATMENT PLANT REPAIRER TUBING WHICH NEEDS TO BE CALLED AT A TIME WE NEED IT. [employer] STATED THAT THEY CAN ONLY REFILL WATER TREATMENT PLANT REPAIRER TUBING IN ICU AND [facility]H ONLY AND NOT IN MED SURG UNITS.
[2020-04-15 16:00] VITALS: BP 83/47
--- NOTE | 2020-04-15 19:05 | NUR ---
MS RN: RECEIVED PATIENT Patient in bed, appears comfortable, eyes closed. O2 sat in low 90's, BLE cool to touch. Breathing non labored, RR 16. On Morphine drip at 1mg/hr for comfort. IV pump cleared 92.6ml VTBI witnessed by LOLITA Delgado. Fall precaution maintained.
--- NOTE | 2020-04-15 19:41 | NUR ---
MS RN NOTES RECEIVED ON BED OBTUNDED,ON COMFORT MEASURES ONLY,MORPHINE DRIP IN PROGRESS AT 1MG/HR RATE VIA TRANSPORTATION LEAD PUMP.NO S/S OF PAIN OR DISTRESS. SANTANA CATH IN PLACE DRAINING MINIMAL OUTPUT.O2 IN USED AT 3L/NC.WILL CONTINUE TO MONITOR STATUS.
[2020-04-15 20:00] VITALS: BP 131/73
[2020-04-15] MEDS ORDERED: KEY,NONCONTROL,TO KEEP IN PYXI 1 EA MC ONE (20:22)
--- NOTE | 2020-04-15 20:44 | NUR ---
RN: NEW BAG MORPHINE DRIP New bag Morphine sulfate hang with current rate at 1mg/hr. Wasted 91.2ml from previous bag witnessed by LOLITA Tran. Addendum: 04/15/20 at 2115 by JOJO GERARD RN CLARIFICATION: witnessed by LOLITA Concepcion
--- NOTE | 2020-04-15 22:15 | NUR ---
RN NOTES: RECEIVED ENDORSEMENT FROM RN/JOJO, OBSTUNDED, BEDRIDDEN,WITH O2 AT 3L/MIN VIA NC, O2 SAT IN LOW 90'S.ON MORPHINE DRIP AT 1MG/ML INFUSING VIA SANDI MIDLINE, VOLUME INFUSED PUMP CLEARED WITH JOJO/RN VTBI-98.5. ON SANTANA CATH DRAINING INTO DARK YELLOWISH/BROWNISH URINE IN SCANTY AMOUNT.FALL,SAFETY ADN ASPIRATION PRECAUTION OBSERVED, BED LOW AND LCOEKD, CALL LIGHT WITHIN EASY REACH.
--- NOTE | 2020-04-15 22:15 | NUR ---
MS RN: TRANSFERRED OF CARE Report given to LOLITA Gong for continuity of care. Morphine drip at 1mg/hr infusing in SANDI midline intact. Reviewed with LOLITA Clark 1.5ml , 98.5ml VTBI IV pump cleared.
--- NOTE | 2020-04-16 00:37 | NUR ---
RN NOTES: KEPT ON CLOSE WATCH, TURNING AND REPOSITIONING DONE, NEEDS ATTENDED.NON LABORED BREATHING, NO SOB NOTED.
--- NOTE | 2020-04-16 05:48 | NUR ---
RN NOTES: -MORNING CARE DONE, DRESSING CHANGE ON THE SACRAL AREA AND RIGHT FOOT, KEPT ELEVATED, PEG SITE DRESSING CHANGE, ORAL CARE DONE, REPOSITIONED AND KEPT IN COMFORTABLE POSITION. -CALL LIGHT KEPT WITHIN EASY REACH, ON FREQUENT VISUAL CHECK AT FREQUENT INTERVAL.
--- NOTE | 2020-04-16 07:32 | NUR ---
RN NOTES: -TURNING AND REPOSITIONING DONE, ENDORSED FOR CONTINUITY OF CARE, STILL ON MORPHINE DRIP AT 1 MG/HR INFUSING IN SANDI MIDLINE INTACT REVIEWED WITH JEFFREY/RN, VOLUME INFUSED 8.9ML, VTBI 89.35, PUMP CLEARED. NON LABORED BREATHING, NO FACIAL GRIMACE NOTED, KEPT COMFORTABLE IN BED.FOR BMP THIS MORNING, NPO, PEG SITE INTACT(NOT IN USE), SANTANA CATH IN SITE, TOTAL URINE OUTPUT 25 ML(OLIGURIC STAGE) SPO2-90'S.
[2020-04-16 08:00] VITALS: BP 80/40
--- NOTE | 2020-04-16 08:00 | NUR ---
RN notes PATIENT IN BED RESTING NO SOB OR ACUTE DISTRESS NOTED. PATIENT NONE RESPONSIVE. RESTING COMFORTABLE. WILL CONTINUE TO MONITOR.
[2020-04-16] MEDS: THERAHONEY GEL 1.5 OZ TUBE TP SCH (08:51)
[2020-04-16] MEDS: SCOPOLAMINE HBR 1 EA PATCH.TD72 TD SCH (11:03)
[2020-04-16 11:50] LABS: CALCIUM, SERUM 7.5 mg/dL (8.5-10.1); CARBON DIOXIDE 11 mmol/L (21-32); CHLORIDE 103 mmol/L (98-107); CREATININE 6.6 mg/dL (0.6-1.3); POTASSIUM 5.8 mmol/L (3.5-5.1); SODIUM SERUM 133 mmol/L (136-145)
[2020-04-16 12:27] LABS: GLUCOSE 41 mg/dL (74-106); UREA NITROGEN, BLOOD 118 mg/dL (7-18)
[2020-04-16 16:00] VITALS: BP 91/44
--- NOTE | 2020-04-16 18:24 | NUR ---
RN NOTES PATIENT IN BED RESTING NO SOB OR ACUTE DISTRESS NOTED. PATIENT ON COMFORT MEASURES. SANTANA INTACT PATENT. PATIENT ON MORPHINE DRIP RUNNING 2ML/HR. WITH MIDLINE INTACT PATENT. WILL ENDORSE CARE TO PM SHIFT.
[2020-04-16 20:00] VITALS: BP 80/39
--- NOTE | 2020-04-16 20:00 | NUR ---
MS RN OPENING NOTE: Received patient in bed resting comfortably. Patient is obtunded. On 3L nasal canula. Breathing is equal and unlabored. Patient is in no signs of pain or distress at this time. Left upper arm midline noted; flushes well, patent, no redness, or infiltration. Infusing morphine. Patient is on comfort care measures. Safety precaution in place; bed is in lowest level, alarm is on, bed brakes are on, side rails x2 are up, and call light is within reach. Will continue to monitor.
--- NOTE | 2020-04-17 07:05 | NUR ---
MS RN CLOSING NOTE: Patient in bed, sleeping comfortably. On 3L nasal canula. Breathing is equal and unlabored. Patient is in no signs of pain or distress at this time. Patient is on comfort care measures. Safety precaution in place; bed is in lowest level, alarm is on, bed brakes are on, side rails x2 are up, and call light is within reach. Will endorse to morning nurse.
[2020-04-17 08:03] VITALS: BP 60/29
[2020-04-17] MEDS: THERAHONEY GEL 1.5 OZ TUBE TP SCH (09:19)
[2020-04-17 10:59] VITALS: BP 109/64
[2020-04-17 11:12] LABS: CALCIUM, SERUM 6.9 mg/dL (8.5-10.1); CARBON DIOXIDE 12 mmol/L (21-32); CHLORIDE 100 mmol/L (98-107); CREATININE 7.1 mg/dL (0.6-1.3); SODIUM SERUM 132 mmol/L (136-145)
[2020-04-17 11:25] LABS: GLUCOSE 41 mg/dL (74-106); POTASSIUM 8.1 mmol/L (3.5-5.1); UREA NITROGEN, BLOOD 125 mg/dL (7-18)
--- NOTE | 2020-04-17 11:33 | NUR ---
ms rn notes call received from lab with critical lab results, aware patient on comfort measures. continue keep comfortable and morphine drip.
--- NOTE | 2020-04-17 14:45 | NUR ---
MS RN NOTES PATIENT APPEARS TO BE IN DISTRESS, MORPHINE DRIP INCREASED TO 6ML/HR.
--- NOTE | 2020-04-17 19:36 | NUR ---
MS RN NOTES PATIENT IN BED RESTING. KEPT COMFORTABLE. MORPHINE DRIP INCREASED TO 8MG TO KEEP COMFORTABLE.
--- NOTE | 2020-04-17 20:00 | NUR ---
MS RN OPENING NOTE: Patient in bed sleeping comfortably, not arousable. Noted Gtube clamped. Noted Left upper midline running morphine drip. Midline flushes well, patent, no redness, or infiltration. Safety precaution in place, bed in lowest level, brakes are on, side rails x2 are up, alarm is on, and call light is within reach. Will continue to provide comfort measures and monitor.
--- NOTE | 2020-04-18 06:40 | NUR ---
MS RN CLOSING NOTE: Patient in bed sleeping comfortably. In no sign of pain. Safety precaution in place, bed in lowest level, brakes are on, side rails x2 are up, alarm is on, and call light is within reach. Will endorse to next shift.
--- NOTE | 2020-04-18 07:24 | NUR ---
MS/RN Opening note Patient received from shift foreman. Patient for comfort measures only, DNR/DNI order noted in computer. Morphine drip at 8ml/hr, may titrate up to 10mg/hr. Appears comfortable, in no distress at this time. Will continue to monitor and ensure safety and comfort.
--- NOTE | 2020-04-18 07:52 | NUR ---
MS/RN AUDIO VISUAL AIDS DIRECTOR AUDIO VISUAL AIDS DIRECTOR morphine bag changed at 0745. Infussion continues at same rate.
[2020-04-18] MEDS: THERAHONEY GEL 1.5 OZ TUBE TP SCH (08:20)
--- NOTE | 2020-04-18 10:00 | NUR ---
MS/RN S/B Dr Horner Seen by Dr Horner - continue with current plan of care.
--- NOTE | 2020-04-18 11:48 | NUR ---
MS/RN S/B Dr Castro DNP Seen by DNP - continue with current plan of care.
--- NOTE | 2020-04-18 14:00 | NUR ---
MS/RN Rounds Appears comfortable at this time, morphine continues to infuse at 8mg/hr.
--- NOTE | 2020-04-18 18:15 | NUR ---
MS/RN End note Patient remians comfortable, no distress noted. Respirations at 6 breaths per minute. Morphine bag to be changed at 1999. Will endorse to timber incisor operator.
--- NOTE | 2020-04-18 19:15 | NUR ---
MS/RN OPENING NOTES RECEIVED PATIENT IN BED ON OXYGEN VIA 3 LITER, RESPIRATIONS EVEN AND UNLABORED, SKIN WARM TO TOUCH, UNABLE TO AROUSE WITH TOUCH, REQUIRE EXTENSIVE ASSISTANCE, PATIENT ON NPO AT THIS TIME ON COMFORT MEASURES, CURRENTLY ON MORPHINE DRIP WITH RATE OF 8 ML/HR, RECEIVED NEW MORPHINE DRIP FOR PATIENT JUST NOW, TO HAVE ANOTHER RN WITNESS AND CO SIGNED, TOTAL VOLUME CLEARED AT 88.8. TO START A NEW BAG AT 1999. PATIENT WAS NOT ABLE TO GET VITAL SIGNS REPORTED BY AM SHIFT, SANTANA WITH SCANTY AMOUNT OF URINE. PATIENT WITH MULTIPLE WOUNDS IN BODY, SACRAL AREA, RIGHT FOOT AND NOSE WITH SCAR. PATIENT FAMILY UNABLE TO BE CONTACTED MD ANI, TO MONITOR FOR ANY CHANGESM MD RAZO ATTENDING
[2020-04-18] MEDS ORDERED: KEY,NONCONTROL,TO KEEP IN PYXI 1 EA MC ONE ×3 (19:41→22:45)
--- NOTE | 2020-04-18 19:50 | NUR ---
MS/RN NOTES THERAPEUTIC RECREATION ASSISTANT MORPHINE OF 6D, WITNESSED BY 6 ML WAS WASTED, VERIFIED AND WASTED WITH LOLITA DALY. MEW BAG WAS STARTED AND TO START AT 8 MG/HR RATE. CO SIGNED AND WITNESSED BY LOLITA DALY. PATIENT VITAL SIGNS UNABLE TO OBTAIN. TO MONITOR.PATIENT URINE SCANT, EDEMA ON BUE, BILATERAL FOOT ASHEN COLORED WITH WOUND, CONTRACTED. TO MONITOR.
--- NOTE | 2020-04-18 20:16 | NUR ---
LABORED BREATHING, SKIN COOL TO TOUCH, CHANGES IN URINATION, SWELLING OF ARMS,LETHARGIC, UNABLE TO EAT.COMFORT MEASURES MONITORING FOR ANY CHANGES.
--- NOTE | 2020-04-18 20:34 | NUR ---
RESPIRATION 14, ON OXYGEN, FOR COMFORT, PATIENT ON COMFORT MEASURES, NO GUARDING OR GRIMACE, WITH REPAIRER SCREEN CRUSHER PUMP SET AT PRESCRIBED RATE OF 8 ML/HR. WARM BLANKET PROVIDED. KEEP WARM,
--- NOTE | 2020-04-18 21:00 | NUR ---
ms/rn notes RECEIVED MORPHINE BAG FROM PHARMACY DELIVERED AND PLACE BAG AND KEPT IN CONTROLLED LOCKED.
--- NOTE | 2020-04-18 21:29 | NUR ---
MONITORED PATIENT, RESPIRATION AT 12. SKIN COOL TO TOUCH.
--- NOTE | 2020-04-18 22:26 | NUR ---
time of announced by charge nurse RN Colleen Jimenes md Cheryl Catalan made aware, RN supervisor electronic testing Clarissa Duncan contacted.Reported no breathing, no rise and fall in chest, no urine out put, pale and cool to touch.
--- NOTE | 2020-04-18 22:27 | NUR ---
post mortem provided, kept patient clean and removed mid line in left upperarm, nieves catheter, kept gtube but dkept dressing on. Mop Maker pump turned off and witnesses and cosigned for amount used and amount for waste, total 21 ml infused amount and the remaining 79 ml wasted with witnesses by charge nurse Kenny. placed id band,.identifiers placed on bag and toe, no personal belongings.
--- NOTE | 2020-04-18 22:38 | NUR ---
one legacy contacted and reported obtained , reported medical diagnosis and with dementia that is unable to proceed.
--- NOTE | 2020-04-18 23:49 | NUR ---
Security and Sap Payroll Consultant contacted for body to be [place] [facility]
--- NOTE | 2020-04-19 00:06 | NUR ---
two security and rn checked patient id band and identification, wheeled to the [facility] [place].
== END 2020-04-18 22:26 | disposition expired | DRG 870 ==
LOC: ER 07:48 → ICU 09:53 → MED 04-13 12:15
PROVIDERS: ADMIT Student in an Organized Health Care Education/Training Program; ATTEND Nurse Practitioner Acute Care
PROC: 5A1955Z Respiratory Ventilation, Greater than 96 Consecutive Hours (ICD-10-PCS; principal; 2020-04-05)
PROC: 0BH17EZ Insertion of Endotracheal Airway into Trachea, Via Natural or Artificial Opening (ICD-10-PCS; 2020-04-05)
PROC: 30233N1 Transfusion of Nonautologous Red Blood Cells into Peripheral Vein, Percutaneous Approach (ICD-10-PCS; 2020-04-08)
PROC: 05HA33Z Insertion of Infusion Device into Left Brachial Vein, Percutaneous Approach (ICD-10-PCS; 2020-04-09)
DX: A41.9 Sepsis, unspecified organism (principal); L89.613 Pressure ulcer of right heel, stage 3; L89.893 Pressure ulcer of other site, stage 3; J18.9 Pneumonia, unspecified organism; I21.A1 Myocardial infarction type 2; N17.0 Acute kidney failure with tubular necrosis; R65.21 Severe sepsis with septic shock; J96.01 Acute respiratory failure with hypoxia; E43 Unspecified severe protein-calorie malnutrition; J96.02 Acute respiratory failure with hypercapnia; G92 Toxic encephalopathy; D68.59 Other primary thrombophilia; E44.0 Moderate protein-calorie malnutrition; I69.351 Hemiplegia and hemiparesis following cerebral infarction affecting right dominant side; E27.40 Unspecified adrenocortical insufficiency; J98.11 Atelectasis; Z51.5 Encounter for palliative care; Z66 Do not resuscitate; E86.0 Dehydration; E78.5 Hyperlipidemia, unspecified; Z79.82 Long term (current) use of aspirin; Z79.899 Other long term (current) drug therapy; R91.8 Other nonspecific abnormal finding of lung field; Y95 Nosocomial condition; Z74.09 Other reduced mobility; Z74.01 Bed confinement status; R13.10 Dysphagia, unspecified; E03.9 Hypothyroidism, unspecified; D63.8 Anemia in other chronic diseases classified elsewhere; E87.5 Hyperkalemia; L89.899 Pressure ulcer of other site, unspecified stage; F09 Unspecified mental disorder due to known physiological condition; I50.9 Heart failure, unspecified; G30.9 Alzheimer's disease, unspecified; F02.80 Dementia in other diseases classified elsewhere, unspecified severity, without behavioral disturbance, psychotic disturbance, mood disturbance, and anxiety; L89.626 Pressure-induced deep tissue damage of left heel; M62.562 Muscle wasting and atrophy, not elsewhere classified, left lower leg; M62.561 Muscle wasting and atrophy, not elsewhere classified, right lower leg; Z79.01 Long term (current) use of anticoagulants; Z86.19 Personal history of other infectious and parasitic diseases; Z87.01 Personal history of pneumonia (recurrent)
CPT/HCPCS: 31720; 36410; 36415; 36600; 71045-TC; 80048-TC; 80053-TC; 80061-TC; 80076-TC; 80202-TC; 82533; 82728-TC; 82803-TC; 83540-TC; 83605-TC; 83735-TC; 84100-TC; 84439-TC; 84443-TC; 84484-TC; 85025-TC; 85378-TC; 85730-TC; 86140-TC; 86706; 86850-TC; 86921-TC; 87040-TC; 87340; 94002-TC; 94003-TC; 94799-TC; A4216; A6253; A6403; A6407; G0378; J1100; J1650; J1720; J1940; J2274; J2370; J2543; J3370; J3490; J7030; J7040; J7042; J7050; J7060; P9016-BL; U0003-CS